=== PATIENT | male | born 1960 | race Caucasian/White ===

== ENCOUNTER → 2019-10-11 10:09 | Outpatient (POV) | payer MEDICAID, SELFPAY ==
[2019-10-11 10:33] VITALS: BP 128/70; PULSE 74; RESP 18; O2SAT 98; BMI 28.3
--- NOTE | 2019-10-11 11:21 | HMH.PMCON ---
Assessment and Plan (1) Degenerative joint disease (DJD) of lumbar spine Current visit: Yes Status: Chronic Category: Medical Code(s): M47.816 - Spondylosis without myelopathy or radiculopathy, lumbar region (2) Facet arthropathy Current visit: Yes Status: Chronic Category: Medical Code(s): M47.819 - Spondylosis without myelopathy or radiculopathy, site unspecified (3) Back pain Current visit: No Status: Chronic Qualifiers: Back pain location: low back pain Chronicity: chronic Back pain laterality: midline Sciatica presence: without sciatica Qualified Code(s): M54.5 - Low back pain; G89.29 - Other chronic pain Category: Medical Code(s): M54.9 - Dorsalgia, unspecified - Assessment and plan all Dx Assessment and Plan for all problems:: We will retrieve his notes from [facility] and move forward with the radiofrequency ablation once those are received. I will follow-up with the patient after this reassess his symptoms at that time he has been instructed to call the office if he has any issues prior to his next appointment. We specifically discussed risk factors for Covid-19 including age, heart or lung disease, diabetes, immunosuppression and travel. We also discussed that NSAIDs may worsen Covid-19 infection symptoms and that they should not be used to treat Covid-19 symptoms. Patient was also informed that corticosteroids in any form oral or injectable will decrease immune response and may increase risk of Covid-[address] Villarreal has reviewed this patient's chart and this note and agrees with plan of care. Patient has been instructed to call the office if they have any issues prior to the next appointment. HPI - Data of Consult Consult date: 10/11/19 Requesting Physician: Mellissa العراقي APRN Primary Care Provider: Darrel Shukla MD - Consult Narrative Reason for consult: Back pain, left leg pain History of present illness: Mr. Ridley is a 59 year old male who presents today for consultation in regards to his back and left leg pain. Patient has been being treated at the [facility] center in [place] getting epidural injections and facet joint injections and radiofrequency ablations. Patient states he does extremely well with this. He is awaiting a radiofrequency ablation of his lumbar spine. We will get the notes for this from his previous pain clinic. Patient would like to transfer care here due to the fact that it is much closer than the previous clinic. Patient does stay in an assisted living home where he receives medications including Percocet he states it is beneficial however he would prefer not to take the medication. He rates his pain today a 7 out of 10. CC: Mellissa العراقي APRN [facility] History I have reviewed the patient's past medical history: Yes Medical History: Reports:: Chronic Obstructive Pulmonary Disease (COPD), Diabetes Mellitus Type 2, Hyperlipidemia, Hypertension, Seizures Denies:: Cancer, MRSA *Have you ever received a pneumonia vaccine?: Yes *Have you received a flu vaccine this season?: Yes Other Medical History: Reports: Glaucoma Amputation: No - *Social History Smoking Status: Current every day smoker Alcohol Intake: never *Occupational Status:: disabled Housing: house *Travel in the last 8 weeks: None Family Hx:: Unable to obtain Review of Systems - Review of Systems ROS General: no recent weight change, no fever, no sleep disturbances Respiratory: no cough, no shortness of air, no recurring pulmonary infections Cardiovascular/Peripheral Vascular: No chest pain, No palpitations, no edema, no shortness of breath. Gastrointestinal: no new onset incontinence, normal bowel movements reported Genitourinary: no new onset incontinence Musculoskeletal: Back pain, leg pain Psychiatric: normal mood/ affect Neurological: [denies new onset weakness in extremities], [denies new onset balance issues] [facility]
== END ==
PROVIDERS: PCP Emergency Medicine; Visit Provider Clinical Nurse Specialist Family Health
DX: M51.36 Other intervertebral disc degeneration, lumbar region (principal); M47.816 Spondylosis without myelopathy or radiculopathy, lumbar region; M54.5 Low back pain; G89.29 Other chronic pain
CPT/HCPCS: 99202

== ENCOUNTER 2019-11-09 09:41 | Day surgery (SDC) | payer MEDICAID, SELFPAY ==
[2019-11-09 10:08] LABS: Adenovirus,PCR Not Detected (NotDetected); Bordetella Pertussis Not Detected (NotDetected); Chlamydophila Pneumoniae, PCR Not Detected (NotDetected); Coronavirus 19, PCR Not Detected (NotDetected); Coronavirus 229E Not Detected (NotDetected); Coronavirus NL63 Not Detected (NotDetected); Coronavirus OC43 Not Detected (NotDetected); Coronovirus HKU1,PCR Not Detected (NotDetected); Human Metapneumovirus Not Detected (NotDetected); Influenza A, PCR Not Detected (NotDetected); Influenza AH1, 2009 Not Detected (NotDetected); Influenza AH1, PCR Not Detected (NotDetected); Influenza AH3,PCR Not Detected (NotDetected); Influenza B, PCR Not Detected (NotDetected); Mycoplasma Pneumoniae, PCR Not Detected (NotDected); Parainfluenza 1, PCR Not Detected (NotDetected); Parainfluenza 2, PCR Not Detected (NotDetected); Parainfluenza 3, PCR Not Detected (NotDetected); Parainfluenza 4, PCR Not Detected (NotDetected); Respiratory Syncytial Virus Not Detected (NotDetected); Rhinovirus/Enterovirus Not Detected (NotDetected)
[2019-11-09 10:32] VITALS: BP 155/50; PULSE 60; RESP 18; TEMP 36.8; O2SAT 96; BMI 28.7
--- NOTE | 2019-11-09 11:00 | PC.NURSE ---
FSBS 345. Dr. Villarreal notified with no new orders.
[2019-11-09 11:01] LABS: POC Glucose,Bedside 345 (70-110)
[2019-11-09 12:29] VITALS: BP 165/84; PULSE 65; RESP 18; O2SAT 98
[2019-11-09 12:30] VITALS: BP 168/85; PULSE 85; RESP 18; O2SAT 98
--- NOTE | 2019-11-09 12:38 | HMH.PMPROC ---
- Procedure Date: 11/09/19 Time: 12:38 Anesthesiologist:: Steven Villarreal MD Complications:: None Pre-procedure Diagnosis:: Degenerative disc disease of lumbar spine with lumbar spondylosis and facet arthropathy of lumbar spine Post-procedure Diagnosis:: Same Indications for Procedure:: This patient is a pleasant 59-year-old white male who we are treating for low back pain with lumbar spondylosis and facet arthropathy of lumbar spine. He has had previous medial branch blocks with good relief of pain symptoms for several months. His pain is now returned. He presents for radiofrequency ablation to the same facet joints of L3-L4, 4 5 and L5-S1. We will start with the left side today followed by the right side in 2 weeks. Procedure Details:: Lumbar RFA informed consent was obtained and the risk and benefits of the procedure was explained to the patient. Patient was placed prone on the procedure table. The patient was prepped and draped in sterile fashion. C-arm fluoroscopy was used to view the lumbar spine. The skin and subcutaneous tissues were anesthetized using lidocaine. I placed 20-gauge RF needles into the facet joints of L3-L4, L4 5 and L5-S1 levels on the left side. We underwent sensory stimulation. There is good sensory stimulation at 0.8 V. We underwent motor stimulation. There is no motor stimulation at 2 V. We then anesthetized these levels with lidocaine and Depo-Medrol. I used a total of 40 mg Depo-Medrol for all 3 levels. I then burned all 3 levels of L3-L4, 4 5 and L5-S1 facet joint/medial branches on the left side each one for 4 minutes at 80 ?C. Patient tolerated the procedure well with no complication. Plan and Disposition:: We will follow-up with him in 2 weeks. Will reevaluate symptoms at that time.
[2019-11-09 12:41] VITALS: BP 155/60; PULSE 60; RESP 18; O2SAT 98
== END 2019-11-09 12:43 | disposition home or self-care (01) ==
PROVIDERS: PCP Emergency Medicine; Visit Provider Anesthesiology
DX: M51.36 Other intervertebral disc degeneration, lumbar region (principal); M47.816 Spondylosis without myelopathy or radiculopathy, lumbar region; M54.06 Panniculitis affecting regions of neck and back, lumbar region
CPT/HCPCS: 64635; 64636; 82962; 87581; 87633; 87798; Q9966

== ENCOUNTER → 2019-11-21 09:06 | Outpatient (POV) | payer MEDICAID, SELFPAY ==
[2019-11-21 09:25] VITALS: BP 163/74; PULSE 78; RESP 18; O2SAT 98; BMI 28.3
--- NOTE | 2019-11-21 09:25 | HMH.PAINSOAP ---
[facility] Pain Management SOAP Note Subjective:: Patient is a pleasant 59-year-old white male who we are treating for low back pain with lumbar spondylosis and facet arthropathy. He is only affected on the left side. Patient has had RFA's in the past with good relief however he is having some increased pain after his last injection. We discussed how to manage this. We discussed either utilizing a facet joint injection to decrease inflammation or an oral steroid. Patient states he is unable to take oral steroids due to his diabetes. We will set him up for an L3-L4 L4-L5 L5-S1 left-sided facet joint injection. He rates his pain a 7 out of 10. Pain is quite focal in nature. He is not on any anticoagulation therapy. ROS General: no recent weight change, no fever, no sleep disturbances Respiratory: no cough, no shortness of air, no recurring pulmonary infections Cardiovascular/Peripheral Vascular: No chest pain, No palpitations, no edema, no shortness of breath. Gastrointestinal: no new onset incontinence, normal bowel movements reported Genitourinary: no new onset incontinence Musculoskeletal: Left lumbar back pain Psychiatric: normal mood/ affect, Neurological: [denies new onset weakness in extremities], [denies new onset balance issues] Objective:: Physical Exam General: Alert and oriented x3, no acute distress, pleasant and cooperative, [on room air] Lungs: Resps E/U, Symmetrical chest expansion, Eyes: PERRL Musculoskeletal: Flexion and extension of lumbar spine somewhat guarded secondary to pain, deep tendon reflexes normal, strength in upper and lower extremities [5/5], [abnormal gait noted] Neurological: speech clear, financial data analyst equal, no gross sensory deficits Assessment:: Degenerative disc disease lumbar spine lumbar spondylosis lumbar facet arthropathy Plan:: We will move forward with a left-sided L3-L4 L4-L5 L5-S1 facet joint injection/medial branch block. I will follow-up with him after this reassess his symptoms at that time. Patient's been instructed to call the office if she has any issues prior to his next appointment. Dr. Villarreal has reviewed this note and agrees with this plan of care. This note was dictated using voice recognition software and may contain errors or omissions [facility] History I have reviewed the patient's past medical history: Yes Medical History: Reports:: Chronic Obstructive Pulmonary Disease (COPD), Diabetes Mellitus Type 1, Diabetes Mellitus Type 2, Hyperlipidemia, Hypertension Denies:: Cancer, MRSA, Seizures *Have you ever received a pneumonia vaccine?: No *Have you received a flu vaccine this season?: No Other Medical History: Reports: Glaucoma Amputation: No - *Social History Smoking Status: Current every day smoker Tobacco Type: cigarettes # Packs/Day (cigarettes): 1 Alcohol Intake: never *Occupational Status:: retired Housing: house *Travel in the last 8 weeks: None Family Hx:: Unable to obtain
== END ==
PROVIDERS: PCP Emergency Medicine; Visit Provider Clinical Nurse Specialist Family Health
DX: M51.36 Other intervertebral disc degeneration, lumbar region (principal); M47.816 Spondylosis without myelopathy or radiculopathy, lumbar region; M54.06 Panniculitis affecting regions of neck and back, lumbar region
CPT/HCPCS: 99212

== ENCOUNTER → 2019-11-29 12:11 | Outpatient (CLI) | payer MEDICAID, SELFPAY ==
--- NOTE | 2019-11-29 12:18 | XR_ITS ---
PROCEDURE: XR KNEE LT 4V CLINICAL INDICATION: left knee pain COMPARISON: No exams were available for comparison FINDINGS: No fracture or dislocation. No lytic or blastic change. There is normal mineralization. The joint spaces are well-preserved. No significant degenerative/arthritic changes. No erosive changes evident. Other findings:None. IMPRESSION: No acute findings. Dictated by: Dr. Sang Manning MD 11/29/2019 13:[address] Sang Manning MD in [place] 11/29/2019 13:11
--- NOTE | 2019-11-29 12:18 | XR_ITS ---
PROCEDURE: XR TIBIA FIBULA LT 2V CLINICAL INDICATION: left leg pain COMPARISON: No exams were available for comparison FINDINGS: AP and lateral views show the tibia and fibula to be intact. There is no definite cystic lesion identified in either bone. The soft tissues are normal. The knee is only partially visualized but there is no significant degenerate change noted. IMPRESSION: No acute findings. Dictated by: Dr. Sang Manning MD 11/29/2019 13:[address] Sang Manning MD in [place] 11/29/2019 13:11
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
== END ==
PROVIDERS: PCP Emergency Medicine; Visit Provider Orthopaedic Surgery
DX: M25.562 Pain in left knee (principal); M79.605 Pain in left leg; M25.552 Pain in left hip
CPT/HCPCS: 73502; 73564; 73590

== ENCOUNTER 2019-12-02 09:53 | Day surgery (SDC) | payer MEDICAID, SELFPAY ==
[2019-12-02 10:28] VITALS: BP 139/59; PULSE 62; RESP 18; O2SAT 98; BMI 28.3
[2019-12-02 10:34] LABS: POC Glucose,Bedside 253 (70-110)
[2019-12-02 11:13] VITALS: BP 152/87; PULSE 85
[2019-12-02 11:14] VITALS: BP 150/78; PULSE 82; RESP 18; O2SAT 99
[2019-12-02 11:24] VITALS: BP 154/56; PULSE 63; RESP 20; O2SAT 98
--- NOTE | 2019-12-02 12:06 | HMH.PMPROC ---
- Procedure Date: 12/02/19 Time: 12:06 Anesthesiologist:: Steven Villarreal MD Complications:: None Pre-procedure Diagnosis:: Degenerative disc disease of lumbar spine with more spondylosis and facet arthropathy Post-procedure Diagnosis:: Same Indications for Procedure:: Patient is a pleasant 59-year-old white male who we are treating for low back pain with lumbar spondylosis and facet arthropathy. He has had RFA's in the past with good relief of his pain symptoms. Pain is now starting to come back on the left side. We will do repeat medial branch block/facet joint injections of L3-L4, 4 5 and L5-S1 left side. Procedure Details:: Lumbar medial branch block Informed consent was obtained and the risks and benefits of the procedure was explained to the patient. The back was prepped using ChloraPrep. The skin and subcutaneous tissues were anesthetized using lidocaine. I placed 22-gauge spinal needles into the facet joint/medial branches of L3-L4, L4-L5 and L5-S1 on the left side. Needle placement was confirmed with dye. After this we injected 3 mL bupivacaine 0.25% and Depo-Medrol 13 mg into each facet joint/medial branch of L3-L4, L5 and L5-S1 on the left side. We used a total of 40 mg Depo-Medrol for all 3 levels on the left side. The patient tolerated the procedure well with no complications. Plan and Disposition:: We will follow-up with him in 2 weeks. Will reevaluate symptoms at that time. If this is successful we will plan on RFA to the facet joint/medial branches of L3-4, L4-5 and L5-S1 on the left side.
== END 2019-12-02 11:25 | disposition home or self-care (01) ==
LOC: SC.PAINP 09:53
PROVIDERS: PCP Emergency Medicine; Visit Provider Anesthesiology
DX: M51.36 Other intervertebral disc degeneration, lumbar region (principal); M47.816 Spondylosis without myelopathy or radiculopathy, lumbar region; M12.88 Other specific arthropathies, not elsewhere classified, other specified site; I10 Essential (primary) hypertension; E11.9 Type 2 diabetes mellitus without complications; Z91.040 Latex allergy status
CPT/HCPCS: 64493; 64494; 64495; 82962; J1040; Q9966

== ENCOUNTER → 2019-12-06 10:37 | Outpatient (CLI) | payer MEDICAID, SELFPAY ==
--- NOTE | 2019-12-06 10:37 | MR_ITS ---
PROCEDURE: MR KNEE LT WO CON CLINICAL INDICATION: evaluate for tears/ cysts Medial knee pain COMPARISON: XR KNEE LT 4V from 11/29/2019 TECHNIQUE: Routine multiplanar multi echo sequences are performed without gadolinium enhancement. FINDINGS: The cruciate ligaments, collateral ligaments, quadriceps tendon, and patellar tendon appear intact. Patellar cartilage has an unremarkable appearance. No meniscal tear evident. There are mild osteoarthritic changes. There is a small knee joint effusion. IMPRESSION: Minimal osteoarthritic changes with small knee joint effusion. No internal derangement evident. Dictated by: Kaden Franklin MD 12/07/2019 14:23 Electronically signed by Kaden Franklin MD in [place] 12/07/2019 14:23
== END ==
PROVIDERS: PCP Emergency Medicine; Visit Provider Orthopaedic Surgery
DX: M25.562 Pain in left knee (principal); G89.29 Other chronic pain; M17.12 Unilateral primary osteoarthritis, left knee
CPT/HCPCS: 73721

== ENCOUNTER → 2019-12-26 13:34 | Outpatient (POV) | payer MEDICAID, SELFPAY ==
[2019-12-26 14:19] VITALS: BP 137/61; PULSE 62; RESP 18; TEMP 36.8; O2SAT 99; BMI 28.3
--- NOTE | 2019-12-27 08:48 | P.CONS_ITS ---
[facility] Pain Management SOAP Note Subjective:: Patient is a very pleasant 59-year-old white male who we are treating for low back pain with lumbar spondylosis facet arthropathy and radiculopathy. He has had an RFA on his left side and is doing extremely well. Patient states his only pain at this time is radiation of pain down his legs. He has had epidurals in the past with 80% relief of his symptomology. Patient not on any anticoagulation therapy. He would like to move forward with a lumbar epidural steroid injection. ROS General: no recent weight change, no fever, no sleep disturbances Respiratory: no cough, no shortness of air, no recurring pulmonary infections Cardiovascular/Peripheral Vascular: No chest pain, No palpitations, no edema, no shortness of breath. Gastrointestinal: no new onset incontinence, normal bowel movements reported Genitourinary: no new onset incontinence Musculoskeletal: Back pain, leg pain Psychiatric: normal mood/ affect Neurological: [denies new onset weakness in extremities], [denies new onset balance issues] Objective:: Physical Exam General: Alert and oriented x3, no acute distress, pleasant and cooperative, [on room air] Lungs: Resps E/U, Symmetrical chest expansion, Eyes: PERRL Musculoskeletal: Flexion and extension of lumbar spine somewhat guarded secondary to pain, deep tendon reflexes normal, strength in upper and lower extremities [5/5], [abnormal gait noted] Neurological: speech clear, agency service coordinator equal, no gross sensory deficits Assessment:: Degenerative disc disease lumbar spine lumbar radiculopathy, facet arthropathy spondylosis Plan:: We will schedule L4-L5 lumbar epidural steroid injection for the patient given the efficacy of this in the past I do believe it would benefit him he has been instructed to call the office if he has any issues prior to his next appointment. Dr. Villarreal has reviewed this note and agrees with this plan of care. This note was dictated using voice recognition software and may contain errors or omissions [facility] History I have reviewed the patient's past medical history: Yes Medical History: Reports:: Chronic Obstructive Pulmonary Disease (COPD), Dementia, Depression, Diabetes Mellitus Type 1, Diabetes Mellitus Type 2, Gastroesophageal Reflux Disease(GERD), Hyperlipidemia, Hypertension, Seizures Denies:: Cancer, MRSA *Have you ever received a pneumonia vaccine?: Yes *Have you received a flu vaccine this season?: Yes Other Medical History: Reports: Arthritis, Glaucoma Laterality Cases: Right: Other Other Surgeries: Yes: Colonoscopy Amputation: No Fractures: No - *Social History Smoking Status: Current every day smoker Tobacco Type: cigarettes # Packs/Day (cigarettes): 1 Alcohol Intake: never *Occupational Status:: other Housing: house *Travel in the last 8 weeks: None - Psychiatric History Pschychiatric History:: Reports:: Depression Family Hx:: Unable to obtain
== END ==
PROVIDERS: PCP Emergency Medicine; Visit Provider Clinical Nurse Specialist Family Health
DX: M51.16 Intervertebral disc disorders with radiculopathy, lumbar region (principal); M47.816 Spondylosis without myelopathy or radiculopathy, lumbar region; M12.88 Other specific arthropathies, not elsewhere classified, other specified site
CPT/HCPCS: 99212

== ENCOUNTER 2020-01-13 09:48 | Day surgery (SDC) | payer MEDICAID, SELFPAY ==
[2020-01-13 10:17] VITALS: BP 144/60; PULSE 65; RESP 18; TEMP 36.7; O2SAT 98; BMI 28.3
[2020-01-13 10:52] VITALS: BP 140/68; BP 144/72; PULSE 66; RESP 18; O2SAT 98
--- NOTE | 2020-01-13 10:54 | HMH.PMPROC ---
- Procedure Date: 01/13/20 Time: 10:54 Anesthesiologist:: Steven Villarreal MD Complications:: None Pre-procedure Diagnosis:: Degenerative disc disease of lumbar spine with lumbar radiculopathy symptoms Post-procedure Diagnosis:: Same Indications for Procedure:: This patient is a pleasant 60-year-old white male who we are treating for low back pain with lumbar radiculopathy symptoms. He is status post RFA to the lumbar facet joints. He is doing very well. He still has some radicular symptoms. We will do a lumbar epidural steroid injection today to help him with his symptoms. Procedure Details:: Lumbar epidural Informed consent was obtained and the risk and benefits of the procedure was explained to the patient. The patient was taken to the procedure room. The patient was placed prone on the procedure table. The patient was prepped and draped in sterile fashion. C-arm fluoroscopy was used to view the lumbar spine. Skin and subcutaneous tissues were anesthetized using lidocaine. I placed an 18-gauge epidural needle and advanced into the L4-L5 interspace using fluoroscopic guidance and [id number] to air. After confirmation of needle placement in the epidural space with dye I injected 2 mL of lidocaine 1.5% with Depo-Medrol 80 mg. Patient tolerated the procedure well with no complications. Plan and Disposition:: We will follow-up with him in 2 weeks. Will reevaluate symptoms at that time.
[2020-01-13 11:05] VITALS: BP 142/61; PULSE 60; RESP 18; O2SAT 98
== END 2020-01-13 11:05 | disposition home or self-care (01) ==
LOC: SC.PAINP 09:50
PROVIDERS: PCP Emergency Medicine; Visit Provider Anesthesiology
DX: M51.16 Intervertebral disc disorders with radiculopathy, lumbar region (principal); I10 Essential (primary) hypertension; J44.9 Chronic obstructive pulmonary disease, unspecified; E78.5 Hyperlipidemia, unspecified; F03.90 Unspecified dementia, unspecified severity, without behavioral disturbance, psychotic disturbance, mood disturbance, and anxiety; Z72.0 Tobacco use; E11.9 Type 2 diabetes mellitus without complications; Z88.6 Allergy status to analgesic agent; Z88.8 Allergy status to other drugs, medicaments and biological substances; Z79.82 Long term (current) use of aspirin; Z79.4 Long term (current) use of insulin; Z79.899 Other long term (current) drug therapy
CPT/HCPCS: 62323; J1040; Q9966

== ENCOUNTER → 2020-02-02 09:51 | Outpatient (POV) | payer MEDICAID, SELFPAY ==
[2020-02-02 10:41] VITALS: BP 133/87; PULSE 85; RESP 18; TEMP 36.6; O2SAT 98; BMI 29.0
--- NOTE | 2020-02-02 10:45 | HMH.PAINSOAP ---
[facility] Pain Management SOAP Note Subjective:: Patient is a pleasant 60-year-old white male who presents today for follow-up after lumbar epidural steroid injection. He has been treated for low back pain with lumbar radiculopathy symptoms. Patient says his pain is a 3 out of 10 today. He says he is doing well since having his injection. He says his pain is tolerable and he is not having any problems at this time. Review of Systems General: No recent weight changes, no fever, no sleep disturbances Respiratory: No cough, no shortness of air, no recurring pulmonary infections Cardiovascular/peripheral vascular: No chest pain, no palpitations, no edema, no shortness of breath Gastrointestinal: No new onset incontinence, normal bowel movements reported Genitourinary: No new onset incontinence Musculoskeletal: Intermittent low back pain Psychiatric: Normal mood/affect Neurological: [Denies weakness in extremities], [denies balance issues] Objective:: Physical exam General: Alert and oriented x3, no acute distress, pleasant and cooperative, [on room air] Lungs: Respirations even and unlabored, symmetrical chest expansion Eyes: PERRL Musculoskeletal: Flexion and extension of lumbar spine somewhat guarded secondary to pain, deep tendon reflexes normal, strength in upper and lower extremities [5/5], [abnormal gait noted] Neurological: Speech clear, dialysis registered nurse equal, no gross sensory deficit Assessment:: Degenerative disc disease lumbar spine with lumbar radiculopathy symptoms Plan:: Overall, the patient is doing well. We will plan to follow-up with him in 3 months. He has been instructed to contact clinic if he has any concerns for his next appointment. The patient and I specifically discussed risk factors for COVID19. These risks include, but are not limited to age greater than 60, heart or lung disease, diabetes, immunosuppression, and travel. We also discussed NSAIDs may worsen COVID19 infection or symptoms. Patient should not use NSAIDs to treat COVID19 signs or symptoms. Patient was also informed that any type of corticosteroid of any form (oral or injection) will decrease the patient's immune system response and may increase the likelihood of COVID19 infection [address] symptoms[address] Villarreal has reviewed this note and agrees with this plan of care. This note was dictated using voice recognition software and make contain errors or omissions. [facility] History I have reviewed the patient's past medical history: Yes Medical History: Reports:: Chronic Obstructive Pulmonary Disease (COPD), Dementia, Depression, Diabetes Mellitus Type 1, Diabetes Mellitus Type 2, Gastroesophageal Reflux Disease(GERD), Hyperlipidemia, Hypertension Denies:: Cancer, MRSA, Seizures *Have you ever received a pneumonia vaccine?: Yes *Have you received a flu vaccine this season?: Yes Other Medical History: Reports: Arthritis, Glaucoma Laterality Cases: Right: Other Other Surgeries: Yes: Colonoscopy Amputation: No Fractures: No - *Social History Smoking Status: Current every day smoker Tobacco Type: cigarettes # Packs/Day (cigarettes): 1 Alcohol Intake: never *Occupational Status:: other Housing: house *Travel in the last 8 weeks: None - Psychiatric History Pschychiatric History:: Reports:: Depression Family Hx:: Unable to obtain
== END ==
PROVIDERS: PCP Emergency Medicine; Visit Provider Clinical Nurse Specialist Family Health
DX: M51.16 Intervertebral disc disorders with radiculopathy, lumbar region (principal)
CPT/HCPCS: 99212

== ENCOUNTER → 2020-05-03 10:27 | Outpatient (POV) | payer MEDICAID, SELFPAY ==
--- NOTE | 2020-05-03 10:48 | HMH.PAINSOAP ---
[facility] Pain Management SOAP Note Subjective:: Patient is a pleasant 60-year-old white male who presents today for follow-up. The patient is treated for chronic low back pain. Today, he is having pain in his bilateral low back with radiation into his hips. He says the pain is worse to the left side. The pain does radiate into his left lateral thigh stopping at the knee. The pain is worse with standing and walking. He is tender over bilateral SI joints. He also has a positive Vicky's, SI compression, and distraction test. Patient does rate his pain a 5 out of 10 today. He does have some numbness and tingling as well in his left leg. Patient does undergo physical therapy and the long-term care facility that he believes in as well as a continued stretching program. The patient also uses ice and heat therapies as needed. Patient is not on any anticoagulation therapy. Review of Systems General: No recent weight changes, no fever, no sleep disturbances Respiratory: No cough, no shortness of air, no recurring pulmonary infections Cardiovascular/peripheral vascular: No chest pain, no palpitations, no edema, no shortness of breath Gastrointestinal: No new onset incontinence, normal bowel movements reported Genitourinary: No new onset incontinence Musculoskeletal: Lateral low back pain, left leg pain, bilateral hip pain Psychiatric: Normal mood/affect Neurological: [Denies weakness in extremities], [denies balance issues] Objective:: Physical exam General: Alert and oriented x3, no acute distress, pleasant and cooperative, [on room air] Lungs: Respirations even and unlabored, symmetrical chest expansion Eyes: PERRL Musculoskeletal: Flexion and extension of bar spine somewhat guarded secondary to pain, deep tendon reflexes normal, strength in upper and lower extremities [5/5], [abnormal gait noted] positive Vicky's test, positive distraction test, positive compression test Neurological: Speech clear, 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 We will see him back in the clinic after his injections to reassess his symptoms. Patient does have tenderness noted over bilateral SI joints. He has a positive Vicky's, distraction, and compression test. He does continue with physical therapy and home stretching at the long-term care facility. He will also continue with ice and heat therapies. Patient has been instructed to contact the clinic if he has any concerns before his next appointment. The patient and I specifically discussed risk factors for COVID19. These risks include, but are not limited to age greater than 60, heart or lung disease, diabetes, immunosuppression, and travel. We also discussed NSAIDs may worsen COVID19 infection or symptoms. Patient should not use NSAIDs to treat COVID19 signs or symptoms. Patient was also informed that any type of corticosteroid of any form (oral or injection) will decrease the patient's immune system response and may increase the likelihood of COVID19 infection and symptoms[address]. Villarreal has reviewed this note and agrees with this plan of care. This note was dictated using voice recognition software and make contain errors or omissions. [facility] History I have reviewed the patient's past medical history: Yes Medical History: Reports:: Chronic Obstructive Pulmonary Disease (COPD), Dementia, Depression, Diabetes Mellitus Type 1, Diabetes Mellitus Type 2, Gastroesophageal Reflux Disease(GERD), Hyperlipidemia, Hypertension Denies:: Cancer, MRSA, Seizures *Have you ever received a pneumonia vaccine?: Yes *Have you received a flu vaccine this season?: Yes Other Medical History: Reports: Arthritis, Glaucoma Laterality Cases: Right: Other Other Surgeries: Yes: Colonoscopy Amputation: No Fractures: No - *Social History Smoking Status: Araceli
[2020-05-03 10:52] VITALS: BP 133/74; PULSE 78; RESP 18; O2SAT 98; BMI 30.9
== END ==
PROVIDERS: PCP Emergency Medicine; Visit Provider Clinical Nurse Specialist Family Health
DX: M51.36 Other intervertebral disc degeneration, lumbar region (principal); M46.1 Sacroiliitis, not elsewhere classified; G89.29 Other chronic pain
CPT/HCPCS: 99212

== ENCOUNTER 2020-05-11 12:54 | Day surgery (SDC) | payer MEDICAID, SELFPAY ==
[2020-05-11 13:30] LABS: POC Glucose,Bedside 232 (70-110)
[2020-05-11 13:32] VITALS: BP 142/60; PULSE 67; RESP 18; TEMP 36.7; O2SAT 97; BMI 29.2
[2020-05-11 13:53] VITALS: BP 133/76; PULSE 88; RESP 18; O2SAT 98
[2020-05-11 13:54] VITALS: BP 134/74; PULSE 88; RESP 18; O2SAT 98
[2020-05-11 14:04] VITALS: BP 151/62; PULSE 68; RESP 20; O2SAT 97
--- NOTE | 2020-05-11 14:09 | P.PCN_ITS ---
- Procedure Date: 05/11/20 Time: 14:09 Anesthesiologist:: Steven Villarreal MD Complications:: None Pre-procedure Diagnosis:: Sacroiliitis Post-procedure Diagnosis:: Same Indications for Procedure:: This patient is a pleasant 60-year-old white male who we are treating for bilateral hip pain. He is tender over both SI joints. He has positive Vicky's test bilaterally. Is positive Hamlet test bilaterally. Is positive SI joint compression test and distraction tests bilaterally. We will do bilateral SI joint injections today to help with his pain symptoms. Procedure Details:: B/L SI joint injection under fluoroscopy Informed consent was obtained and the risks and benefits of the procedure was explained to the patient. The patient was taken to the procedure room and placed prone on the procedure table. The patient was prepped using ChloraPrep. The skin and subcutaneous tissues overlying the SI joints were anesthetized using lidocaine. I placed a 22-gauge needle first in the left SI joint and second in the right SI joint. Needle placement was confirmed with dye. After this we injected 5 mL bupivacaine 0.25% and Depo-Medrol 40 mg into each SI j oint. Patient tolerated the procedure well with no complication. Plan and Disposition:: We will follow-up with him in 2 weeks. Will reevaluate symptoms at that time.
== END 2020-05-11 14:05 | disposition home or self-care (01) ==
LOC: SC.PAINP 12:55
PROVIDERS: PCP Emergency Medicine; Visit Provider Anesthesiology
DX: M46.1 Sacroiliitis, not elsewhere classified (principal); J44.9 Chronic obstructive pulmonary disease, unspecified; E11.9 Type 2 diabetes mellitus without complications; Z87.39 Personal history of other diseases of the musculoskeletal system and connective tissue; Z88.6 Allergy status to analgesic agent
CPT/HCPCS: 27096; 82962; G0260; J1030; Q9966

== ENCOUNTER → 2020-06-07 10:19 | Outpatient (POV) | payer MEDICAID, SELFPAY ==
[2020-06-07 10:40] VITALS: BP 136/88; PULSE 74; RESP 18; TEMP 36.6; O2SAT 98; BMI 29.2
--- NOTE | 2020-06-07 10:54 | HMH.PAINSOAP ---
[facility] Pain Management SOAP Note Subjective:: Patient is a 60-year-old white male who presents today for follow-up after SI joint injection. Patient says that he got about 80% relief with the injections. He is having now, pain into his low back that radiates into bilateral legs, worse to the right leg. He says he is having numbness and tingling to the foot. He has undergone lumbar epidural steroid injections in the past for which he gets about 80% relief for greater than 2 weeks. He has tried other modalities of therapy which include oral medications, and home stretching. Patient has had physical therapy in the past. He would like to proceed with a repeat lumbar epidural steroid injection. He is not on any anticoagulation therapy. Review of Systems General: No recent weight changes, no fever, no sleep disturbances Respiratory: No cough, no shortness of air, no recurring pulmonary infections Cardiovascular/peripheral vascular: No chest pain, no palpitations, no edema, no shortness of breath Gastrointestinal: No new onset incontinence, normal bowel movements reported Genitourinary: No new onset incontinence Musculoskeletal: Low back pain with radiation into bilateral legs, worse to right leg with numbness and tingling. 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 We will proceed with a repeat lumbar epidural steroid injection at L4-L5. The patient is not on any anticoagulation therapy. He has had these injections in the past and has gotten up to 80% relief for greater than 2 weeks. We will see him back in the clinic after his injection to reevaluate his symptoms. He has been instructed to contact clinic if he has any concerns before his next appointment. The patient and I specifically discussed risk factors for COVID19. These risks include, but are not limited to age greater than 60, heart or lung disease, diabetes, immunosuppression, and travel. We also discussed NSAIDs may worsen COVID19 infection or symptoms. Patient should not use NSAIDs to treat COVID19 signs or symptoms. Patient was also informed that any type of corticosteroid of any form (oral or injection) will decrease the patient's immune system response and may increase the likelihood of COVID19 infection and symptoms[address] Villarreal has reviewed this note and agrees with this plan of care. This note was dictated using voice recognition software and make contain errors or omissions. [facility] History I have reviewed the patient's past medical history: Yes Medical History: Reports:: Chronic Obstructive Pulmonary Disease (COPD), Dementia, Depression, Diabetes Mellitus Type 1, Gastroesophageal Reflux Disease(GERD), Hyperlipidemia, Hypertension, Seizures Denies:: Cancer, Diabetes Mellitus Type 2, MRSA *Have you ever received a pneumonia vaccine?: Yes *Have you received a flu vaccine this season?: Yes Other Medical History: Reports: Arthritis, Glaucoma. Denies: Blood Transfusion Reaction Laterality Cases: Right: Other Other Surgeries: Yes: Colonoscopy Amputation: No Fractures: No - *Social History Smoking Status: Current every day smoker Tobacco Type: cigarettes # Packs/Day (cigarettes): 1 Alcohol Intake: never *Occupational Status:: disabled Housing: [facility] *Travel in the last 8 weeks: None - Psychiatric History
== END ==
PROVIDERS: PCP Emergency Medicine; Visit Provider Clinical Nurse Specialist Family Health
DX: M51.16 Intervertebral disc disorders with radiculopathy, lumbar region (principal)
CPT/HCPCS: 99212

== ENCOUNTER → 2020-10-31 13:39 | Outpatient (POV) | payer MEDICAID, SELFPAY | DX: Z00.00 Encounter for general adult medical examination without abnormal findings (principal) ==

== ENCOUNTER → 2020-11-15 10:28 | Outpatient (POV) | payer MEDICAID, SELFPAY ==
[2020-11-15 10:46] VITALS: BP 153/63; PULSE 68; RESP 18; O2SAT 98; BMI 31.5
--- NOTE | 2020-11-15 11:26 | P.CONS_ITS ---
[facility] Pain Management SOAP Note Subjective:: Is a pleasant 60-year-old white male who presents today for follow-up. Patient is awaiting a L4-L5 lumbar epidural steroid injection. Due to Covid restrictions he was unable to move forward with that he would like to continue with the process at this time. He has low back pain with bilateral lower extremity pain he rates his pain 8 out of 10. He is done well with injection therapy in the past. Patient has tried and failed physical therapy. Patient is not on any anticoagulation therapy. ROS General: no recent weight change, no fever, no sleep disturbances Respiratory: no cough, no shortness of air, no recurring pulmonary infections Cardiovascular/Peripheral Vascular: No chest pain, No palpitations, no edema, no shortness of breath. Gastrointestinal: no new onset incontinence, normal bowel movements reported Genitourinary: no new onset incontinence Musculoskeletal: Back pain, leg pain Psychiatric: normal mood/ affect Neurological: [denies new onset weakness in extremities], [denies new onset balance issues] Objective:: Physical Exam General: Alert and oriented x3, no acute distress, pleasant and cooperative, [on room air] Lungs: Resps E/U, Symmetrical chest expansion, Eyes: PERRL Musculoskeletal: Flexion and extension of lumbar spine somewhat guarded secondary to pain, deep tendon reflexes normal, strength in upper and lower extremities [5/5], [abnormal gait noted] Neurological: speech clear, housing coordinator 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 Given the symptomology I do believe it would benefit him. I will follow-up with him afterwards reassess his symptoms at that time he has been instructed to call the office if he has any issues prior to his next appointment. Dr. Villarreal has reviewed this note and agrees with this plan of care. This note was dictated using voice recognition software and may contain errors or omissions [facility] History I have reviewed the patient's past medical history: Yes Medical History: Reports:: Chronic Obstructive Pulmonary Disease (COPD), Dementia, Depression, Diabetes Mellitus Type 1, Gastroesophageal Reflux Disease(GERD), Hyperlipidemia, Hypertension, Seizures Denies:: Cancer, Diabetes Mellitus Type 2, MRSA *Have you ever received a pneumonia vaccine?: Yes *Have you received a flu vaccine this season?: Yes Other Medical History: Reports: Arthritis, Glaucoma. Denies: Blood Transfusion Reaction Laterality Cases: Right: Other Other Surgeries: Yes: Colonoscopy Amputation: No Fractures: No - *Social History Smoking Status: Current every day smoker Tobacco Type: cigarettes # Packs/Day (cigarettes): 1 Alcohol Intake: never *Occupational Status:: disabled Housing: group home *Travel in the last 8 weeks: None - Psychiatric History Pschychiatric History:: Reports:: Depression Family Hx:: Unable to obtain
== END ==
PROVIDERS: Visit Provider Clinical Nurse Specialist Family Health
DX: M51.16 Intervertebral disc disorders with radiculopathy, lumbar region (principal)
CPT/HCPCS: 99212; G0463

== ENCOUNTER 2020-11-23 12:35 | Day surgery (SDC) | payer MEDICAID, SELFPAY ==
[2020-11-23 13:05] VITALS: BP 158/64; PULSE 57; RESP 20; TEMP 36.8; O2SAT 97; BMI 33.6
[2020-11-23 13:32] VITALS: BP 132/85; PULSE 85; RESP 18; O2SAT 98
[2020-11-23 13:33] VITALS: BP 139/74; PULSE 85; RESP 18; O2SAT 98
--- NOTE | 2020-11-23 13:40 | HMH.PMPROC ---
- Procedure Date: 11/23/20 Time: 13:40 Anesthesiologist:: Steven Villarreal MD Complications:: None Pre-procedure Diagnosis:: Degenerative disc disease of lumbar spine with lumbar radiculopathy symptoms Post-procedure Diagnosis:: Same Indications for Procedure:: Patient is a pleasant 60-year-old white male who we are treating for low back pain with lumbar radiculopathy symptoms. Most of his pain is in the back rating down both legs. Will do lumbar epidural steroid injection today to help with his pain symptoms. Procedure Details:: Informed consent was obtained and the risk and benefits of the procedure was explained to the patient. The patient was taken to the procedure room. The patient was placed prone on the procedure table. The patient was prepped and draped in sterile fashion. C-arm fluoroscopy was used to view the lumbar spine. Skin and subcutaneous tissues were anesthetized using lidocaine. I placed an 18-gauge epidural needle and advanced into the L4-L5 interspace using fluoroscopic guidance and [id number] to air. After confirmation of needle placement in the epidural space with dye I injected 2 mL of lidocaine 1.5% with Depo-Medrol 80 mg. Patient tolerated the procedure well with no complications. Plan and Disposition:: We will follow-up with him in 2 weeks. Will reevaluate his symptoms at that time.
[2020-11-23 13:55] VITALS: BP 169/70; PULSE 56; RESP 20; O2SAT 18
== END 2020-11-23 13:56 | disposition home or self-care (01) ==
LOC: SC.PAINP 12:37
PROVIDERS: PCP Emergency Medicine; Visit Provider Anesthesiology
DX: M51.16 Intervertebral disc disorders with radiculopathy, lumbar region (principal); E78.5 Hyperlipidemia, unspecified; I10 Essential (primary) hypertension; M19.90 Unspecified osteoarthritis, unspecified site; E10.9 Type 1 diabetes mellitus without complications; J44.9 Chronic obstructive pulmonary disease, unspecified; F32.9 Major depressive disorder, single episode, unspecified; F03.90 Unspecified dementia, unspecified severity, without behavioral disturbance, psychotic disturbance, mood disturbance, and anxiety; R56.9 Unspecified convulsions; Z72.0 Tobacco use; Z88.6 Allergy status to analgesic agent; Z88.8 Allergy status to other drugs, medicaments and biological substances
CPT/HCPCS: 62323; J1040; Q9966

== ENCOUNTER → 2020-12-20 11:22 | Outpatient (POV) | payer MEDICAID, SELFPAY ==
[2020-12-20 11:45] VITALS: BP 138/69; PULSE 63; RESP 20; O2SAT 96; BMI 31.5
--- NOTE | 2020-12-20 11:57 | HMH.PAINSOAP ---
[facility] Pain Management SOAP Note Subjective:: Patient is a pleasant 60-year-old white male who presents today for follow-up. He has been treated for degenerative disc disease lumbar spine with lumbar radiculopathy symptoms. He recently had a lumbar epidural steroid injection at L4-L5 area. It was performed on 11/23/2020. He got 70% relief until the last week. His pain has returned. It is primarily down and to the right low back area, right leg, and right foot with numbness and tingling. He rates his pain a 8 out of 10 today. He would like to undergo a repeat lumbar epidural steroid injection. Patient is in a long-term care facility. He does undergo physical therapy and uses ice and heat therapies. Review of Systems General: No recent weight changes, no fever, no sleep disturbances Respiratory: No cough, no shortness of air, no recurring pulmonary infections Cardiovascular/peripheral vascular: No chest pain, no palpitations, no edema, no shortness of breath Gastrointestinal: No new onset incontinence, normal bowel movements reported Genitourinary: No new onset incontinence Musculoskeletal: Low back pain with radiation into right leg and foot with numbness and tingling Psychiatric: Normal mood/affect Neurological: [Denies weakness in extremities], [denies balance issues] Objective:: Physical exam General: Alert and oriented x3, no acute distress, pleasant and cooperative, [on room air] Lungs: Respirations even and unlabored, symmetrical chest expansion Eyes: PERRL Musculoskeletal: Flexion and extension of lumbar spine somewhat guarded secondary to pain, deep tendon reflexes normal, strength in upper and lower extremities [5/5], [abnormal gait noted] Neurological: 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 The patient is not on any anticoagulation therapy. He has previously undergone a lumbar epidural steroid injection and got 70% relief until the last week. We will see him back after his injection to reevaluate his symptoms. Risks and benefits of the procedure have been explained to the patient. Patient would like to proceed with the procedure. Possible side effects of corticosteroids been discussed with the patient. Patient has been instructed to contact the clinic with any concerns before the next appointment. Dr. Villarreal has reviewed this note and agrees with this plan of care. This note was dictated using voice recognition software and make contain errors or omissions. [facility] History I have reviewed the patient's past medical history: Yes Medical History: Reports:: Chronic Obstructive Pulmonary Disease (COPD), Dementia, Depression, Diabetes Mellitus Type 2, Gastroesophageal Reflux Disease(GERD), Hyperlipidemia, Hypertension, Seizures Denies:: Cancer, Diabetes Mellitus Type 1, MRSA *Have you ever received a pneumonia vaccine?: No *Have you received a flu vaccine this season?: No Other Medical History: Reports: Arthritis, Glaucoma. Denies: Blood Transfusion Reaction Laterality Cases: Right: Other Other Surgeries: Yes: Colonoscopy Amputation: No Fractures: No - *Social History Smoking Status: Current every day smoker Tobacco Type: cigarettes # Packs/Day (cigarettes): 1 Alcohol Intake: never *Occupational Status:: disabled Housing: [facility] *Travel in the last 8 weeks: None - Psychiatric History Pschychiatric History:: Reports:: Depression Family Hx:: Unable to obtain
== END ==
PROVIDERS: PCP Emergency Medicine; Visit Provider Clinical Nurse Specialist Family Health
DX: M51.16 Intervertebral disc disorders with radiculopathy, lumbar region (principal)
CPT/HCPCS: 99212; G0463

== ENCOUNTER 2020-12-28 13:14 | Day surgery (SDC) | payer MEDICAID, SELFPAY ==
[2020-12-28 13:45] VITALS: BP 138/63; PULSE 58; RESP 18; TEMP 36.7; O2SAT 96; BMI 31.5
[2020-12-28 15:23] VITALS: BP 165/66; PULSE 62; RESP 18; O2SAT 97
[2020-12-28 15:30] VITALS: BP 173/69; PULSE 63; RESP 18; O2SAT 97
[2020-12-28 15:46] VITALS: BP 152/78; PULSE 58; RESP 20; O2SAT 96
--- NOTE | 2020-12-28 16:06 | P.PCN_ITS ---
- Procedure Date: 12/28/20 Time: 16:06 Anesthesiologist:: Clarita Fisher MD Complications:: None Pre-procedure Diagnosis:: Disc disease of the lumbar spine, lumbar radiculopathy Post-procedure Diagnosis:: Same Indications for Procedure:: This patient is a very pleasant 60-year-old white male who presents today with chronic low back pain radiating to his legs related to the above diagnosis. He has trialed and failed conservative treatment including oral pain medications and home stretching program. He previously underwent a lumbar epidural steroid injection on 11-23-2020 with 70% pain relief for about a month before the pain returned. Today is for him to undergo lumbar epidural steroid injection at L5- S1 #2 today. Procedure Details:: Informed consent was obtained and the risk and benefits of the procedure was explained to the patient. The patient was taken to the procedure room. The patient was placed prone on the procedure table. The patient was prepped and draped in sterile fashion. C-arm fluoroscopy was used to view the lumbar spine. Skin and subcutaneous tissues were anesthetized using lidocaine. I placed an 18-gauge epidural needle and advanced into the L5-S1 interspace using fluoroscopic guidance and [id number] to air and saline. After confirmation of needle placement in the epidural space with dye I injected 1 mL of lidocaine 1.5% with Depo-Medrol 80 mg. Patient tolerated the procedure well with no complications. Plan and Disposition:: We will follow-up with this patient in 2 weeks. Will reevaluate pain symptoms at that time.
== END 2020-12-28 15:48 | disposition home or self-care (01) ==
LOC: SC.PAINP 13:16
PROVIDERS: PCP Emergency Medicine; Visit Provider Anesthesiology Pain Medicine
DX: M51.16 Intervertebral disc disorders with radiculopathy, lumbar region (principal); E78.5 Hyperlipidemia, unspecified; I10 Essential (primary) hypertension; J44.9 Chronic obstructive pulmonary disease, unspecified; K21.9 Gastro-esophageal reflux disease without esophagitis; M19.90 Unspecified osteoarthritis, unspecified site; E11.9 Type 2 diabetes mellitus without complications; F32.9 Major depressive disorder, single episode, unspecified; F03.90 Unspecified dementia, unspecified severity, without behavioral disturbance, psychotic disturbance, mood disturbance, and anxiety; R56.9 Unspecified convulsions; H40.9 Unspecified glaucoma; Z88.6 Allergy status to analgesic agent
CPT/HCPCS: 62323; J1040; Q9966

== ENCOUNTER → 2021-01-09 13:21 | Outpatient (CLI) | payer MEDICAID, SELFPAY | PROVIDERS: PCP Emergency Medicine; Visit Provider Nurse Practitioner Family | DX: G47.33 Obstructive sleep apnea (adult) (pediatric) (principal) | CPT/HCPCS: 95806; G0399 ==

== ENCOUNTER → 2021-01-21 10:56 | Outpatient (POV) | payer MEDICAID, SELFPAY ==
[2021-01-21 11:04] VITALS: BP 166/60; PULSE 62; RESP 18; O2SAT 98; BMI 31.5
--- NOTE | 2021-01-21 11:16 | HMH.PAINSOAP ---
[facility] Pain Management SOAP Note Subjective:: Patient is a 61-year-old white male who presents today for follow-up after a lumbar epidural steroid injection at L5-S1 # 2. He is being treated for degenerative disc disease lumbar spine with lumbar radiculopathy symptoms. Patient does live in an assisted living home locally. He says that he got approximately 80% relief and is continuing to get relief at this time. He does not want to undergo any further injective therapy for now. He would like to follow-up with in the clinic in 2 months for reevaluation of symptoms. His pain is a 4 out of 10 today. Review of Systems General: No recent weight changes, no fever, no sleep disturbances Respiratory: No cough, no shortness of air, no recurring pulmonary infections Cardiovascular/peripheral vascular: No chest pain, no palpitations, no edema, no shortness of breath Gastrointestinal: No new onset incontinence, normal bowel movements reported Genitourinary: No new onset incontinence Musculoskeletal: No pain at this time Psychiatric: Normal mood/affect Neurological: [Denies weakness in extremities], [denies balance issues] Objective:: Physical exam General: Alert and oriented x3, no acute distress, pleasant and cooperative, [on room air] Lungs: Respirations even and unlabored, symmetrical chest expansion Eyes: PERRL Musculoskeletal: Flexion and extension of [] spine somewhat nonguarded , deep tendon reflexes normal, strength in upper and lower extremities [5/5], normal gait noted Neurological: 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 He has been instructed to contact clinic if he has any concerns for his next appointment. Patient has been instructed to contact the clinic with any concerns before the next appointment. Dr. Villarreal has reviewed this note and agrees with this plan of care. This note was dictated using voice recognition software and make contain errors or omissions. [facility] History I have reviewed the patient's past medical history: Yes Medical History: Reports:: Chronic Obstructive Pulmonary Disease (COPD), Dementia, Depression, Diabetes Mellitus Type 2, Gastroesophageal Reflux Disease(GERD), Hyperlipidemia, Hypertension, Seizures Denies:: Cancer, Diabetes Mellitus Type 1, MRSA *Have you ever received a pneumonia vaccine?: Yes *Have you received a flu vaccine this season?: Yes Other Medical History: Reports: Arthritis, Glaucoma. Denies: Blood Transfusion Reaction Laterality Cases: Right: Other Other Surgeries: Yes: Colonoscopy Amputation: No Fractures: No - *Social History Smoking Status: Current every day smoker Tobacco Type: cigarettes # Packs/Day (cigarettes): 1 Alcohol Intake: never *Occupational Status:: unemployed Housing: house *Travel in the last 8 weeks: None - Psychiatric History Pschychiatric History:: Reports:: Depression Family Hx:: Unable to obtain
== END ==
PROVIDERS: PCP Emergency Medicine; Visit Provider Clinical Nurse Specialist Family Health
DX: M51.16 Intervertebral disc disorders with radiculopathy, lumbar region (principal)
CPT/HCPCS: 99212; G0463

== ENCOUNTER → 2021-03-25 10:46 | Outpatient (POV) | payer MEDICAID, SELFPAY ==
[2021-03-25 11:21] VITALS: BP 150/69; PULSE 65; RESP 18; O2SAT 95; BMI 29.7
--- NOTE | 2021-03-25 11:24 | HMH.PAINSOAP ---
[facility] Pain Management SOAP Note Subjective:: Patient is a 61-year-old white male who presents today for follow-up. He is being treated for degenerative disc disease lumbar spine with lumbar radiculopathy symptoms. He is a patient in a long-term care facility. He says that he gets great relief with the injections that he has had in the past, lumbar epidural steroid injection at L5-S1. He has had number 2 injections to the area. He says that he gets 100% relief at 2 to 3 months. He is having pain in his low back at this time with radiation into the right foot with numbness and tingling. His pain is a 5 out of 10 today. He would like to undergo repeat injective therapy to the area. Patient says that he is not on any anticoagulation therapy. Review of Systems General: No recent weight changes, no fever, no sleep disturbances Respiratory: No cough, no shortness of air, no recurring pulmonary infections Cardiovascular/peripheral vascular: No chest pain, no palpitations, no edema, no shortness of breath Gastrointestinal: No new onset incontinence, normal bowel movements reported Genitourinary: No new onset incontinence Musculoskeletal: Low back pain with radiation into right leg and foot with numbness and tingling Psychiatric: [Normal mood/affect] Neurological: [Denies weakness in extremities], [denies balance issues] Objective:: Physical exam General: Alert and oriented x3, no acute distress, pleasant and cooperative, [on room air] Lungs: Respirations even and unlabored, symmetrical chest expansion Eyes: PERRL Musculoskeletal: Flexion and extension of lumbar [spine] somewhat guarded secondary to pain, strength in upper and lower extremities [5/5], [antalgic gait noted] Neurological: Speech clear, [clinical supervisor equal], no gross sensory deficit Assessment:: Degenerative disc disease lumbar spine with lumbar radiculopathy symptoms Plan:: We will schedule the patient for a #3 injection at L5-S1 lumbar epidural steroid injection. Patient has tried and failed conservative therapies of physical therapy for more than 6 weeks along with continued home stretching. He is also tried anti-inflammatories with no significant relief. This will be the patient's #3 injection. He gets 100% relief for up to 3 months following the injections. We will see the patient back in the clinic after his injection for reevaluation symptoms. Patient reports he is not on any anticoagulation therapy. Possible side effects of corticosteroids have been discussed with the patient. Risks and benefits of the procedure have been explained to the patient. Patient would like to proceed with the procedure. Patient has been instructed to contact the clinic with any concerns before the next appointment. Dr. Villarreal has reviewed this note and agrees with this plan of care. This note was dictated using voice recognition software and make contain errors or omissions. Patient has been instructed to contact the clinic with any concerns before the next appointment. Dr. Villarreal has reviewed this note and agrees with this plan of care. This note was dictated using voice recognition software and make contain errors or omissions. [facility] History I have reviewed the patient's past medical history: Yes Medical History: Reports:: Chronic Obstructive Pulmonary Disease (COPD), Dementia, Depression, Diabetes Mellitus Type 2, Gastroesophageal Reflux Disease(GERD), Hyperlipidemia, Hypertension, Seizures Denies:: Cancer, Diabetes Mellitus Type 1, MRSA *Have you ever received a pneumonia vaccine?: Yes *Have you received a flu vaccine this season?: Yes Other Medical History: Reports: Arthritis, Glaucoma. Denies: Blood Transfusion Reaction Laterality Cases: Right: Other Other Surgeries: Yes: Colonoscopy Amputation: No Fractures: No - *Social History Smoking Status: Current every day smoker Tobacco Type: cigarettes # Packs/Day (cigarettes): 1 Alcohol Intake: never *Occupational Status:: unemp
== END ==
PROVIDERS: Visit Provider Clinical Nurse Specialist Family Health
DX: M51.16 Intervertebral disc disorders with radiculopathy, lumbar region (principal)
CPT/HCPCS: 99212; G0463

== ENCOUNTER 2021-04-05 08:28 | Day surgery (SDC) | payer MEDICAID, SELFPAY ==
[2021-04-05 08:36] VITALS: BP 163/64; PULSE 60; RESP 20; TEMP 36.4; O2SAT 98; BMI 31.8
[2021-04-05 09:18] VITALS: BP 177/75; PULSE 61; RESP 18; O2SAT 94
[2021-04-05 09:19] VITALS: BP 186/80; PULSE 64; RESP 18; O2SAT 96
--- NOTE | 2021-04-05 09:25 | P.PCN_ITS ---
- Procedure Date: 04/05/21 Time: 09:25 Anesthesiologist:: Steven Villarreal MD Complications:: None Pre-procedure Diagnosis:: Degenerative disc disease of lumbar spine with lumbar radiculopathy symptoms Post-procedure Diagnosis:: Same Indications for Procedure:: This patient is a pleasant 61-year-old white male who we are treating for low back pain with lumbar radiculopathy symptoms. He has increasing pain in his low back rating down his right leg. We will repeat a lumbar epidural steroid injection under fluoroscopy today. Procedure Details:: Informed consent was obtained and the risk and benefits of the procedure was explained to the patient. The patient was taken to the procedure room. The patient was placed prone on the procedure table. The patient was prepped and draped in sterile fashion. C-arm fluoroscopy was used to view the lumbar spine. Skin and subcutaneous tissues were anesthetized using lidocaine. I placed an 18-gauge epidural needle and advanced into the L4-L5 interspace using fluoroscopic guidance and [id number] to air. After confirmation of needle placement in the epidural space with dye I injected 2 mL of lidocaine 1 .5% with Depo-Medrol 80 mg. Patient tolerated the procedure well with no complications. Plan and Disposition:: We will follow-up with him in 2 weeks. Will reevaluate his symptoms at that time.
[2021-04-05 09:40] VITALS: BP 175/60; PULSE 56; RESP 20; TEMP 36.5; O2SAT 96
== END 2021-04-05 09:41 | disposition home or self-care (01) ==
LOC: SC.PAINP 08:29
PROVIDERS: PCP Emergency Medicine; Visit Provider Anesthesiology
DX: M51.16 Intervertebral disc disorders with radiculopathy, lumbar region (principal); E78.5 Hyperlipidemia, unspecified; I10 Essential (primary) hypertension; J44.9 Chronic obstructive pulmonary disease, unspecified; K21.9 Gastro-esophageal reflux disease without esophagitis; M19.90 Unspecified osteoarthritis, unspecified site; E11.9 Type 2 diabetes mellitus without complications; F32.9 Major depressive disorder, single episode, unspecified; F03.90 Unspecified dementia, unspecified severity, without behavioral disturbance, psychotic disturbance, mood disturbance, and anxiety; R56.9 Unspecified convulsions; Z72.0 Tobacco use; R01.1 Cardiac murmur, unspecified
CPT/HCPCS: 62323; J1040; Q9966

== ENCOUNTER → 2021-04-25 09:55 | Outpatient (POV) | payer MEDICAID, SELFPAY ==
[2021-04-25 10:13] VITALS: BP 159/76; PULSE 66; RESP 18; O2SAT 98; BMI 31.5
--- NOTE | 2021-04-25 12:37 | HMH.PAINSOAP ---
[facility] Pain Management SOAP Note Subjective:: Patient is a 61-year-old white male who presents today for follow-up after lumbar epidural steroid injection. Patient reports that he got excellent relief with the injection. He rates his pain a 3 out of 10. The patient was having pain in his low back and right leg. He says since the injection he is much more functional and able to walk with less pain. Overall he is doing well. Patient does routinely undergo injective therapy every 3 to 4 months to get significant relief. Review of Systems General: No recent weight changes, no fever, no sleep disturbances Respiratory: No cough, no shortness of air, no recurring pulmonary infections Cardiovascular/peripheral vascular: No chest pain, no palpitations, no edema, no shortness of breath Gastrointestinal: No new onset incontinence, normal bowel movements reported Genitourinary: No new onset incontinence Musculoskeletal: Intermittent low back pain with radiation into right leg Psychiatric: [Normal mood/affect] Neurological: [Denies weakness in extremities], [denies balance issues] Objective:: Physical exam General: Alert and oriented x3, no acute distress, pleasant and cooperative Lungs: Respirations even and unlabored, symmetrical chest expansion Eyes: PERRL Musculoskeletal: Flexion and extension of lumbar [spine] somewhat guarded secondary to pain, [antalgic gait noted] Neurological: Speech clear, no gross sensory deficit Assessment:: Degenerative disc disease lumbar spine with lumbar radiculopathy symptoms Plan:: Patient is doing well overall. We will plan to follow-up with the patient in 2 months for reevaluation symptoms. He has been instructed to contact clinic if he has any concerns for his next appointment. Patient has been instructed to contact the clinic with any concerns before the next appointment. Dr. Villarreal has reviewed this note and agrees with this plan of care. This note was dictated using voice recognition software and make contain errors or omissions. [facility] History I have reviewed the patient's past medical history: Yes Medical History: Reports:: Chronic Obstructive Pulmonary Disease (COPD), Dementia, Depression, Diabetes Mellitus Type 2, Gastroesophageal Reflux Disease(GERD), Heart Murmur, Hyperlipidemia, Hypertension Denies:: Cancer, Diabetes Mellitus Type 1, MRSA, Seizures *Have you ever received a pneumonia vaccine?: Yes *Have you received a flu vaccine this season?: Yes Other Medical History: Reports: Arthritis, Glaucoma. Denies: Blood Transfusion Reaction Laterality Cases: Right: Other Other Surgeries: Yes: Colonoscopy Amputation: No Fractures: No - *Social History Smoking Status: Current every day smoker Tobacco Type: cigarettes # Packs/Day (cigarettes): 1 Alcohol Intake: never *Occupational Status:: unemployed Housing: [facility] Household Members: other *Travel in the last 8 weeks: None - Psychiatric History Pschychiatric History:: Reports:: Depression Family Hx:: Unable to obtain
== END ==
PROVIDERS: Visit Provider Clinical Nurse Specialist Family Health
DX: M51.16 Intervertebral disc disorders with radiculopathy, lumbar region (principal)
CPT/HCPCS: 99212; G0463

== ENCOUNTER → 2021-06-24 08:22 | Outpatient (POV) | payer MEDICAID, SELFPAY ==
[2021-06-24 08:48] VITALS: BP 161/70; PULSE 70; RESP 18; O2SAT 95; BMI 31.1
--- NOTE | 2021-06-24 08:52 | HMH.PAINSOAP ---
[facility] Pain Management SOAP Note Subjective:: Patient is a 61-year-old white male who is a long-term care facility patient. He is seen in our clinic for injective therapy. Today, he is complaining of left low back pain with radiation into his left leg. He says the pain does stop at the knee. The pain worsens when he is sitting for prolonged periods. He does rate his pain an 8 out of 10 today. He has had lumbar epidural steroid injections as well as a work block/facet joint injections and RFA's. Today, the pain is acute and different in nature. He has undergone physical therapy in the past for more than 6 weeks with minimal relief. He is unable to take anti-inflammatories due to Plavix therapy. He does continue with routine therapy within the long-term care facility. Review of Systems General: No recent weight changes, no fever, no sleep disturbances Respiratory: No cough, no shortness of air, no recurring pulmonary infections Cardiovascular/peripheral vascular: No chest pain, no palpitations, no edema, no shortness of breath Gastrointestinal: No new onset incontinence, normal bowel movements reported Genitourinary: No new onset incontinence Musculoskeletal: Low back pain with radiation into left buttock, left leg stopping at knee Psychiatric: [Normal mood/affect] Neurological: [Denies weakness in extremities], [denies balance issues] Objective:: Physical exam General: Alert and oriented x3, no acute distress, pleasant and cooperative Lungs: Respirations even and unlabored, symmetrical chest expansion Eyes: PERRL Musculoskeletal: Flexion and extension of lumbar [spine] somewhat guarded secondary to pain, [antalgic gait noted], positive Vicky's test, positive Soumya's test, positive compression test, positive distraction test all left-sided Neurological: Speech clear, no gross sensory deficit Assessment:: Left sacroiliitis Plan:: Patient is tender to his left SI joint with a positive Soumya's, Vicky's, compression, distraction test on the left side. We will schedule him for left SI joint injection. He is diabetic. He is also taking Plavix therapy. We will see him back in the clinic after his injection for further evaluation. He continues with home stretching. Possible side effects of corticosteroids have been discussed with the patient. Risks and benefits of the procedure have been explained to the patient. Patient would like to proceed with the procedure. Patient has been instructed to contact the clinic with any concerns before the next appointment. Dr. Villarreal has reviewed this note and agrees with this plan of care. This note was dictated using voice recognition software and make contain errors or omissions. [facility] History I have reviewed the patient's past medical history: Yes Medical History: Reports:: Chronic Obstructive Pulmonary Disease (COPD), Dementia, Depression, Diabetes Mellitus Type 2, Gastroesophageal Reflux Disease(GERD), Heart Murmur, Hyperlipidemia, Hypertension Denies:: Cancer, Diabetes Mellitus Type 1, MRSA, Seizures *Have you ever received a pneumonia vaccine?: Yes *Have you received a flu vaccine this season?: Yes Other Medical History: Reports: Arthritis, Glaucoma. Denies: Blood Transfusion Reaction Laterality Cases: Right: Other Other Surgeries: Yes: Colonoscopy Amputation: No Fractures: No - *Social History Smoking Status: Current every day smoker Tobacco Type: cigarettes # Packs/Day (cigarettes): 1 Alcohol Intake: never *Occupational Status:: unemployed Housing: senior care Household Members: other *Travel in the last 8 weeks: None - Psychiatric History Pschychiatric History:: Reports:: Depression Family Hx:: Unable to obtain
== END ==
PROVIDERS: Visit Provider Clinical Nurse Specialist Family Health
DX: M46.1 Sacroiliitis, not elsewhere classified (principal)
CPT/HCPCS: 99212; G0463

== ENCOUNTER 2021-07-19 14:44 | Day surgery (SDC) | payer MEDICAID, SELFPAY ==
[2021-07-19 14:55] VITALS: BP 163/64; PULSE 71; RESP 20; TEMP 36.4; O2SAT 94; BMI 30.1
--- NOTE | 2021-07-19 15:05 | HMH.PMPROC ---
- Procedure Date: 07/19/21 Time: 15:05 Anesthesiologist:: Clarita Fisher MD Complications:: None Pre-procedure Diagnosis:: Left sacroiliitis, left-sided low back pain, left-sided hip pain Post-procedure Diagnosis:: Same Indications for Procedure:: Patient is a very pleasant 61-year-old white male who presents today with chronic left-sided low back and hip pain related to the above diagnosis. He has trialed and failed conservative treatment including oral pain medications and home stretching program for greater than 6 weeks. He has previously undergone lumbar epidural steroid injections as well as lumbar medial branch blocks/facet joint injections as well as RFA. Of note, the patient is on Plavix and has held it with appropriate time for this procedure today. The plan for today is for the patient to undergo a left-sided SI joint injection under fluoroscopy. Procedure Details:: Left SI joint injection under fluoroscopy Informed consent was obtained and the risks and benefits of the procedure was explained to the patient. Patient was taken to the procedure room. Patient was placed prone on the procedure table. The left hip was prepped using ChloraPrep. The skin and subcutaneous tissues were anesthetized using lidocaine. I placed a 22-gauge spinal needle into the inferior aspect of the left SI joint. Needle placement was confirmed with dye. After this we injected 5 mL bupivacaine 0.25% and Depo-Medrol 40 mg into the left SI joint. The patient tolerated the procedure well with no complication. Plan and Disposition:: We will follow-up with this patient in 2 weeks. Will reevaluate pain symptoms at that time.
[2021-07-19 15:09] VITALS: BP 180/75; PULSE 65; RESP 18; O2SAT 95
[2021-07-19 15:12] VITALS: PULSE 67; RESP 18; O2SAT 97
[2021-07-19 15:15] VITALS: BP 168/67; PULSE 74; RESP 18; O2SAT 92
== END 2021-07-19 15:14 | disposition home or self-care (01) ==
LOC: SC.PAINP 14:45
PROVIDERS: PCP Emergency Medicine; Visit Provider Anesthesiology Pain Medicine
DX: M46.1 Sacroiliitis, not elsewhere classified (principal); M54.59 Other low back pain
CPT/HCPCS: 27096; G0260; J1040; Q9966

== ENCOUNTER → 2021-07-26 01:19 | Outpatient (CLI) | payer MEDICAID, SELFPAY ==
[2021-07-26 02:41] LABS: Chloride 109 mmol/L (98-107); Potassium 5.2 mmoL/L (3.5-5.1); Sodium 137 mmol/L (136-145)
[2021-07-26 02:43] LABS: Blood Urea Nitrogen 44 mg/dl (9-20); Estimated Glomerular Filt Rate 51 ml/min (>60); GFR (African American) 62 ML/MIN (>60)
[2021-07-26 02:44] LABS: Anion Gap 10.2 mEq/L (5-15); Calcium 8.5 mg/dl (8.4-10.2); Carbon Dioxide 23 mmol/L (22.0-30.0); Glucose 131 mg/dl (74-100)
== END ==
PROVIDERS: Visit Provider Emergency Medicine
DX: E86.0 Dehydration (principal)
CPT/HCPCS: 80048

== ENCOUNTER → 2021-08-26 10:18 | Outpatient (POV) | payer MEDICAID, SELFPAY ==
[2021-08-26 10:49] VITALS: BP 106/66; PULSE 60; RESP 18; O2SAT 96; BMI 30.1
--- NOTE | 2021-08-26 13:46 | P.CONS_ITS ---
[facility] Pain Management SOAP Note Subjective:: Patient is a very pleasant 61-year-old white male who presents today for follow- up. He has currently been treated for sided sacroiliitis. He has previously undergone left-sided SI joint injections in the past as well as lumbar epidural steroid injections and lumbar medial branch blocks/facet joint injections and RFA. He states that he is very satisfied with the last SI joint injection and continues to experience pain relief with this injection. His biggest pain complaint today is his low back pain which she states radiates from his low back. He describes the pain as a sharp shooting pain with associated numbness and tingling. He notes no weakness in his legs related to the pain. He has previously undergone epidural steroid injections in the past with adequate pain relief. He has not had a recent lumbar MRI in the past 2 years. He rates his pain today as 8 out of 10. He is requesting injection therapy to help with his pain. Objective:: General: Alert and oriented x3, no acute distress, pleasant and cooperative Lungs: Resps E/U, symmetric chest expansion Eyes: PERRL Musculoskeletal: limited flexion and extension of the lumbar spine secondary to pain. Deep tendon reflexes were normal in bilateral lower extremities. Motor exam was grossly intact in the bilateral lower extremities, antalgic gait noted. Positive straight leg raise on the right Neurological: Speech is clear, automatic nailing machine feeder equal, no gross sensory deficits Assessment:: Degenerative disease of lumbar spine with lumbar radiculopathy Left-sided sacroiliitis Plan:: I discussed with the patient that order MRI of the lumbar spine for further evaluation. I believe he may benefit from a lumbar epidural injection in the future however we will first review imaging before discussing the treatment plan. Follow-up with this patient in 1 month for reassessment of his chronic pain symptoms and to further discuss his treatment plan and imaging results. [facility] #[id number] was reviewed and appropriate. ORT was performed on this patient today and the patient was deemed low risk. [facility] History Medical History: Reports:: Chronic Obstructive Pulmonary Disease (COPD), Dementia, Depression, Diabetes Mellitus Type 2, Gastroesophageal Reflux Disease(GERD), Heart Murmur, Hyperlipidemia, Hypertension Denies:: Cancer, Diabetes Mellitus Type 1, MRSA, Seizures *Have you ever received a pneumonia vaccine?: Yes *Have you received a flu vaccine this season?: Yes Other Medical History: Reports: Arthritis, Glaucoma. Denies: Blood Transfusion Reaction Laterality Cases: Right: Other Other Surgeries: Yes: Colonoscopy Amputation: No Fractures: No - *Social History Smoking Status: Current some day smoker Tobacco Type: cigarettes # Packs/Day (cigarettes): 1 Alcohol Intake: never *Occupational Status:: disabled Housing: snf Household Members: other *Travel in the last 8 weeks: None - Psychiatric History Pschychiatric History:: Reports:: Depression Family Hx:: Other
== END ==
PROVIDERS: Visit Provider Anesthesiology Pain Medicine
DX: M51.16 Intervertebral disc disorders with radiculopathy, lumbar region (principal); M46.1 Sacroiliitis, not elsewhere classified
CPT/HCPCS: 99212; G0463

== ENCOUNTER → 2021-08-29 13:31 | Outpatient (CLI) | payer MEDICAID, SELFPAY ==
--- NOTE | 2021-08-29 13:35 | MR_ITS ---
FINAL REPORT CLINICAL HISTORY: BACK PAIN. lbp worse on rt side. rt leg pain, numbness AND TINGLING X5-6YRS. FINDINGS: Multiplanar MR imaging of the lumbar spine was performed without contrast. On the sagittal T2-weighted images, there is abnormal decreased signal throughout the lumbar discs. There is a prominent S1 and S2 disc. The vertebrae are of normal height. The vertebral alignment is normal. L2-3: There is no significant canal stenosis or neural foraminal narrowing. L3-4: Mild diffuse disc bulge is present with mild bilateral neural foraminal narrowing. L4-5: Mild diffuse disc bulge is present with mild bilateral neural foraminal narrowing. L5-S1: Mild diffuse disc bulge is present with mild bilateral neural foraminal narrowing. IMPRESSION: Diffuse disc bulges at L3-4, L4-5, and L5-S1 with mild bilateral neural foraminal narrowing. Reviewed, Interpreted and Dictated by Jorgito Gutierrez MD Transcribed by Bekah Lizarraga Authenticated by Jorgito Gutierrez MD on 08/29/2021 03:59:07 PM [facility]
== END ==
PROVIDERS: PCP Emergency Medicine; Visit Provider Anesthesiology Pain Medicine
DX: M54.50 Low back pain, unspecified (principal)
CPT/HCPCS: 72148; 76376

== ENCOUNTER → 2021-09-03 16:42 | Outpatient (CLI) | payer MEDICAID, SELFPAY ==
[2021-09-03 19:02] LABS: Adenovirus,PCR Not Detected (NotDetected); Bordetella Pertussis Not Detected (NotDetected); Chlamydophila Pneumoniae, PCR Not Detected (NotDetected); Coronavirus 229E Not Detected (NotDetected); Coronavirus NL63 Not Detected (NotDetected); Coronavirus OC43 Not Detected (NotDetected); Coronovirus HKU1,PCR Not Detected (NotDetected); Human Metapneumovirus Not Detected (NotDetected); Influenza A, PCR Not Detected (NotDetected); Influenza AH1, 2009 Not Detected (NotDetected); Influenza AH1, PCR Not Detected (NotDetected); Influenza AH3,PCR Not Detected (NotDetected); Influenza B, PCR Not Detected (NotDetected); Mycoplasma Pneumoniae, PCR Not Detected (NotDetected); Parainfluenza 1, PCR Not Detected (NotDetected); Parainfluenza 2, PCR Not Detected (NotDetected); Parainfluenza 3, PCR Not Detected (NotDetected); Parainfluenza 4, PCR Not Detected (NotDetected); Respiratory Syncytial Virus Not Detected (NotDetected)
[2021-09-03 19:52] LABS: Basophils # 0.1 K/mm3 (0-0.2); Basophils % 1.1 % (0.1-2.0); Eosinophils # 0.5 K/mm3 (0.0-0.4); Eosinophils % 5.3 % (0.1-12.0); Hematocrit 34.7 % (42.0-52.0); Hemoglobin 11.5 g/dL (14.1-18.0); Lymphocytes # 2.4 K/mm3 (0.7-4.5); Lymphocytes % 26.3 % (10-50); Mean Corpuscular HGB Conc 33.2 g/dL (31.8-35.4); Mean Corpuscular Hemoglobin 30.6 pg (27.0-31.2); Mean Corpuscular Volume 92.4 fl (80-94); Mean Platelet Volume 8.6 fl (7.4-10.4); Monocytes # 0.7 K/mm3 (0.1-1.0); Monocytes % 8.1 % (1.7-9.3); Neutrophils # 5.4 K/mm3 (1.8-7.8); Neutrophils % 59.2 % (37.0-80.0); Platelet Count 244 K/mm3 (142-424); Red Blood Count 3.76 M/mm3 (4.60-6.20); Red Cell Distribution Width 14.3 % (11.5-17.5); White Blood Count 9.1 K/mm3 (4.8-10.8)
[2021-09-03 20:37] LABS: Rhinovirus/Enterovirus Detected (NotDetected)
== END ==
PROVIDERS: Visit Provider Emergency Medicine
DX: Z20.822 Contact with and (suspected) exposure to COVID-19 (principal); B34.1 Enterovirus infection, unspecified
CPT/HCPCS: 85025; 87486; 87581; 87632; 87798

== ENCOUNTER → 2021-09-23 10:03 | Outpatient (POV) | payer MEDICAID, SELFPAY ==
[2021-09-23 10:52] VITALS: BP 136/63; PULSE 65; RESP 18; TEMP 36.5; O2SAT 95; BMI 30.1
--- NOTE | 2021-09-23 12:34 | P.CONS_ITS ---
[facility] Pain Management SOAP Note Subjective:: Patient is a pleasant 62-year-old male who presents today for follow-up. Patient currently resides at an assisted nursing facility. Patient is currently being treated for degenerative disc disease of lumbar spine with lumbar radiculopathy symptoms, left-sided sacroiliitis, lumbar facet arthropathy, lumbar spondylosis. Patient is currently being treated with Flexeril 10 mg, ibuprofen, gabapentin, Percocet 10 mg 4 times a day. We had previously done SI injections and lumbar epidural steroid injection in the past provided significant relief. He states that he had 6 months of relief after his last lumbar epidural steroid injection. Today, he has been having worsening low back pain that radiates to his bilateral legs. He states that he may need another epidural steroid injection. He rates his pain today as 8 out of 10 General: No recent weight changes, no fever, no sleep disturbances Respiratory: No cough, no shortness of air, no recurring pulmonary infections Cardiovascular/peripheral vascular: No chest pain, no palpitations, no edema, no shortness of breath Gastrointestinal: No new onset incontinence, normal bowel movements reported Genitourinary: No new onset incontinence Musculoskeletal: Low back pain Psychiatric: [Normal mood/affect] Neurological: [Denies weakness in extremities], [denies balance issues] Objective:: General: Alert and oriented x3, no acute distress, pleasant and cooperative, [on room air] Lungs: Respirations even and unlabored, symmetrical chest expansion Eyes: PERRL Musculoskeletal: Flexion and extension of the lumbar [spine] somewhat guarded secondary to pain Neurological: Speech clear, no gross sensory deficit Assessment:: Degenerative disc disease of the lumbar spine with lumbar radiculopathy symptoms, lumbar facet arthropathy, lumbar spondylosis, sacroiliitis Plan:: Patient has been having worsening low back pain the last couple of weeks. He has had significant relief after a lumbar epidural steroid injection that lasted for about 6 months. We will schedule the patient for a repeat lumbar epidural steroid injection. Risks and benefits of the procedure have been explained to the patient. Patient would like to proceed with the procedure. Patient is not any blood thinners. He has diabetes and will need to monitor his sugars during the injection. Patient has been instructed to contact the clinic with any concerns before the next appointment. Dr. Villarreal has reviewed this note and agrees with this plan of care. This note was dictated using voice recognition software and make contain errors or omissions. [facility] History Medical History: Reports:: Chronic Obstructive Pulmonary Disease (COPD), Dementia, Depression, Diabetes Mellitus Type 2, Gastroesophageal Reflux Disease(GERD), Heart Murmur, Hyperlipidemia, Hypertension Denies:: Cancer, Diabetes Mellitus Type 1, MRSA, Seizures *Have you ever received a pneumonia vaccine?: Yes *Have you received a flu vaccine this season?: Yes Other Medical History: Reports: Arthritis, Glaucoma. Denies: Blood Transfusion Reaction Laterality Cases: Right: Other Other Surgeries: Yes: Colonoscopy Amputation: No Fractures: No - *Social History Smoking Status: Current some day smoker Tobacco Type: cigarettes # Packs/Day (cigarettes): 1 Alcohol Intake: never *Occupational Status:: disabled Housing: senior care Household Members: other *Travel in the last 8 weeks: None - Psychiatric History Pschychiatric History:: Reports:: Depression Family Hx:: Other
== END ==
PROVIDERS: Visit Provider Student in an Organized Health Care Education/Training Program
DX: M51.16 Intervertebral disc disorders with radiculopathy, lumbar region (principal); M54.06 Panniculitis affecting regions of neck and back, lumbar region; M47.896 Other spondylosis, lumbar region; M46.1 Sacroiliitis, not elsewhere classified
CPT/HCPCS: 99212; G0463

== ENCOUNTER 2021-10-04 10:21 | Day surgery (SDC) | payer MEDICAID, SELFPAY ==
[2021-10-04 11:01] VITALS: BP 128/56; BP 157/73; PULSE 56; PULSE 57; RESP 16; RESP 20; TEMP 36.4; O2SAT 94; O2SAT 97; BMI 30.1
[2021-10-04 11:50] VITALS: BP 156/72; PULSE 54; RESP 18; O2SAT 94
[2021-10-04 11:57] VITALS: BP 146/72; PULSE 56; RESP 18; O2SAT 95
--- NOTE | 2021-10-04 13:16 | HMH.PMPROC ---
- Procedure Date: 10/04/21 Time: 13:16 Anesthesiologist:: Steven Villarreal MD Complications:: None Pre-procedure Diagnosis:: Degenerative disc disease of lumbar spine with lumbar radiculopathy symptoms Post-procedure Diagnosis:: Same Indications for Procedure:: Patient is a pleasant 61-year-old white male who we are treating for low back pain with lumbar radiculopathy symptoms. He has increasing pain in his back down both legs. He has done well with previous SI joint injections and lumbar pleural steroid injections in the past. He has gotten over 6 months of pain relief. Pain is now returned. Will do repeat lumbar epidural steroid injection today to see if this helps with his pain symptoms. Procedure Details:: Informed consent was obtained and the risk and benefits of the procedure was explained to the patient. The patient was taken to the procedure room. The patient was placed prone on the procedure table. The patient was prepped and draped in sterile fashion. C-arm fluoroscopy was used to view the lumbar spine. Skin and subcutaneous tissues were anesthetized using lidocaine. I placed an 18-gauge epidural needle and advanced into the L4-L5 interspace using fluoroscopic guidance and [id number] to air. After confirmation of needle placement in the epidural space with dye I injected 2 mL of lidocaine 1.5% with Depo-Medrol 80 mg. Patient tolerated the procedure well with no complications. Plan and Disposition:: We will follow-up with him in 2 weeks. Will reevaluate symptoms at that time.
== END 2021-10-04 12:06 | disposition home or self-care (01) ==
LOC: SC.PAINP 10:21
PROVIDERS: PCP Emergency Medicine; Visit Provider Anesthesiology
DX: M51.16 Intervertebral disc disorders with radiculopathy, lumbar region (principal); J44.9 Chronic obstructive pulmonary disease, unspecified; F32.A Depression, unspecified; E11.9 Type 2 diabetes mellitus without complications; K21.9 Gastro-esophageal reflux disease without esophagitis; E78.5 Hyperlipidemia, unspecified; I10 Essential (primary) hypertension; F03.90 Unspecified dementia, unspecified severity, without behavioral disturbance, psychotic disturbance, mood disturbance, and anxiety; R01.1 Cardiac murmur, unspecified; M19.90 Unspecified osteoarthritis, unspecified site; Z72.0 Tobacco use; Z88.6 Allergy status to analgesic agent
CPT/HCPCS: 62323; J1040; Q9966

== ENCOUNTER → 2021-10-31 10:24 | Outpatient (POV) | payer MEDICAID, SELFPAY ==
[2021-10-31 10:40] VITALS: BP 136/55; PULSE 61; RESP 18; TEMP 36.5; O2SAT 94; BMI 30.1
--- NOTE | 2021-10-31 12:43 | P.CONS_ITS ---
[facility] Pain Management SOAP Note Subjective:: Patient is a pleasant 62-year-old male who presents today for follow-up after a lumbar epidural steroid injection on October 04, 2021. Patient is currently being treated for degenerative disc disease of lumbar spine with lumbar radiculopathy symptoms. After procedure, patient had significant relief about 80 to 90%. He rates his pain today as 3 out of 10. We have been managing this patient with injective therapy. He also previously had SI injections that helped significantly. Lives at a care facility where he is prescribed Flexeril 10 mg, ibuprofen, gabapentin, Percocet 10 mg 4 times a day. Denies any side effects from these medications. [facility] [place] #[id number]. Review of Systems: General: No recent weight changes, no fever, no sleep disturbances Respiratory: No cough, no shortness of air, no recurring pulmonary infections Cardiovascular/peripheral vascular: No chest pain, no palpitations, no edema, no shortness of breath Gastrointestinal: No new onset incontinence, normal bowel movements reported Genitourinary: No new onset incontinence Musculoskeletal: Low back pain Psychiatric: [Normal mood/affect] Neurological: [Denies weakness in extremities], [denies balance issues] Objective:: Physical Exam: General: Alert and oriented x3, no acute distress, pleasant and cooperative, [on room air] Lungs: Respirations even and unlabored, symmetrical chest expansion Eyes: PERRL Musculoskeletal: Flexion and extension of lumbar [spine] somewhat guarded second anne-marie to pain, [antalgic gait noted] Neurological: Speech clear, no gross sensory deficit Assessment:: Degenerative disc disease of lumbar spine with lumbar radiculopathy symptoms, bilateral sacroiliitis Plan:: Patient continues to have significant relief after his lumbar epidural steroid injection. Rates his pain as 3 out of 10 today. We will follow-up with this patient 3 months for evaluation of chronic pain syndrome and to see if he needs a repeat lumbar epidural steroid injection. Patient has been instructed to contact the clinic with any concerns before the next appointment. Dr. Villarreal has reviewed this note and agrees with this plan of care. This note was dictated using voice recognition software and make contain errors or omissions. [facility] History Medical History: Reports:: Chronic Obstructive Pulmonary Disease (COPD), Dementia, Depression, Diabetes Mellitus Type 2, Gastroesophageal Reflux Disease(GERD), Heart Murmur, Hyperlipidemia, Hypertension Denies:: Cancer, Diabetes Mellitus Type 1, MRSA, Seizures *Have you ever received a pneumonia vaccine?: Yes *Have you received a flu vaccine this season?: Yes Other Medical History: Reports: Arthritis, Glaucoma. Denies: Blood Transfusion Reaction Laterality Cases: Right: Other Other Surgeries: Yes: Colonoscopy Amputation: No Fractures: No - *Social History Smoking Status: Current every day smoker Tobacco Type: cigarettes # Packs/Day (cigarettes): 1 Alcohol Intake: never *Occupational Status:: unemployed Housing: residential Household Members: other *Travel in the last 8 weeks: None - Psychiatric History Pschychiatric History:: Reports:: Depression Family Hx:: No significant family history
== END ==
PROVIDERS: Visit Provider Student in an Organized Health Care Education/Training Program
DX: M51.16 Intervertebral disc disorders with radiculopathy, lumbar region (principal); M46.1 Sacroiliitis, not elsewhere classified
CPT/HCPCS: 99212; G0463

== ENCOUNTER → 2021-12-05 12:58 | Outpatient (CLI) | payer MEDICAID, SELFPAY ==
[2021-12-05 13:30] VITALS: BP 102/62; BP 120/60; PULSE 61; PULSE 72; RESP 16; O2SAT 96
--- NOTE | 2021-12-05 13:50 | CT_ITS ---
FINAL REPORT CLINICAL HISTORY: 62-year-old male, current smoker with 15 pack-year history FINDINGS: Axial images were obtained from the lung apex to the mid abdomen by computed tomography. Low-dose protocol was utilized. CTDl vol(mGy): 2.7 DLP (mGy-cm): 86.2 FINDINGS: There is no axillary adenopathy. There is no hilar or mediastinal adenopathy. The heart size is normal. There is no pericardial or pleural effusion. There is mild diffuse bronchial wall thickening which may represent bronchitis. There is mild emphysema and mild scarring. There are several less than 5 mm pulmonary nodules. There are 2 adjacent right lower lobe nodules. The largest measures up to 4 mm and is well seen on image 277. A lateral left lower lobe nodule measures 3 mm and is well seen on image 290. There is no dominant mass or nodule. IMPRESSION: Lung RADS category 2. Recommend 12 month follow-up low-dose chest CT. Reviewed, Interpreted and Dictated by Reza Munoz III, MD Transcribed by Jaylene Walsh Authenticated and [facility]
== END ==
PROVIDERS: PCP Emergency Medicine; Visit Provider Internal Medicine Pulmonary Disease
DX: Z87.891 Personal history of nicotine dependence (principal); Z12.2 Encounter for screening for malignant neoplasm of respiratory organs; R06.09 Other forms of dyspnea
CPT/HCPCS: 71271; 94060; 94618; 94640; 94726; 94729

== ENCOUNTER → 2022-01-30 10:45 | Outpatient (POV) | payer MEDICAID, SELFPAY ==
[2022-01-30 10:58] VITALS: BP 142/62; PULSE 64; RESP 20; TEMP 36.6; O2SAT 97; BMI 30.1
--- NOTE | 2022-01-30 11:12 | HMH.PAINSOAP ---
[facility] Pain Management SOAP Note Subjective:: Patient is a pleasant 62-year-old male who presents today for follow-up. We are currently treating the patient for degenerative disc disease of lumbar spine with lumbar radiculopathy symptoms, bilateral sacroiliitis. Today he rates his pain an 8 out of 10. He states the pain is a sharp constant sensation in his low back that radiates down his right leg to his foot. Patient denies any new trauma or injuries. He denies any change the location or type of pain he experiences. We have done injections in the past for this patient with significant relief. He has had a lumbar epidural steroid injection that gave about 80 to 90% relief. He would like to see about scheduling for a repeat injection at today's visit. He currently is living at a intermediate facility where he is prescribed Flexeril 10 mg, ibuprofen, gabapentin, Percocet 10 mg 4 times a day. He denies any side effects from these medications. He states these medications do help manage his pain. His Kyler is [phone]. It has been reviewed and is appropriate. Review of Systems: General: No recent weight changes, no fever, no sleep disturbances Respiratory: No cough, no shortness of air, no recurring pulmonary infections Cardiovascular/peripheral vascular: No chest pain, no palpitations, no edema, no shortness of breath Gastrointestinal: No new onset incontinence, normal bowel movements reported Genitourinary: No new onset incontinence Musculoskeletal: Low back pain right leg pain Psychiatric: [Normal mood/affect] Neurological: [Denies weakness in extremities], [denies balance issues] Objective:: Physical Exam: General: Alert and oriented x3, no acute distress, pleasant and cooperative Lungs: Respirations even and unlabored, symmetrical chest expansion Eyes: PERRL Musculoskeletal: Flexion and extension of lumbar [spine] somewhat guarded secondary to pain, [antalgic gait noted] Neurological: Speech clear, no gross sensory deficit Assessment:: Degenerative disc disease of lumbar spine with lumbar radiculopathy symptoms, bilateral sacroiliitis Plan:: Patient has had significant relief in the past from a lumbar epidural steroid injection. I have discussed with the patient at today's visit regarding a transforaminal epidural injection since his pain is only on his right side. Risk and benefits were discussed with the patient. He would like to proceed forward with this injection. This patient is a diabetic on insulin therapy. He does not currently take any blood thinners. We will schedule him for a right transforaminal epidural steroid injection at L4, L5. Patient has been instructed to contact the clinic with any concerns before the next appointment. Dr. Villarreal has reviewed this note and agrees with this plan of care. This note was dictated using voice recognition software and make contain errors or omissions. [facility] History I have reviewed the patient's past medical history: Yes Medical History: Reports:: Chronic Obstructive Pulmonary Disease (COPD), Dementia, Depression, Diabetes Mellitus Type 2, Gastroesophageal Reflux Disease(GERD), Heart Murmur, Hyperlipidemia, Hypertension Denies:: Cancer, Diabetes Mellitus Type 1, MRSA, Seizures *Have you ever received a pneumonia vaccine?: Yes *Have you received a flu vaccine this season?: Yes Other Medical History: Reports: Arthritis, Glaucoma. Denies: Blood Transfusion Reaction Laterality Cases: Right: Other Other Surgeries: Yes: Colonoscopy Amputation: No Fractures: No - *Social History Smoking Status: Current every day smoker Tobacco Type: cigarettes # Packs/Day (cigarettes): 1 Alcohol Intake: never *Occupational Status:: other Housing: intermediate Household Members: other *Travel in the last 8 weeks: None - Psychiatric History Pschychiatric History:: Reports:: Depression Family Hx:: No significant family history
== END ==
PROVIDERS: Visit Provider Student in an Organized Health Care Education/Training Program
DX: M51.16 Intervertebral disc disorders with radiculopathy, lumbar region (principal); M46.1 Sacroiliitis, not elsewhere classified
CPT/HCPCS: 99212; G0463

== ENCOUNTER 2022-02-14 08:45 | Day surgery (SDC) | payer MEDICAID, SELFPAY ==
[2022-02-14 09:02] VITALS: BP 148/63; PULSE 72; TEMP 36.7; O2SAT 96; BMI 30.1
[2022-02-14 09:37] VITALS: BP 150/65; PULSE 67; RESP 20; O2SAT 95
--- NOTE | 2022-02-14 10:56 | P.PCN_ITS ---
- Procedure Date: 02/14/22 Time: 10:56 Anesthesiologist:: Nomi Navarro CRNA Complications:: None Pre-procedure Diagnosis:: Degenerative disc disease lumbar spine multilevels. Foraminal stenosis L4 and L5. Disc bulge multilevel lumbar spine. Lumbar radiculopathy symptoms. Post-procedure Diagnosis:: Same Indications for Procedure:: This patient is a very pleasant 62-year-old male who comes our clinic today for a left L4 and L5 transforaminal epidural steroid injection. Patient has had this particular injection in the past with significant improvement terms of his left hip and leg radicular symptoms. He rates his pain 6/10. Procedure Details:: Details of the procedure were explained to the patient. The patient was taken the procedure room placed in the prone position on the fluoroscopy table. The area over the lumbar spine was cleaned using chlorhexidine as a cleansing solution. Using fluoroscopy guidance markers were placed over the left lateral border of the vertebral body at L4 and L5. The skin and subcutaneous tissue was anesthetized using 1% lidocaine and a 25-gauge needle. At this time using a 22- gauge 3 and half inch spinal needle the upper one third of the L4-5 foramen was accessed without difficulty. The same procedure was done at the L5-S1 foramen. Needle position was confirmed in the lateral view. After negative aspiration 1 cc of 1% lidocaine and 20 mg of Depo-Medrol was injected. [place] were removed. Band-Aid applied. Patient tolerated procedure without difficulty. There were no complications. Plan and Disposition:: Patient was discharged without incident.
== END 2022-02-14 09:38 | disposition home or self-care (01) ==
LOC: SC.PAINP 08:46
PROVIDERS: PCP Emergency Medicine; Visit Provider Nurse Anesthetist, Certified Registered
DX: M51.16 Intervertebral disc disorders with radiculopathy, lumbar region (principal); M48.061 Spinal stenosis, lumbar region without neurogenic claudication
CPT/HCPCS: 64483; 64484; J1040

== ENCOUNTER → 2022-03-03 09:53 | Outpatient (POV) | payer MEDICAID, SELFPAY ==
[2022-03-03 10:01] VITALS: BP 154/65; PULSE 57; RESP 18; TEMP 36.6; O2SAT 96; BMI 30.1
--- NOTE | 2022-03-03 10:13 | EXP.PAIN.SOA ---
[place] Pain Management SOAP Note Subjective:: Patient is a pleasant 62-year-old male who presents today for follow-up of left L4 and L5 transforaminal epidural injection on 02/14/2022. We are currently treating the patient for degenerative disc disease of lumbar spine with lumbar radiculopathy symptoms, bilateral sacroiliitis, foraminal stenosis L4-L5, disc bulge multilevel lumbar spine. Patient states he has had significant improvements in his pain symptoms since having this injection. He rates it as a 60% relief and states he feels like it is still providing significant help. Patient rates his pain today a 3 out of 10. He states the pain is in his low back and describes it as a aching station. Patient denies any new trauma or injury to the site. Patient denies any change to the location or type of pain he experiences. Patient does states that this pain is very tolerable. We have done injections in the past that have provided significant relief for this patient including a lumbar epidural steroid injection. Patient does reside at a [facility] facility where he is prescribed Flexeril 10 mg, ibuprofen, gabapentin, Percocet 10 mg 4 times a day. He denies any side effects from these medications. He states these medications do help manage his pain. His Kyler is [phone]. Its been reviewed and appropriate. Review of Systems: General: No recent weight changes, no fever, no sleep disturbances Respiratory: No cough, no shortness of air, no recurring pulmonary infections Cardiovascular/peripheral vascular: No chest pain, no palpitations, no edema, no shortness of breath Gastrointestinal: No new onset incontinence, normal bowel movements reported Genitourinary: No new onset incontinence Musculoskeletal: Low back pain Psychiatric: [Normal mood/affect] Neurological: [Denies weakness in extremities], [denies balance issues] Objective:: Physical Exam: General: Alert and oriented x3, no acute distress, pleasant and cooperative Lungs: Respirations even and unlabored, symmetrical chest expansion Eyes: PERRL Musculoskeletal: Flexion and extension of lumbar [spine] somewhat guarded secondary to pain, [antalgic gait noted] Neurological: Speech clear, no gross sensory deficit Assessment:: Degenerative disc disease of lumbar spine multilevels with lumbar radiculopathy symptoms, foraminal stenosis L4-L5, disc bulge multilevel lumbar spine, bilateral sacroiliitis Plan:: Patient has had significant improvement in his pain symptoms following this right transforaminal epidural injection. At this time the patient is not needing any additional injective therapy. I have discussed with the patient that in the future we may review doing a repeat transforaminal epidural injection. We will schedule the patient for a 1 month follow-up. Patient will return to clinic in 1 month for follow-up and reevaluation of symptoms. Patient has been instructed to contact the clinic with any concerns before the next appointment. Dr. Villarreal has reviewed this note and agrees with this plan of care. This note was dictated using voice recognition software and make contain errors or omissions. [facility] Medical History (Updated 10/08/20 @ 13:04 by Sommer West APRN) Back pain COPD (chronic obstructive pulmonary disease) Dementia Diabetes mellitus Diabetes mellitus with diabetic neuropathy Glaucoma Patient's noncompliance with dietary regimen Seizure Social History Smoking Status: Current every day smoker tobacco type: cigarettes packs per day: 1 alcohol intake: never current occupational status: unemployed Travel in the last 8 weeks: None household members: other housing: [facility] current occupational exposures/hazards: No caffeine: Yes
== END ==
PROVIDERS: Visit Provider Nurse Practitioner Family
DX: M51.16 Intervertebral disc disorders with radiculopathy, lumbar region (principal); M48.061 Spinal stenosis, lumbar region without neurogenic claudication; M46.1 Sacroiliitis, not elsewhere classified
CPT/HCPCS: 99212; G0463

== ENCOUNTER → 2022-04-01 06:52 | Outpatient (CLI) | payer MEDICAID, SELFPAY ==
--- NOTE | 2022-04-01 06:53 | CA_ITS ---
APPROVED REPORT EXAM: Comprehensive 2D, Doppler, and color-flow Echocardiogram Credentialing Analyst: Kourtney Arriaga RVT Ht: 5 ft 3 in Wt: 170lbs BSA: 1.80 BP: 152/68 mmHg Indications: ABN EKG,NSTEMI,SMOKER,COPD,HTN,HLD,DEMENTIA,FATIGUE 2D Dimensions LVOT 1.93 cm (M/F) 1.5-2.5 LA Volume 24.20 mL LA Volume Index 13.44 mL/m2 (M/F) 16-34 M-Mode Dimensions RVDd 2.17 cm (0.9-2.6) LA Diam 3.71 cm (1.9-4.0) LVDd 4.62 cm (3.5-5.7) Ao Diam 2.74 cm (2.0-3.7) LVDs 3.01 cm (3.5-5.7) IVSd 1.41 cm (0.6-1.1) PWd 1.41 cm (0.6-1.1) EF (Teich) 64.10% FS 34.80% EDV (Teich) 98.30 mL TAPSE 2.09 (<1.7) ESV (Teich) 35.30 mL LV Diastology E Decel Time 210.00 (160-240 msec) E/A Ratio 1.2 MED E' 8.70 (< 7 cm/sec) E'/MED E' Ratio 11.21 (>14) LAT E' 6.70 (<10 cm/sec) E/LAT E' Ratio 14.55 (>14) Aortic Valve AO Peak GR. 5.60 mmHg Mitral Valve MV E Max Chai. 98.00 (40-130 cm/s) MV A Velocity 83.00 (40-130 cm/s) E/A Ratio 1.18 MV Decel. Time 210.00 (160-240 ms) MV PHT 62.00 ms Pulmonary Valve PV Peak Velocity 69.00 (50-150 cm/s) Left Ventricle Left atrium is mildly enlarged, left ventricle is normal size, mild concentric left ventricular hypertrophy, estimated ejection fraction 50%, there is mild inferior basal wall hypokinesis. Grade 1 diastolic dysfunction seen without tissue Doppler evidence of raise left atrial pressure. Right Ventricle Right atrium and right ventricle are normal size and contractility. Aortic Valve Aortic valve is minimally thickened and fibrosed there is no aortic stenosis or aortic insufficiency. Mitral Valve Mitral valve grossly normal, there is mild mitral regurgitation. Tricuspid Valve Tricuspid valve grossly normal, there is trace tricuspid regurgitation, tricuspid regurgitation jet velocity is inadequate for calculation of the right ventricular systolic pressure. Pulmonic Valve Pulmonic valve is poorly visualized. Great Vessels Aortic root is normal size. Inferior vena cava is normal 7 normal inspiratory collapse. Pericardium No significant pericardial effusion noted. Conclusion 1. Mildly enlarged left atrium, normal left ventricular size, mild concentric left ventricular hypertrophy, estimated ejection fraction 50% with segmental wall motion abnormality described above, grade 1 diastolic dysfunction seen without tissue Doppler evidence of raise left atrial pressure. 2. Mild mitral and trace tricuspid regurgitation. 3. No significant pericardial effusion. 4. Inferior vena cava is normal size with normal inspiratory collapse. Electronically signed by : Tony Horton MD 04/02/2022 07:06:09
--- NOTE | 2022-04-01 06:53 | CA_ITS ---
FINAL REPORT CLINICAL HISTORY: carotid bruit, Dementia, STEMI FINDINGS: RIGHT CAROTID: CCA PSV 42 cm/sec ICA PSV 111 cm/sec ICA/CCA PSV ratio 2.6 Comments: Mild plaque disease is noted. LEFTCAROTID: CCA PSV 53 cm/sec ICA PSV 108 cm/sec ICA/CCA PSV ratio 2.0 Comments: Mild plaque disease is noted. Antegrade flow is seen within the vertebral arteries. IMPRESSION: No evidence of hemodynamically significant stenosis. Reviewed, Interpreted and Dictated by Yovani Mcclendon MD Transcribed by Bekah Lizarraga Authenticated and [facility]
--- NOTE | 2022-04-01 06:53 | NM_ITS ---
APPROVED REPORT Exam: Nuclear Stress Test Indication: Hx of CA, HTN, DM, High cholesterol, Tobacco use, Family history, Abnormal EKG, Dizziness Patient Location: Outpatient Stress Tech: Herminia Sosa NM Tech:oJlie Headley, ARRT, RT (R)(N) Ht: 5 ft 3 in Wt: 170 lbs HR: 52 bpm BP: 141/68 mmHg BSA: 1.80 m2 TID: 1.22 BMI: 30.1 History: Hx of CA, HTN, DM, High cholesterol, Tobacco use, Family history, Abnormal EKG, Dizziness Procedure: Patient received a 0.4 mg of intravenous Lexiscan, resting heart rate 52 bpm, resting blood pressure 141/68 mmHg, with Lexiscan maximum heart rate achived was 71 bpm which is Less than 85 % of the maximum predicted heart rate and blood pressure was 141/68 mmHg. With Lexiscan, patient denied any complaint of chest pain. Electrocardiogram Electrocardiogram shows sinus bradycardia right bundle branch block, with Lexiscan there is less than 1.[address] segment depression noted from the baseline EKG. The EKG portion of the Lexiscan is nondiagnostic. Cardiac Stress and Resting SPECT Images: Cardiac Stress and Resting SPECT images were obtained using technetium 99m Myoview 30.7 mCi stress and 10.11 mCi at rest. Patient was unable to lay on stomach for prone images. Gated SPECT for analysis of segmental wall motion and calculation of the ejection fraction also done. Cardiac stress and rest SPECT may show partial reversible defect involving the inferior posterior basal wall consistent with ischemia and scar, compared right ejection fraction is 47% with moderate inferior wall hypokinesis. Right ventricle is normal size and contractility. Conclusion: 1. The EKG portion of the Lexiscan is nondiagnostic. 2. Scintigraphic evidence of mixed ischemia and scar involving the inferior wall, compared right ejection fraction is 47% with segmental wall motion abnormality described above, right ventricle is normal size and contractility. 3. Abnormal Lexiscan Myoview study. Electronically signed by : Tony Horton MD 04/02/2022 19:00:30
--- NOTE | 2022-04-01 06:53 | CA_ITS ---
APPROVED REPORT Exam: Pharmacologic Technologist: Herminia Sosa, Ht: 5 ft 3 in Wt: 176 lbs BSA: 1.83 m2 HR: 53 bpm BP: 141/68 mmHg Rhythm: SINUS YANA, 1 AVB, RBBB Medical History Medical History: HTN, Hyperlipidemia, Diabetes Medications: Omeprazole,,,,, Hydralazine,,,,, Aspirin,,,,, Gabapentin,,,,, Losartan,,,,, Metoprolol Tartrate,,,,, Duoneb,,,,, SyMBICORT,,,,, Restasis,,,,, Vit D3,,,,, Acetaminophen,,,,, Ibuprofen,,,,, Allergies: CODEINE, TRAMADOL, VARENICLINE Cardiac Risk Factors: HTN, Hyperlipidemia, Diabetes , Smoking Stress Test Details Test: LEXISCAN HR Resting HR: 52 bpm Max Heart Rate (APMHR): 157.381130 bpm Max HR Achieved: 71 bpm Target HR (85% APMHR): 133.736232 bpm % of APMHR: 45.22 Recovery HR: 67 bpm BP Resting BP: 141/68 mmHg Max BP: 141/68 mmHg Recovery BP: 139.0/63.0 mmHg ECG Resting ECG: SINUS YANA, 1 AVB, RBBB Clinical Exercise duration: 04:00 min Highest Stage Achieved: Exercise capacity: 1.0 METs Stress ECG Conclusion PT HAD NAUSEA, MILD SOA, AND HEAD DISCOMFORT. NO CP. NO SIGNIFICANT CHANGES. UNREMARKABLE LEXISCAN STRESS. MYOVIEW IMAGES REPORTED SEPARATELY. Electronically signed by : Tony Horton MD 04/02/2022 18:57:43
--- NOTE | 2022-04-01 08:50 | HMH.ITSHM ---
Current Home Medications as stated by this patient Mayur Ridley or manufacturer representative. []BUDESONIDE ATORVASTATIN ASA ACETAMINOPHEN VITAMIN B6 OXYCODONE OMEPRAZOLE METOPROLOL MEMANTINE MELATONIN LOSARTAN LEVETIRACETAM IPRATROPIUM INSULIN HYDRALAZINE GUAIFENESIN GABAPENTIN DONEPEZIL DOCUSATE CYCLOBENZAPRINE VITAMIN D3
== END ==
PROVIDERS: PCP Emergency Medicine; Visit Provider Physician Assistant
DX: R06.00 Dyspnea, unspecified (principal); R42 Dizziness and giddiness; I21.4 Non-ST elevation (NSTEMI) myocardial infarction; R09.89 Other specified symptoms and signs involving the circulatory and respiratory systems; R53.83 Other fatigue; F17.200 Nicotine dependence, unspecified, uncomplicated
CPT/HCPCS: 78452; 93017; 93306; 93880; A9502; J2785

== ENCOUNTER → 2022-04-03 08:43 | Outpatient (POV) | payer MEDICAID, SELFPAY ==
--- NOTE | 2022-04-03 09:20 | EXP.PAIN.SOA ---
[facility] Pain Management SOAP Note Subjective:: Patient is a pleasant 62-year-old male who presents today for follow-up. We are currently treating the patient for degenerative disc disease of lumbar spine with lumbar radiculopathy symptoms, bilateral sacroiliitis, foraminal stenosis L4-L5, disc bulge bulge multilevel lumbar spine. Today the patient rates his pain a 4 out of 10. He states the pain is primarily in his low back that radiates into his lower extremities with the majority of the pain down his left leg. Patient denies any new trauma or injury. He denies any change to the location or type of pain he experiences. Patient states he does get relief by laying down and resting. He describes this as a aching, throbbing sensation that is worse with increased activity. We have done injections in the past that have provided significant improvement including a lumbar epidural steroid injection. Patient is a resident at a long term facility where he is prescribed Flexeril 10 mg, ibuprofen, gabapentin, Percocet 10 mg 4 times a day. He denies any side effects from these medications. He states these medications do help manage his pain. His Kyler is [id number]. It is been reviewed and appropriate. Review of Systems: General: No recent weight changes, no fever, no sleep disturbances Respiratory: No cough, no shortness of air, no recurring pulmonary infections Cardiovascular/peripheral vascular: No chest pain, no palpitations, no edema, no shortness of breath Gastrointestinal: No new onset incontinence, normal bowel movements reported Genitourinary: No new onset incontinence Musculoskeletal: Low back pain Psychiatric: [Normal mood/affect] Neurological: [Denies weakness in extremities], [denies balance issues] Objective:: Physical Exam: General: Alert and oriented x3, no acute distress, pleasant and cooperative Lungs: Respirations even and unlabored, symmetrical chest expansion Eyes: PERRL Musculoskeletal: Flexion and extension of lumbar [spine] somewhat guarded secondary to pain, [antalgic gait noted] Neurological: Speech clear, no gross sensory deficit Assessment:: degenerative disc disease of lumbar spine with lumbar radiculopathy symptoms, bilateral sacroiliitis, foraminal stenosis L4-L5, disc bulge bulge multilevel lumbar spine Plan:: Patient continues to have pain in his low back that radiates into his bilateral lower extremities however at this time he is still at a manageable pain level. Patient does not need any additional injective therapy at this time. Patient did have limited range of motion of his lumbar spine during today's exam. We will follow back up with him in 1 month. Patient will return to the clinic in 1 month for reevaluation of symptoms and follow-up. Patient has been instructed to contact the clinic with any concerns before the next appointment. Dr. Villarreal has reviewed this note and agrees with this plan of care. This note was dictated using voice recognition software and make contain errors or omissions. [facility] Medical History (Updated 03/25/22 @ 09:00 by Alma Stokes RN) Back pain Carotid bruit COPD (chronic obstructive pulmonary disease) Dementia Diabetes mellitus Diabetes mellitus with diabetic neuropathy Glaucoma NSTEMI (non-ST elevated myocardial infarction) Patient's noncompliance with dietary regimen Seizure Tobacco dependence Social History Smoking Status: Current every day smoker tobacco type: cigarettes packs per day: 1 alcohol intake: never current occupational status: unemployed Travel in the last 8 weeks: None household members: other housing: long term current occupational exposures/hazards: No caffeine: Yes
[2022-04-03 09:47] VITALS: BP 130/63; PULSE 65; RESP 18; TEMP 36.6; O2SAT 97; BMI 30.1
== END ==
PROVIDERS: PCP Emergency Medicine; Visit Provider Nurse Practitioner Family
DX: M51.16 Intervertebral disc disorders with radiculopathy, lumbar region (principal); M46.1 Sacroiliitis, not elsewhere classified; M48.061 Spinal stenosis, lumbar region without neurogenic claudication
CPT/HCPCS: 99212; G0463

== ENCOUNTER → 2022-04-12 11:32 | Outpatient (CLI) | payer MEDICAID, SELFPAY | PROVIDERS: PCP Emergency Medicine; Visit Provider Emergency Medicine | DX: Z20.822 Contact with and (suspected) exposure to COVID-19 (principal) | CPT/HCPCS: C9803; U0003; U0005 ==

== ENCOUNTER 2022-04-15 08:23 | Day surgery (SDC) | payer MEDICAID, SELFPAY ==
[2022-04-15] VITALS (14 sets, daily range): BP systolic 150–193; BP diastolic 72–110; PULSE 58–70; RESP 16–18; TEMP 36.3–36.9; O2SAT 94–100; BMI 205.7
--- NOTE | 2022-04-15 07:05 | IR_ITS ---
APPROVED REPORT Patient Location: Outpatient PROCEDURES Left heart catheterization Left ventriculogram Selective coronary angiogram Drug-eluting stent deployment to the proximal ramus intermedius INDICATION Coronary artery disease, Angina pectoris, Informed consent was obtained prior to the procedure. COMPLICATIONS None Estimated Blood Loss: Less than 10 mls TECHNIQUE One percent lidocaine used to anesthetize the right anterior aspect of the wrist. The right radial artery was accessed via the Seldinger technique. A 6 Georgian sheath was placed in the right radial artery. 2.5 mg of verapamil, 800 mcg of nitroglycerin, 1mg Lidocaine and 5000 U Heparin were given through the arterial sheath. The papa catheter was also used to perform left heart catheterization, left ventriculogram and selective coronary angiogram. At the end the diagnostic angiogram therapeutic heparin was administered and the guide catheter was placed in the left main artery followed by wire being placed into the ramus intermedius. Primary stenting could not be performed neither could a 2.5 x 12 mm noncompliant balloon be delivered. A 2 mm x 12 mm balloon was used to predilate the area. Following this noncompliant balloon could still not be delivered. A 2.5 x 12 mm balloon was then delivered and deployed at 20 gerardo with the addition of a guide liner. With the presence of a guide liner eventually a 3 mm x 22 mm resolute Efren stent could be deployed at 22 and then 24 gerardo reducing the critical calcified stenosis to 0%. CHANNING-3 flow was present before and after the procedure. At the end of the procedure the apparatus was removed the sheath was removed and hemostasis was achieved using TR banding patient was transferred to the postop putting in stable condition. ANGIOGRAPHIC RESULTS The left main artery Normal The left anterior descending artery Has proximal eccentric 20% stenoses with mid vessel The circumflex artery Is dominant gives rise to large ramus intermedius which has a calcified 80 to 90% stenosis with additional 40% stenoses. The circumflex artery itself gives rise to 2 small obtuse marginal arteries. The proximal circumflex artery has a concentric calcified 90% stenosis however the vessel was 2 mm in diameter The right coronary artery Is nondominant and subtotally occluded in midsegment accompanied by CHANNING II flow The OBREGON ventriculogram reveals Normal 65% The left ventricular end-diastolic pressure 20 mmHg IMPRESSION Severe to critical calcification in the large proximal ramus intermedius with successful stenting reducing the lesion to 0% with 1 drug-eluting stent Persistent severe stenosis and a 2 mm circumflex artery giving rise to 2 small to medium sized obtuse marginal arteries Subtotally occluded nondominant right coronary Normal ejection fraction with elevated LVEDP PLAN 1. Dual antiplatelet therapy 2. Risk factor modification 3. Cardiac rehabilitation 4. LDL less than 55 to be achieved with high intensity statin 5. Avoidance of tobacco products 6. For the time being I recommend treating the circumflex artery medically. Should patient continue experience angina pectoris I would consider stenting the circumflex artery however this appears to be not much if any bigger than a 2 mm vessel therefore medical management is most desired Electronically signed by : Joni Adhikari MD 04/17/2022 14:19:42
--- NOTE | 2022-04-15 11:40 | SUR.PHASEII ---
Report given to JODY Pryor
[2022-04-15 11:45] LABS: CATHL Activated Clotting Time 263 SEC (74-125)
--- NOTE | 2022-04-15 13:50 | P.CONPHA_ITS ---
PHA Kier Pleater Discharge Med Technician Inventory Specialist: Mayur Ridley has received discharge medication counseling on the following medications: -Brilinta (new medication, counseled on increased bleeding risk/bruising, falls and bumps to heads should be evaluated) - atorvastatin (previous medication) - metoprolol (previous medication) - losartan (new medication, blood pressure medication, sitting/standing up suddenly can cause some highheadness/dizziness for the first few days which are also signs of hypotension) He acknowledged understanding and had no further questions about his medications.
--- NOTE | 2022-04-15 14:17 | SUR.PHASEII ---
Anamaria spoke to company laborer about pt stating when he takes a deep breath, the bottom part of his heart feels cold . Meron from company laborer said that if pt has no shortness of breath and no chest pain and pt heart rhythm is normal sinus it is ok for him to be discharged. Pt reports no chest pain or sob. heart rate is NSR.
--- NOTE | 2022-04-15 14:29 | PC.NURSE ---
Pt ambulated to restroom and returned to bed, pt complained of SOA. JODY Peters spoke with photo lab manager nurse Caro and was informed that someone would be over to check on the patient.
--- NOTE | 2022-04-15 14:33 | PC.NURSE ---
JODY Chance from geophysical laboratory supervisor at bedside. Pt no longer complained of SOA or any issues. Pt states that he feels fine.
--- NOTE | 2022-04-15 14:40 | SUR.PHASEII ---
Report given to Re at [facility]
== END 2022-04-15 15:10 | disposition home or self-care (01) ==
PROVIDERS: PCP Emergency Medicine; Visit Provider Internal Medicine
DX: I25.118 Atherosclerotic heart disease of native coronary artery with other forms of angina pectoris; F17.210 Nicotine dependence, cigarettes, uncomplicated; Z79.899 Other long term (current) drug therapy; E11.9 Type 2 diabetes mellitus without complications; Z79.4 Long term (current) use of insulin; I25.2 Old myocardial infarction; I10 Essential (primary) hypertension
CPT/HCPCS: 85347; 92928; 93458; 99152; 99153; C1725; C1769; C1876; C9600; J1644

== ENCOUNTER → 2022-04-21 14:04 | Outpatient (CLI) | payer MEDICAID, SELFPAY ==
--- NOTE | 2022-04-21 14:08 | CA_ITS ---
FINAL REPORT TECHNIQUE: Duplex Doppler imaging of the right radial artery was obtained. CLINICAL HISTORY: pain, bruising right wrist post heart cath 04/15/22 with right radial wrist access. FINDINGS: The right radial artery is patent. There is no evidence of pseudoaneurysm. IMPRESSION: Unremarkable exam. Reviewed, Interpreted and Dictated by Reza Munoz III, MD Transcribed by Sangeetha Park Authenticated and [facility]
== END ==
PROVIDERS: PCP Emergency Medicine; Visit Provider Nurse Practitioner
DX: M25.531 Pain in right wrist (principal)
CPT/HCPCS: 93931

== ENCOUNTER → 2022-04-28 08:32 | Outpatient (POV) | payer MEDICAID, SELFPAY ==
[2022-04-28 08:40] VITALS: BP 137/50; PULSE 65; RESP 19; TEMP 36.3; O2SAT 97; BMI 31.8
--- NOTE | 2022-04-28 08:48 | EXP.PAIN.SOA ---
[facility] Pain Management SOAP Note Subjective:: Patient is a pleasant 62-year-old male who presents today for follow-up. We are currently treating the patient for degenerative disc disease of lumbar spine with lumbar radiculopathy symptoms, bilateral sacroiliitis, foraminal stenosis L4-L5, disc bulge multilevel lumbar spine. Today the patient rates his pain a 8 out of 10. Patient states the pain is in his low back that radiates into his lower extremities. Patient denies any new trauma or injury. Patient denies any change in location or type of pain he experiences. Patient states this is a aching, throbbing sensation that is worse with increased activity. Patient has had injections in the past that provided significant improvement of his symptoms. His last epidural injection in February provided 60 to 70% relief lasting approximately 2 months and his injection before that gave 80 to 90% relief lasting 3 months. Patient is a residential resident where he is prescribed Flexeril 10 mg, ibuprofen, gabapentin, Percocet 10 mg 4 times a day. Patient denies any side effects from these medications. He states these medications do help manage to treat his pain symptoms. Patient has recently had a cardiac stent placed. Patient denies any side effects following this procedure. He is interested in a repeat injection at today's visit. His Kyler is [id number]. It is been reviewed and appropriate. Injections: Transforaminal EUGENIE L4-L5, L5-S1?02/14/2022 LESI L4-L5?10/2021 Left SI?07/19/2021 LESI L4-L5?04/05/2021 LESI L5-S1?12/28/2020 LESI L4-L5?11/23/2020 Bilateral SI?05/11/2020 LESI L4-L5?01/13/2020 Medial branch block L3-L4, L4-L5, L5-S1?12/02/2019 RFA lumbar L3-L4, L4-L5, L5-S1?11/09/2019 Review of Systems: General: No recent weight changes, no fever, no sleep disturbances Respiratory: No cough, no shortness of air, no recurring pulmonary infections Cardiovascular/peripheral vascular: No chest pain, no palpitations, no edema, no shortness of breath Gastrointestinal: No new onset incontinence, normal bowel movements reported Genitourinary: No new onset incontinence Musculoskeletal: Low back pain Psychiatric: [Normal mood/affect] Neurological: [Denies weakness in extremities], [denies balance issues] Objective:: Physical Exam: General: Alert and oriented x3, no acute distress, pleasant and cooperative Lungs: Respirations even and unlabored, symmetrical chest expansion Eyes: PERRL Musculoskeletal: Flexion and extension of lumbar [spine] somewhat guarded secondary to pain, [antalgic gait noted] Neurological: Speech clear, no gross sensory deficit Assessment:: degenerative disc disease of lumbar spine with lumbar radiculopathy symptoms, bilateral sacroiliitis, foraminal stenosis L4-L5, disc bulge multilevel lumbar spine Plan:: Patient is experiencing significant pain in his low back that radiates into his lower extremities. Patient did have limited range of motion of his lumbar spine during today's visit. I have discussed with the patient regarding having a repeat lumbar epidural. Risk and benefits have been discussed with the patient. He would like to proceed forward with this option. Patient does take aspirin 81 mg daily. We will consult with Dr. Adhikari's office for cardiac clearance prior to this injection. We will schedule the patient for a LESI L4-L5 at today's visit. Patient has been instructed to contact the clinic with any concerns before the next appointment. Dr. Villarreal has reviewed this note and agrees with this plan of care. This note was dictated using voice recognition software and make contain errors or omissions. [facility] Medical History (Updated 04/21/22 @ 13:52 by Kerry Bautista RN) Back pain Carotid bruit COPD (chronic obstructive pulmonary disease) Dementia Diabetes mellitus Diabetes mellitus with diabetic neuropathy Glaucoma NSTEMI (non-ST elevated myocardial infarction) Patient's noncompliance with dietary regimen Seizure Tobacco dependen
== END ==
PROVIDERS: PCP Emergency Medicine; Visit Provider Nurse Practitioner Family
DX: M51.16 Intervertebral disc disorders with radiculopathy, lumbar region (principal); M46.1 Sacroiliitis, not elsewhere classified; M48.061 Spinal stenosis, lumbar region without neurogenic claudication; Z72.0 Tobacco use; Z79.899 Other long term (current) drug therapy
CPT/HCPCS: 99212; G0463

== ENCOUNTER 2022-05-04 11:37 | Inpatient (IN) | payer MEDICAID, SELFPAY ==
[2022-05-04] VITALS (14 sets, daily range): BP systolic 114–140; BP diastolic 55–65; PULSE 72–88; RESP 16–20; TEMP 36.8–37.1; O2SAT 90–99; BMI 30.8; BMI 31.1
--- NOTE | 2022-05-04 12:07 | XR_ITS ---
PROCEDURE INFORMATION: Exam: XR Chest Exam date and time: 05/04/2022 12:47 PM Age: 62 years old Clinical indication: Cough; Additional info: Cough, weakness TECHNIQUE: Imaging protocol: Radiologic exam of the chest. Views: 1 view. COMPARISON: CT LUNG SCREENING 12/05/2021 2:09 PM FINDINGS: Lungs: Unremarkable. No consolidation. Pleural spaces: Unremarkable. No pleural effusion. No pneumothorax. Heart/Mediastinum: Unremarkable. No cardiomegaly. Bones/joints: Unremarkable. IMPRESSION: No acute findings.
[2022-05-04 12:14] LABS: Coronavirus 19, PCR Not Detected (NotDetected); Influenza A, PCR Not Detected (NotDetected); Influenza B, PCR Not Detected (NotDetected)
[2022-05-04 12:16] LABS: Basophils # 0.1 K/mm3 (0-0.2); Basophils % 0.6 % (0.1-2.0); Eosinophils # 0.4 K/mm3 (0.0-0.4); Eosinophils % 4.7 % (0.1-12.0); Hematocrit 37.1 % (42.0-52.0); Hemoglobin 12.3 g/dL (14.1-18.0); Lymphocytes # 1.9 K/mm3 (0.7-4.5); Lymphocytes % 20.5 % (10-50); Mean Corpuscular HGB Conc 33.1 g/dL (31.8-35.4); Mean Corpuscular Hemoglobin 30.6 pg (27.0-31.2); Mean Corpuscular Volume 92.4 fl (80-94); Mean Platelet Volume 7.7 fl (7.4-10.4); Monocytes # 0.5 K/mm3 (0.1-1.0); Monocytes % 5.7 % (1.7-9.3); Neutrophils # 6.2 K/mm3 (1.8-7.8); Neutrophils % 68.5 % (37.0-80.0); Platelet Count 245 K/mm3 (142-424); Red Blood Count 4.01 M/mm3 (4.60-6.20); Red Cell Distribution Width 13.5 % (11.5-17.5); White Blood Count 9.1 K/mm3 (4.8-10.8)
[2022-05-04 12:19] LABS: Chloride 105 mmol/L (98-107); Potassium 5.8 mmoL/L (3.5-5.1); Sodium 138 mmol/L (136-145)
[2022-05-04 12:21] LABS: Alanine Aminotransferase 32 U/L (12-78); Aspartate Amino Transferase 31 U/L (17-59); Blood Urea Nitrogen 45 mg/dl (9-20); Creatinine Clearance Estimated 32 mL/min (50-200); Estimated Glomerular Filt Rate 25 ml/min (>60); GFR (African American) 30 ML/MIN (>60)
[2022-05-04 12:22] LABS: Albumin Level 3.8 g/dl (3.5-5.0); Albumin/Globulin Ratio 1.2 (1.1-1.8); Alkaline Phosphatase 107 U/L (38-126); Anion Gap 14.8 mEq/L (5-15); Bilirubin,Total 0.4 mg/dl (0.2-1.3); Calcium 8.6 mg/dl (8.4-10.2); Carbon Dioxide 24 mmol/L (22.0-30.0); Globulin 3.2 g/dL (1.3-3.2); Glucose 186 mg/dl (74-100)
--- NOTE | 2022-05-04 12:25 | HMH.EDGENADL ---
Discharge Plan Disposition Patient Disposition: Admitted as Observation Condition: Fair Chief Complaint: Weakness Prescriptions Prescriptions: No Action donepezil 10 mg tablet 10 mg PO DAILY hydralazine 25 mg tablet 25 mg PO TID ipratropium-albuterol 0.5 mg-3 mg(2.5 mg base)/3 mL solution for nebulization 3 ml IH QID PRN (Reason: shortness of breath or wheezing) 90 Days Qty: 360 3RF dextromethorphan-guaifenesin [Diabetic Tussin DM] 10-100 mg/5 mL liquid 10 ml PO Q4-6H PRN (Reason: Cough) acetaminophen 500 mg tablet 500 mg PO Q6H PRN (Reason: Pain) docusate sodium 100 mg capsule 100 mg PO DAILY PRN (Reason: BOWELS) pyridoxine (vitamin B6) 50 mg tablet 250 mg PO DAILY ibuprofen 600 mg tablet 600 mg PO TID PRN (Reason: Pain) cholecalciferol (vitamin D3) 25 mcg (1,000 unit) capsule 25 mcg PO DAILY insulin lispro protamin-lispro [Humalog Mix 75-25 KwikPen] 100 unit/mL (75-25) insulin pen 45 unit SQ DAILY Rx Instructions: 45 units at 8am 40 units at 4:30 pm cyclosporine [Restasis] 0.05 % dropperette 1 drp ophthalmic (eye) Q12H memantine 10 mg tablet 10 mg PO BID melatonin 10 mg capsule 10 mg PO HS PRN (Reason: Sleep) guaifenesin [Mucus Relief ER] 600 mg tablet extended release 12hr 600 mg PO Q12H PRN (Reason: Cough) ziprasidone HCl 80 mg capsule 80 mg PO BID Rx Instructions: give with food (meal/snack) sennosides 8.6 mg tablet 8.6 mg PO BID gabapentin 300 mg capsule 300 mg PO TID Qty: 90 5RF oxycodone-acetaminophen 10-325 mg tablet 1 tab PO QID Qty: 120 0RF clopidogrel [Plavix] 75 mg tablet 75 mg PO DAILY Levemir FlexTouch U-100 Insuln 100 unit/mL (3 mL) Insulin Pen 30 unit SQ HS brimonidine-timolol [Combigan] 0.2-0.5 % Drops 1 drp OPHTHALMIC (EYE) BID cyclobenzaprine 10 MG tablet 10 mg PO BID atorvastatin 40 MG tablet 40 mg PO DAILY levetiracetam 500 MG tablet 500 mg PO BID aspirin 81 MG tablet,delayed release (DR/EC) 81 mg PO DAILY omeprazole 20 MG capsule,delayed release(DR/EC) 20 mg PO DAILY losartan 100 MG tablet 100 mg PO DAILY metoprolol tartrate 25 MG tablet 25 mg PO BID budesonide-formoterol 10.2 GM HFA aerosol inhaler 2 puff IH BID Referrals Follow up/Referrals: Provider,Referral, MD [Referring] - See instructions Clinical Impressions Clinical Impression: SHWETA (acute kidney injury), Acute hyperkalemia Discharge ED Provider: Edy Lawton General Adult HPI General Chief complaint: Weakness Stated complaint: weakness Time Seen by Provider: 05/04/22 12:15 Mode of Arrival: EMS Source of Information: Patient Limitations: No Limitations Description of Symptoms (Recalled from ER Triage Doc. by RN): Pt reports just not feeling well today. Pt reports generalized weakness, arms and legs feel weak. Pt reports had trouble getting out of bed this morning. States he woke up not feeling well. I noted a cough during triage, pt reports cough is not prodcutive. Pt states did try to eat breakfast this morning but did not eat much. History of Present Illness HPI narrative: Patient states that he woke up this morning feeling very weak. Arms and legs are weak. States that he could barely make it to the bathroom today. He felt fine yesterday. Denies fever. He does have a mild nonproductive cough. Denies chest pain or shortness of breath. Denies abdominal pain, vomiting, diarrhea, or urinary symptoms. States he had a cardiac stent by Dr. Adhikari about 3 weeks ago. Related Data Home Medications Medication Instructions Recorded Confirmed donepezil 10 mg tablet 10 mg PO DAILY alzheimers 08/30/19 05/04/22 hydralazine 25 mg tablet 25 mg PO TID Anxiety 08/30/19 05/04/22 aspirin 81 mg tablet,delayed 81 mg PO DAILY Blood thinner 11/09/19 05/04/22 release atorvastatin 40 mg tablet 40 mg PO DAILY Cho
[2022-05-04 12:36] LABS: Troponin I < 0.01 ng/ml (0.00-0.034)
--- NOTE | 2022-05-04 12:38 | PC.NURSE ---
rad at bedside for portable cxr
--- NOTE | 2022-05-04 12:45 | ECG_ITS ---
APPROVED REPORT Exam: Resting ECG HR:79 bpm ECG Measurements Heart Rate 79 AXES IA 168 P 31 QRSd 158 QRS 97 QT 406 T 47 QTc 440 Conclusion SINUS RHYTHM RIGHT BUNDLE BRANCH BLOCK [120+ ms QRS DURATION, UPRIGHT V1, 40+ ms S IN I/aVL/V4/V5/V6] ABNORMAL ECG UNCONFIRMED REPORT Electronically signed by : Boom Coats MD 05/04/2022 21:17:59
[2022-05-04 13:39] LABS: Microscopic, Urine URINE MICROSCOPIC (MICROSCOPIC)
[2022-05-04 13:56] LABS: Appearance,Urine CLEAR (Clear); Bilirubin,Urine Negative (Negative); Blood, Urine Negative (Negative); Color,Urine YELLOW (Yellow); Glucose,Urine (UA) Negative (Negative); Ketones,Urine Negative (Negative); Leukocyte Esterase,Urine Negative (Negative); Nitrate,Urine Negative (Negative); Protein,Urine 2+ (Negative); Specific Gravity, Urine >= 1.030 (1.005-1.030); Urobilinogen,Urine 0.2 EU/dl (0.2)
[2022-05-04 14:10] LABS: WBC,Urine Occasional #/hpf (0-3)
--- NOTE | 2022-05-04 14:15 | PC.NURSE ---
IVONNE ANNA speaking with hospitalist
--- NOTE | 2022-05-04 14:29 | PC.NURSE ---
DR CUI SPOKE WITH HOSPITALIST , AND I SPOKE WITH SYLACAUGA FOR [facility]
--- NOTE | 2022-05-04 15:00 | PC.NURSE ---
2 green top specimens sent to lab at this time for repeat potassium ordered per dr. antonio and bmp ordered per dr. cruz
[2022-05-04 15:16] LABS: Chloride 107 mmol/L (98-107); Potassium 5.7 mmoL/L (3.5-5.1); Sodium 140 mmol/L (136-145)
[2022-05-04 15:19] LABS: Anion Gap 13.7 mEq/L (5-15); Blood Urea Nitrogen 45 mg/dl (9-20); Calcium 8.1 mg/dl (8.4-10.2); Carbon Dioxide 25 mmol/L (22.0-30.0); Creatinine Clearance Estimated 34 mL/min (50-200); Estimated Glomerular Filt Rate 26 ml/min (>60); GFR (African American) 32 ML/MIN (>60); Glucose 119 mg/dl (74-100)
[2022-05-04 15:32] LABS: Troponin I < 0.01 ng/ml (0.00-0.034)
--- NOTE | 2022-05-04 15:44 | PC.NURSE ---
report called to valentin easton on second floor at this time.
--- NOTE | 2022-05-04 16:27 | PC.NURSE ---
patient arrived to floor by wheelchair form ED
--- NOTE | 2022-05-04 16:39 | US_ITS ---
PROCEDURE INFORMATION: Exam: US Retroperitoneal; Complete; Kidneys and Bladder Exam date and time: 05/04/2022 7:08 PM Age: 62 years old Clinical indication: Other: Chronic kidney disease stage iii; Additional info: Fred diabetes dementia weakness hyperkalemia TECHNIQUE: Imaging protocol: Real-time ultrasound of the retroperitoneum with image documentation. Complete exam focused on the kidneys and bladder. COMPARISON: CT LUNG SCREENING 12/05/2021 2:09 PM FINDINGS: Right kidney: Normal. No stones. No hydronephrosis. Right kidney measuring 10.4 x 6.6 x 6.7 cm. Left kidney: Normal. No stones. No hydronephrosis. Left kidney measuring 11 x 5.5 x 5.3 cm. Urinary bladder: Not imaged. IMPRESSION: Unremarkable kidneys and bladder.
--- NOTE | 2022-05-04 16:49 | EXP.HP ---
History of Present Illness *Admission Date: 05/04/22 *Reason for visit:: Chief complaint: Weak *History of present illness: This is a 62-year-old male that presents to [facility] emergency department from his [facility] skilled nursing facility for weakness. His past medical history is significant for chronic kidney disease stage III, chronically prescribed ibuprofen, ongoing tobacco dependence, COPD, seizure disorder, chronic narcotic therapy with MME 60, diabetes, dementia, coronary artery disease status post left heart cath with BARRY deployment April 15, 2022. He reports approximately 48 hours of feeling weak worse over the last 24 hours not improving with his routine medication regimen and skilled nursing care. He denies falls, syncope or injury. He denies chest pain or acute dyspnea. In the ED his laboratory studies identify a potassium of 5.8 and creatinine 2.6 (baseline 1.4). His troponin is negative and his ECG identifies sinus rhythm with right bundle branch block. [facility] Medical History Back pain Carotid bruit COPD (chronic obstructive pulmonary disease) Dementia Diabetes mellitus Diabetes mellitus with diabetic neuropathy Glaucoma NSTEMI (non-ST elevated myocardial infarction) Patient's noncompliance with dietary regimen Seizure Tobacco dependence Surgical History History of cardiac cath Social History Smoking Status: Current every day smoker tobacco type: cigarettes packs per day: 1 alcohol intake: never current occupational status: disabled Travel in the last 8 weeks: None household members: other housing: skilled nursing current occupational exposures/hazards: No caffeine: Yes Review of Systems Review of Systems Review of systems:: pertinent systems reviewed and negative unless documented below Constitutional Constitutional: Denies headache(s), Reports lethargy and Reports weakness ENT Ears, Nose, Mouth, and Throat: Denies headache(s) *Cardiovascular Cardiovascular: Denies chest pain and Denies dyspnea *Respiratory Respiratory: Denies dyspnea *Gastrointestinal Gastrointestinal: Denies nausea and Denies vomiting *Musculoskeletal Musculoskeletal: Reports back pain and Denies numbness *Neurologic Neurologic: Denies localized weakness, Denies headache(s), Denies numbness and Reports weakness Meds Home Medications and Allergies Home Medications Medication Instructions Recorded Confirmed Type donepezil 10 mg tablet 10 mg PO DAILY alzheimers 08/30/19 05/04/22 History hydralazine 25 mg tablet 25 mg PO TID Anxiety 08/30/19 05/04/22 History aspirin 81 mg tablet,delayed 81 mg PO DAILY Blood thinner 11/09/19 05/04/22 History release atorvastatin 40 mg tablet 40 mg PO DAILY Cholesterol 11/09/19 05/04/22 History cyclobenzaprine 10 mg tablet 10 mg PO BID muscle spasms 11/09/19 05/04/22 History levetiracetam 500 mg tablet 500 mg PO BID seizures 11/09/19 05/04/22 History losartan 100 mg tablet 100 mg PO DAILY blood pressure 11/09/19 05/04/22 History metoprolol tartrate 25 mg tablet 25 mg PO BID blood pressure 11/09/19 05/04/22 History omeprazole 20 mg capsule,delayed 20 mg PO DAILY acid reflux 11/09/19 05/04/22 History release ipratropium 0.5 mg-albuterol 3 mg 3 ml inhalation QID PRN shortness 12/05/21 04/28/22 Rx (2.5 mg base)/3 mL nebulization of breath or wheezing 90 days #360 soln mL budesonide-formoterol HFA 160 2 puff inhalation BID COPD 01/30/22 05/04/22 History mcg-4.5 mcg/actuation aerosol inhaler gabapentin 300 mg capsule 300 mg PO TID Pain #90 caps 02/10/22 05/04/22 Rx acetaminophen 500 mg tablet 500 mg PO Q6H PRN Pain 03/25/22 04/28/22 History cholecalciferol (vitamin D3) 25 25 mcg PO DAILY SUPPLIMENT 03/25/22 05/04/22 History mcg (1,000 unit) capsule cyclosporine 0.05 % eye drops in a 1 drp ophthalmi
[2022-05-04 17:39] LABS: POC Glucose,Bedside 122 (70-110)
[2022-05-04 18:39] LABS: Troponin I < 0.01 ng/ml (0.00-0.034)
[2022-05-04 22:09] LABS: POC Glucose,Bedside 164 (70-110)
[2022-05-05] VITALS (18 sets, daily range): BP systolic 117–175; BP diastolic 57–72; PULSE 70–94; RESP 17–20; TEMP 36.6–37.8; O2SAT 88–100; BMI 31.6
[2022-05-05 06:25] LABS: POC Glucose,Bedside 137 (70-110)
--- NOTE | 2022-05-05 06:30 | PC.NURSE ---
pt has rested t/o shift, does wake up to name, has remained on 2L NC, O2 sats 96-99%, SBP 117-120, HR 80-85, no complaints of pain or SOA, does state he feels bad, dalton remains in place, 550 mL out so far this shift
--- NOTE | 2022-05-05 07:41 | SW/DCPLANNER ---
Addendum entered by Tabby Giles 05/06/22 11:13: Patient will return to [facility] level of care. I have updated Aliya w/ [facility] and patient will NOT require an additional COVID swab prior to return. Patient information has been faxed to Aliya. Addendum entered by Tabby Giles 05/05/22 11:29: Updated patient information has been faxed to [facility]. Original Note: This patient currently resides at [facility] level of care. I will continue to follow up with Aliya at [place] until patient is medically stable for discharge. Discharge date is unknown at this time.
[2022-05-05 09:26] LABS: Basophils % 0.4 % (0.1-2.0); Eosinophils # 0.5 K/mm3 (0.0-0.4); Eosinophils % 5.5 % (0.1-12.0); Hematocrit 32.6 % (42.0-52.0); Lymphocytes % 21.9 % (10-50); Mean Corpuscular Volume 93.8 fl (80-94); Mean Platelet Volume 8.6 fl (7.4-10.4); Monocytes # 0.8 K/mm3 (0.1-1.0); Monocytes % 8.9 % (1.7-9.3); Neutrophils # 5.7 K/mm3 (1.8-7.8); Neutrophils % 63.3 % (37.0-80.0); Platelet Count 209 K/mm3 (142-424); Red Blood Count 3.48 M/mm3 (4.60-6.20); Red Cell Distribution Width 13.7 % (11.5-17.5); White Blood Count 9.1 K/mm3 (4.8-10.8)
[2022-05-05 09:28] LABS: Hemoglobin 10.8 g/dL (14.1-18.0)
--- NOTE | 2022-05-05 09:29 | PC.NURSE ---
Attempted to call Re HAYNES @ [phone] to confirm code status. No answer, message left with call back number.
[2022-05-05 09:40] LABS: Chloride 115 mmol/L (98-107); Sodium 139 mmol/L (136-145)
[2022-05-05 09:42] LABS: Anion Gap 14.7 mEq/L (5-15); Blood Urea Nitrogen 47 mg/dl (9-20); Calcium 7.9 mg/dl (8.4-10.2); Carbon Dioxide 16 mmol/L (22.0-30.0); Creatinine Clearance Estimated 39 mL/min (50-200); Estimated Glomerular Filt Rate 30 ml/min (>60); GFR (African American) 37 ML/MIN (>60); Glucose 153 mg/dl (74-100); Magnesium 1.6 mg/dl (1.6-2.3)
[2022-05-05 09:49] LABS: Potassium 6.7 mmoL/L (3.5-5.1)
--- NOTE | 2022-05-05 09:59 | PC.NURSE ---
RESP CARE NOTE: Pt had removed oxygen from nares. SPO2 at 88% on room air. Oxygen replaced at 2 lpm nasal cannula.
--- NOTE | 2022-05-05 10:36 | P.CONPHA_ITS ---
Pharmacy Intervention Comments: home medication list completed using mar from [facility]
--- NOTE | 2022-05-05 11:07 | PC.NURSE ---
Made Dr. Turk aware of Critical K of 6.7. Repeat K level ordered.
[2022-05-05 11:36] LABS: POC Glucose,Bedside 155 (70-110)
[2022-05-05 11:41] LABS: Potassium 6.6 mmoL/L (3.5-5.1)
--- NOTE | 2022-05-05 12:36 | PC.NURSE ---
Dr. Turk notified of k of 6.6.
--- NOTE | 2022-05-05 13:04 | EXP.PN ---
Subjective *Date: 05/05/22 *Time: 13:04 Interval history: Date of service 05/05/2022 The patient reports that he is starting to feel better. Dee VERA reports that he remains afebrile with a T-max 100.0 with stable heart rates and stable blood pressures. He is saturating appropriately on 2 L of oxygen via nasal cannula. We have reviewed and discussed this morning labs identifying a stable white blood cell count and hemoglobin. His morning chemistries identify a nonanion gap metabolic acidosis with a elevated potassium and improved creatinine. Exam Data for Last 24 hours Vital signs and Labs for Last 24 Hours: Temp Pulse Resp BP Pulse Ox FiO2 99.4 F 76 20 166/67 H 98 28 05/05/22 12:30 05/05/22 12:52 05/05/22 12:30 05/05/22 12:30 05/05/22 12:53 05/04/22 18:00 Laboratory Results - last 24 hr 05/04/22 13:30: Urine Color Yellow, Urine Appearance Clear, Urine pH 6.0, Ur Specific Raymond >= 1.030, Urine Protein 2+, Urine Glucose (UA) Negative, Urine Ketones Negative, Urine Blood Negative, Urine Nitrate Negative, Urine Bilirubin Negative, Urine Urobilinogen 0.2, Ur Leukocyte Esterase Negative, Urine RBC None, Urine WBC Occasional, Ur Squamous Epith Cells None, Urine Bacteria None 05/04/22 14:57: Troponin I < 0.01 05/04/22 14:57: Sodium 140, Potassium 5.7 H, Chloride 107, Carbon Dioxide 25, Anion Gap 13.7, BUN 45 H, Creatinine 2.50 H, Estimated Creat Clear 34, Estimated GFR 26 L, Est GFR ( Amer) 32 L, Glucose 119 H D, Calcium 8.1 L 05/04/22 17:00: Troponin I < 0.01 05/04/22 17:30: POC Glucose 122 H 05/04/22 21:50: POC Glucose 164 H 05/05/22 05:50: POC Glucose 137 H 05/05/22 09:15: WBC 9.1, RBC 3.48 L, Hgb 10.8 L D, Hct 32.6 L, MCV 93.8, MCH 31.0, MCHC 33.0, RDW 13.7, Plt Count 209, MPV 8.6, Neut % (Auto) 63.3, Lymph % (Auto) 21.9, [place] % (Auto) 8.9, Eos % (Auto) 5.5, Baso % (Auto) 0.4, Neut # (Auto) 5.7, Lymph # (Auto) 2.0, [place] # (Auto) 0.8, Eos # (Auto) 0.5 H, Baso # (Auto) 0.0 05/05/22 09:15: Sodium 139, Potassium 6.7 H*, Chloride 115 H, Carbon Dioxide 16 L, Anion Gap 14.7, BUN 47 H, Creatinine 2.20 H, Estimated Creat Clear 39, Estimated GFR 30 L, Est GFR ( Amer) 37 L, Glucose 153 H D, Calcium 7.9 L, Magnesium 1.6 05/05/22 11:20: Potassium 6.6 H* 05/05/22 11:28: POC Glucose 155 H I & O for Last 24 hours: Intake & Output 05/02/22 05/03/22 05/04/22 05/05/22 23:59 23:59 23:59 23:59 Intake Total 60 / 60 120 / 120 Output Total 550 / 550 Balance 60 / 60 -430 / -430 Weight 79.917 kg 80.91 kg Constitutional Constitutional: no acute distress, obese and cooperative *Routine HEENT Exam Head: Present normocephalic and atraumatic Eye: Present EOMI and PERRL ENT: Present mucous membranes moist *Routine Neck Exam Neck: Present supple and trachea midline; Absent JVD, lymphadenopathy or thyromegaly *Routine Respiratory Exam Respiratory: Present rhonchi and normal respiratory effort; Absent respiratory distress *Routine Cardiovascular Exam Cardiovascular: Present RRR, Normal S1 and Normal S2; Absent murmur *Routine Abdominal Exam Abdominal: Present soft and normoactive bowel sounds; Absent tenderness *Routine Extremities Exam Extremities: Present full ROM and normal capillary refill; Absent cyanosis, clubbing or edema *Routine Skin Exam Skin: Present dry and warm; Absent rash *Routine Neurological Exam Neurological: Present alert, oriented X3, vision grossly intact, hearing grossly intact and normal speech; Absent sensory deficit or motor deficit Routine Psychiatric Exam Psychiatric: Present cooperative and depressed Assessment and Plan *Assessment and plan (1) SHWETA (acute kidney injury): Status: Acute Category: Medical Code(s): N17.9 - Acute kidney failure, unspecified (2) CKD (chronic kidney disease) stage 3, GFR 30-59 ml/min: Status: Acute Category: Medical Code(s): N18.30 - Chronic kidney disease, stage 3 unspecified (3) CAD (coronary artery disease): Stat
[2022-05-05 15:28] LABS: Potassium 6.5 mmoL/L (3.5-5.1)
--- NOTE | 2022-05-05 15:59 | ECG_ITS ---
APPROVED REPORT Exam: Resting ECG HR:76 bpm ECG Measurements Heart Rate 76 AXES NH 171 P 29 QRSd 162 QRS 105 QT 406 T 40 QTc 436 Conclusion SINUS RHYTHM RIGHT AXIS DEVIATION [QRS AXIS > 100] RIGHT BUNDLE BRANCH BLOCK [120+ ms QRS DURATION, UPRIGHT V1, 40+ ms S IN I/aVL/V4/V5/V6] ABNORMAL ECG UNCONFIRMED REPORT Electronically signed by : Boom Coats MD 05/06/2022 21:12:17
[2022-05-05 16:30] LABS: POC Glucose,Bedside 289 (70-110)
--- NOTE | 2022-05-05 16:50 | PC.NURSE ---
Notified Dr. Turk of K of 6.5.
[2022-05-05 18:23] LABS: Potassium 5.4 mmoL/L (3.5-5.1)
[2022-05-05 20:39] LABS: POC Glucose,Bedside 167 (70-110)
[2022-05-06] VITALS (7 sets, daily range): BP systolic 175–192; BP diastolic 73–79; PULSE 74–90; RESP 17–20; TEMP 37.1–37.5; O2SAT 89–97; BMI 72.2
[2022-05-06 05:31] LABS: POC Glucose,Bedside 89 (70-110)
--- NOTE | 2022-05-06 06:36 | PC.NURSE ---
NO ACUTE CHANGES SINCE PREVIOUS ASSESSMENT. PT HAS SLEPT WELL. LUNG SOUNDS CLEAR. PT REMAINS NSR ON TELE. PT HAS HAD SEVERAL LOOSE BM'S THIS SHIFT. TURNING IN BED INDEPENDENTLY. BED ALARM AND SEIZURE PADS IN PLACE FOR PT SAFETY. VSS.
[2022-05-06 08:26] LABS: Anion Gap 11.5 mEq/L (5-15); Blood Urea Nitrogen 31 mg/dl (9-20); Calcium 8.4 mg/dl (8.4-10.2); Carbon Dioxide 24 mmol/L (22.0-30.0); Chloride 111 mmol/L (98-107); Creatinine Clearance Estimated 36 mL/min (50-200); Estimated Glomerular Filt Rate 44 ml/min (>60); GFR (African American) 53 ML/MIN (>60); Glucose 124 mg/dl (74-100); Magnesium 1.2 mg/dl (1.6-2.3); Phosphorous 2.9 mg/dl (2.5-4.5); Potassium 4.5 mmoL/L (3.5-5.1); Sodium 142 mmol/L (136-145)
--- NOTE | 2022-05-06 08:41 | EXP.DC.SUM ---
General Admission date:: 05/04/22 Discharge date: 05/06/22 HPI HPI HPI: This is a 62-year-old male that presents to [facility] emergency department from his [facility] long-term facility for weakness. His past medical history is significant for chronic kidney disease stage III, chronically prescribed ibuprofen, ongoing tobacco dependence, COPD, seizure disorder, chronic narcotic therapy with MME 60, diabetes, dementia, coronary artery disease status post left heart cath with BARRY deployment April 15, 2022. He reports approximately 48 hours of feeling weak worse over the last 24 hours not improving with his routine medication regimen and long-term care. He denies falls, syncope or injury. He denies chest pain or acute dyspnea. In the ED his laboratory studies identify a potassium of 5.8 and creatinine 2.6 (baseline 1.4). His troponin is negative and his ECG identifies sinus rhythm with right bundle branch block. Hospital Course Hospital Course Hospital Course: Acute kidney injury with identified chronic kidney disease stage III-Baseline creatinine 1.4 with hyperkalemia on ED electrolyte assessment.? Treated with resuscitation during hospitalization. Held any nephrotoxic medications. Patient responded well to treatment with normalization of his potassium and improvement in kidney function. On day of discharge, creatinine 1.6. Potassium within a normal range. We will plan for discharge back to his long-term today, recommend labs in 4 to 5 days to monitor stability of kidney function and potassium. Hold NSAIDs and see decreased dose of Losartan in med rec. Coronary artery disease-status post left heart cath April 15 with BARRY deployment, antiplatelet therapy, P2Y12 inhibitor therapy, statin therapy, beta-ky therapy, held ARB therapy with acute kidney injury. Okay to resume losartan at decreased dose upon discharge. Continue with increased dosage of hydralazine. Diabetes with peripheral neuropathy-routine blood sugar monitoring, basal insulin therapy, gabapentin therapy, sliding scale insulin therapy, carbohydrate controlled diet with calorie restriction Dementia-routine nursing interaction, fall precautions, Aricept therapy, memantine therapy Seizure disorder-Keppra therapy, gabapentin therapy, seizure precautions COPD with ongoing tobacco dependence-pulse oximetry monitoring, oxygen therapy to maintain appropriate oxygen saturations, currently saturating appropriately on room air, Kaity/Miquel inhalation therapy, LABA/ICS inhalation therapy, tobacco cessation education, nicotine replacement therapy Labs normalized. Patient clinically improved. Recommend returning back to his long-term with continued monitoring. Okay to discharge in stable condition today. Exam Data for Last 24 hours Vital signs and Labs for Last 24 Hours: Temp Pulse Resp BP Pulse Ox FiO2 98.7 F 87 17 175/73 H 89 L 28 05/06/22 04:00 05/06/22 06:20 05/06/22 04:00 05/06/22 04:00 05/06/22 06:20 05/04/22 18:00 Laboratory Results - last 24 hr 05/05/22 09:15: WBC 9.1, RBC 3.48 L, Hgb 10.8 L D, Hct 32.6 L, MCV 93.8, MCH 31.0, MCHC 33.0, RDW 13.7, Plt Count 209, MPV 8.6, Neut % (Auto) 63.3, Lymph % (Auto) 21.9, [place] % (Auto) 8.9, Eos % (Auto) 5.5, Baso % (Auto) 0.4, Neut # (Auto) 5.7, Lymph # (Auto) 2.0, [place] # (Auto) 0.8, Eos # (Auto) 0.5 H, Baso # (Auto) 0.0 05/05/22 09:15: Sodium 139, Potassium 6.7 H*, Chloride 115 H, Carbon Dioxide 16 L, Anion Gap 14.7, BUN 47 H, Creatinine 2.20 H, Estimated Creat Clear 39, Estimated GFR 30 L, Est GFR ( Amer) 37 L, Glucose 153 H D, Calcium 7.9 L, Magnesium 1.6 05/05/22 11:20: Potassium 6.6 H* 05/05/22 11:28: POC Glucose 155 H 05/05/22 14:58: Potassium 6.5 H* 05/05/22 16:14: POC Glucose 289 H 05/05/22 18:07: Potassium 5.4 H 05/05/22 20:25: POC Glucose 167 H 05/06/22 05:23: POC Glucose 89 05/06/22 07:38: Sodium 142, Potassium 4.5, Chloride 111 H, Carbon Dioxide 24, Anion G
[2022-05-06 12:02] LABS: Sodium, Urine <20 mmol/L (Not Estab.)
[2022-05-06 12:13] LABS: POC Glucose,Bedside 190 (70-110)
--- NOTE | 2022-05-06 12:53 | PC.NURSE ---
REPORT CALLED TO PEYMAN @ [facility] @ [phone].
--- NOTE | 2022-05-07 12:54 | CARE MANAGER ---
I called and spoke with with Aliya at [facility], who states that patient is doing well. Facility received everything needed at time of discharge. No known needs or concerns at this time.
[2022-05-07 13:10] LABS: Osmolality, Urine 423 mOsmol/kg (.)
[2022-05-07 18:09] LABS: Calcium, Ionized 5.3 mg/dL (4.5-5.6)
== END 2022-05-06 13:00 | DRG 684 ==
LOC: ER 14:30 → 2ND 14:58
PROVIDERS: Admitting Provider Family Medicine; Emergency Provider Emergency Medicine; PCP Emergency Medicine; Visit Provider Internal Medicine Adolescent Medicine
DX: N17.9 Acute kidney failure, unspecified (principal); N18.30 Chronic kidney disease, stage 3 unspecified; I25.10 Atherosclerotic heart disease of native coronary artery without angina pectoris; E11.22 Type 2 diabetes mellitus with diabetic chronic kidney disease; F17.210 Nicotine dependence, cigarettes, uncomplicated; Z79.4 Long term (current) use of insulin; Z79.899 Other long term (current) drug therapy; Z79.02 Long term (current) use of antithrombotics/antiplatelets; E87.5 Hyperkalemia; E11.42 Type 2 diabetes mellitus with diabetic polyneuropathy; F17.200 Nicotine dependence, unspecified, uncomplicated; Z71.6 Tobacco abuse counseling; F03.90 Unspecified dementia, unspecified severity, without behavioral disturbance, psychotic disturbance, mood disturbance, and anxiety; G40.909 Epilepsy, unspecified, not intractable, without status epilepticus; J41.8 Mixed simple and mucopurulent chronic bronchitis
CPT/HCPCS: 36415; 71045; 76770; 80048; 80053; 81001; 82330; 82962; 83605; 83735; 83930; 83935; 84100; 84132; 84300; 84484; 85025; 87040; 93005; 94640; 94760; 94761; 99285; C9803; J3475; U0003; U0005

== ENCOUNTER → 2022-05-16 09:00 | Outpatient (CLI) | payer MEDICAID, SELFPAY | PROVIDERS: PCP Emergency Medicine; Visit Provider Emergency Medicine | DX: G93.41 Metabolic encephalopathy (principal) ==

== ENCOUNTER 2022-06-17 12:58 | Day surgery (SDC) | payer MEDICAID, SELFPAY ==
[2022-06-17 13:16] VITALS: BP 162/78; PULSE 85; RESP 18; TEMP 36.2; O2SAT 94; BMI 30.1
[2022-06-17 13:19] VITALS: BP 195/80; PULSE 85; RESP 18; O2SAT 96
[2022-06-17 13:20] VITALS: BP 195/80; PULSE 85; RESP 18; O2SAT 96
--- NOTE | 2022-06-17 13:23 | P.PCN_ITS ---
Procedure Date: 06/17/22 Time: 13:20 Anesthesiologist:: Nomi Navarro CRNA Complications:: None Pre-procedure Diagnosis:: Degenerative disc disease lumbar spine multilevels. Lumbar radiculopathy. Post-procedure Diagnosis:: Same. Indications for Procedure:: Very pleasant 62-year-old male that comes our clinic today for lumbar epidural steroid injection at the L4-5 level. Patient reports having this injection in the past with 3 months of significant improvement in terms of his low back pain and bilateral hip and leg radicular symptoms. He rates his pain today 01/12 Procedure Details:: Procedure: Lumbar epidural steroid injection under fluoroscopy Informed consent was obtained and the risks and benefits of the procedure were explained to the patient. The patient was taken to the procedure room and noninvasive monitors placed, including noninvasive blood pressure cuff and pulse oximeter. The back was viewed using C-arm Fluoroscopy and prepped using Chloraprep as a cleansing solution and the L4-L5 interspace was palpated. Skin a nd subcutaneous tissues were anesthetized using lidocaine 1.5% and a 25-gauge needle. After this, an 18-gauge Touhy epidural needle was placed into the L4-L5 interspace and advanced using fluoroscopic guidance and loss of resistance to air until the epidural space was encountered. After confirmation of needle placement in the epidural space, with dye, a solution containing normal saline, 3 mL and Depo-Medrol 80 mg were incrementally injected into the lumbar epidural space. The patient tolerated the procedure well with no complications. The patient was observed in the Pain Clinic and then discharged home neurologically intact. Plan and Disposition:: Patient was discharged without incident.
[2022-06-17 13:24] VITALS: BP 148/79; PULSE 87; RESP 18; O2SAT 94
== END 2022-06-17 13:24 | disposition home or self-care (01) ==
PROVIDERS: PCP Emergency Medicine; Visit Provider Nurse Anesthetist, Certified Registered
DX: M51.16 Intervertebral disc disorders with radiculopathy, lumbar region (principal); F17.210 Nicotine dependence, cigarettes, uncomplicated
CPT/HCPCS: 62323; J1040

== ENCOUNTER → 2022-07-01 13:53 | Outpatient (POV) | payer MEDICAID, SELFPAY ==
[2022-07-01 14:40] VITALS: BP 138/62; PULSE 79; RESP 20; BMI 30.1
--- NOTE | 2022-07-01 15:07 | EXP.PAIN.SOA ---
[facility] Pain Management SOAP Note Subjective:: Patient is a pleasant 62-year-old male who presents today for follow-up of lumbar epidural steroid injection at L4-L5 on 06/17/2022. We are currently treating the patient for degenerative disc disease of lumbar spine with lumbar radiculopathy symptoms, sacroiliitis, foraminal stenosis L4-L5, disc bulge multilevel lumbar spine. Today the patient rates his pain a 3 out of 10. He states he has had at least 70% relief following this injection and feels like it is continuing to give additional improvement. Patient has had multiple injections in the past that provided significant improvement. Patient states that he typically gets 70% relief with each of these injections. Patient is currently prescribed Percocet 10 mg 4 times a day. Patient denies any side effects from this medication. He states this medication does help improve his pain symptoms. His Kyler is [id number]. Its been reviewed and appropriate. Review of Systems: General: No recent weight changes, no fever, no sleep disturbances Respiratory: No cough, no shortness of air, no recurring pulmonary infections Cardiovascular/peripheral vascular: No chest pain, no palpitations, no edema, no shortness of breath Gastrointestinal: No new onset incontinence, normal bowel movements reported Genitourinary: No new onset incontinence Musculoskeletal: Low back pain Psychiatric: [Normal mood/affect] Neurological: [Denies weakness in extremities], [denies balance issues] Objective:: Physical Exam: General: Alert and oriented x3, no acute distress, pleasant and cooperative Lungs: Respirations even and unlabored, symmetrical chest expansion Eyes: PERRL Musculoskeletal: Flexion and extension of lumbar [spine] somewhat guarded secondary to pain, [antalgic gait noted] Neurological: Speech clear, no gross sensory deficit Assessment:: Degenerative disc disease of lumbar spine with lumbar radiculopathy symptoms, sacroiliitis, foraminal stenosis L4-L5, disc bulge multilevel lumbar spine Plan:: Patient continues to experience significant pain in his low back however he is doing well with his last lumbar epidural steroid injection and does not require any additional injective therapy at this time. Patient will return to clinic in 3 months for reevaluation of symptoms and follow-up. Patient has been instructed to contact the clinic with any concerns before the next appointment. Dr. Villarreal has reviewed this note and agrees with this plan of care. This note was dictated using voice recognition software and make contain errors or omissions. [facility] Disclaimer: The information contained in this section may have been updated after the patient was seen, as this information can be updated by other users. Medical History Back pain Carotid bruit COPD (chronic obstructive pulmonary disease) COPD (chronic obstructive pulmonary disease) Dementia Diabetes mellitus Diabetes mellitus with diabetic neuropathy Dyspnea on exertion Family history of asthma Glaucoma Mixed simple and mucopurulent chronic bronchitis NSTEMI (non-ST elevated myocardial infarction) Patient's noncompliance with dietary regimen Screening for lung cancer Seizure Shortness of breath Smoking greater than 30 pack years Tobacco abuse counseling Tobacco abuse disorder Tobacco dependence Surgical History History of cardiac cath History of colonoscopy Family History Other No significant family history Social History Smoking Status: Current every day smoker tobacco type: cigarettes packs per day: 1 alcohol intake: never current occupational status: disabled Travel in the last 8 weeks: None household members: other housing: prison current occupational expos
== END ==
PROVIDERS: PCP Emergency Medicine; Visit Provider Nurse Practitioner Family
DX: M51.16 Intervertebral disc disorders with radiculopathy, lumbar region (principal); M46.1 Sacroiliitis, not elsewhere classified; M48.061 Spinal stenosis, lumbar region without neurogenic claudication; F17.210 Nicotine dependence, cigarettes, uncomplicated
CPT/HCPCS: 99212; G0463

== ENCOUNTER → 2022-09-29 08:38 | Outpatient (POV) | payer MEDICAID, SELFPAY ==
--- NOTE | 2022-09-29 09:03 | EXP.PAIN.SOA ---
[facility] Pain Management SOAP Note Subjective:: Patient is a pleasant 62-year-old male who presents today for follow-up. We are currently treating the patient for degenerative disc disease of lumbar spine with lumbar radiculopathy symptoms, sacroiliitis, foraminal stenosis at L4-L5, disc bulge at multiple level lumbar spine. Today he rates his pain a 8 out of 10. Patient denies any new trauma or injury. Patient denies any change to location or type of pain he experiences. He states the pain is worse with increased activity. He has pain interferes with his activities of daily living such as cooking and cleaning. Patient does describe this as an aching, throbbing sensation. He is currently managed with Percocet 10 mg 4 times a day. Patient denies any side effects from this medication. He has previously gotten multiple lumbar epidural steroid injections that provided at least 70% improvement lasting 2 to 3 months. His last injection was in June and he is interested in scheduling another injection. His Kyler is [id number]. Its been reviewed and appropriate. Review of Systems: General: No recent weight changes, no fever, no sleep disturbances Respiratory: No cough, no shortness of air, no recurring pulmonary infections Cardiovascular/peripheral vascular: No chest pain, no palpitations, no edema, no shortness of breath Gastrointestinal: No new onset incontinence, normal bowel movements reported Genitourinary: No new onset incontinence Musculoskeletal: Low back pain Psychiatric: [Normal mood/affect] Neurological: [Denies weakness in extremities], [denies balance issues] Objective:: Physical Exam: General: Alert and oriented x3, no acute distress, pleasant and cooperative Lungs: Respirations even and unlabored, symmetrical chest expansion Eyes: PERRL Musculoskeletal: Flexion and extension of lumbar [spine] somewhat guarded secondary to pain, [antalgic gait noted] Neurological: Speech clear, no gross sensory deficit ORT score updated with low risk Assessment:: Degenerative disc disease of lumbar spine with lumbar radiculopathy symptoms, sacroiliitis, foraminal stenosis at L4-L5, disc bulge multilevel Plan:: Patient is experiencing worsening pain in his low back with limited range of motion. I have discussed with the patient that he may benefit from lumbar epidural steroid injection. Risk and benefits were discussed with the patient and he would like to proceed forward with this plan of care. Patient's last epidural provided 70% improvement lasting approximately 3 months. Patient is currently on Plavix and will have to come off this medication 7 days prior to his lumbar epidural. We will schedule him for a LESI L4-L5. Patient has been instructed to contact the clinic with any concerns before the next appointment. Dr. Villarreal has reviewed this note and agrees with this plan of care. This note was dictated using voice recognition software and make contain errors or omissions. [facility] Disclaimer: The information contained in this section may have been updated after the patient was seen, as this information can be updated by other users. Medical History Back pain Carotid bruit COPD (chronic obstructive pulmonary disease) COPD (chronic obstructive pulmonary disease) Dementia Diabetes mellitus Diabetes mellitus with diabetic neuropathy Dyspnea on exertion Family history of asthma Glaucoma Mixed simple and mucopurulent chronic bronchitis NSTEMI (non-ST elevated myocardial infarction) Patient's noncompliance with dietary regimen Screening for lung cancer Seizure Shortness of breath Smoking greater than 30 pack years Tobacco abuse counseling Tobacco abuse disorder Tobacco dependence Surgical History History of cardiac cath History of colonoscopy Family History Other
[2022-09-29 09:32] VITALS: BP 144/56; PULSE 63; RESP 18; O2SAT 96; BMI 30.1
== END ==
PROVIDERS: PCP Emergency Medicine; Visit Provider Nurse Practitioner Family
DX: M51.16 Intervertebral disc disorders with radiculopathy, lumbar region (principal); M46.1 Sacroiliitis, not elsewhere classified; M48.061 Spinal stenosis, lumbar region without neurogenic claudication
CPT/HCPCS: 99212; G0463

== ENCOUNTER 2022-10-07 09:06 | Day surgery (SDC) | payer MEDICAID, SELFPAY ==
[2022-10-07 09:23] VITALS: BP 164/72; PULSE 65; RESP 18; TEMP 36.4; O2SAT 98; BMI 30.1
[2022-10-07 09:38] VITALS: BP 200/97; PULSE 63; RESP 18; O2SAT 97
[2022-10-07 09:40] VITALS: BP 208/97; PULSE 63; RESP 18; O2SAT 96
--- NOTE | 2022-10-07 09:41 | EXP.PAIN.PRO ---
Procedure Date: 10/07/22 Time: 09:30 Anesthesiologist:: Nomi Navarro CRNA Complications:: None Pre-procedure Diagnosis:: Degenerative disc disease lumbar spine multilevels. Lumbar radiculopathy Post-procedure Diagnosis:: Same. Indications for Procedure:: Patient is a very pleasant 62-year-old male that comes for repeat lumbar epidural steroid injection at the L4-5 level. Patient had moderate to significant improvement terms of his low back pain as well as bilateral hip and leg radicular symptoms with his previous injection. He rates his pain today 6/10. Procedure Details:: Procedure: Lumbar epidural steroid injection under fluoroscopy Informed consent was obtained and the risks and benefits of the procedure were explained to the patient. The patient was taken to the procedure room and noninvasive monitors placed, including noninvasive blood pressure cuff and pulse oximeter. The back was viewed using C-arm Fluoroscopy and prepped using Chloraprep as a cleansing solution and the L4-L5 interspace was palpated. Skin and subcutaneous tissues were anesthetized using lidocaine 1.5% and a 25-gauge needle. After this, an 18-gauge Touhy epidural needle was placed into the L4-L5 interspace and advanced using fluoroscopic guidance and loss of resistance to air until the epidural space was encountered. After confirmation of needle placement in the epidural space, with dye, a solution containing normal saline, 3 mL and Depo-Medrol 80 mg were incrementally injected into the lumbar epidural space. The patient tolerated the procedure well with no complications. The patient was observed in the Pain Clinic and then discharged home neurologically intact. Plan and Disposition:: Patient was discharged without incident.
[2022-10-07 09:42] VITALS: BP 164/72; PULSE 69; RESP 18; TEMP 36.4; O2SAT 96
== END 2022-10-07 09:43 | disposition home or self-care (01) ==
PROVIDERS: PCP Emergency Medicine; Visit Provider Nurse Anesthetist, Certified Registered
DX: M51.16 Intervertebral disc disorders with radiculopathy, lumbar region (principal)
CPT/HCPCS: 62323; J1040

== ENCOUNTER → 2022-10-24 09:25 | Outpatient (POV) | payer MEDICAID, SELFPAY ==
[2022-10-24 09:37] VITALS: BP 137/69; PULSE 66; RESP 18; O2SAT 98; BMI 30.1
--- NOTE | 2022-10-24 09:40 | EXP.PAIN.SOA ---
[facility] Pain Management SOAP Note Subjective:: This patient is a very pleasant 62-year-old male that comes our clinic today for follow-up visit after receiving a therapeutic lumbar epidural steroid injection at the L4-5 level. Patient received the injection on 10/07/2022. He reports 70 to 80% improvement terms of his overall lumbar back pain as well as left hip and leg radicular symptoms. Patient states he is able to transition from sitting to standing much easier. He is reporting today he can ambulate with minimal pain since receiving the injection. Objective:: Patient is awake alert [place] x3. In no acute distress. Flexion-extension lumbar spine normal. Deep tendon reflexes upper lower extremities normal. Motor strength upper and lower extremities normal. There is no gross sensory deficit. Gait is normal. Assessment:: Degenerative disc disease lumbar spine multilevels. Lumbar radiculopathy. Lumbar spondylosis Plan:: Patient will call on an as-needed basis regarding future lumbar epidural steroid injections. [facility] Disclaimer: The information contained in this section may have been updated after the patient was seen, as this information can be updated by other users. Medical History Back pain Carotid bruit COPD (chronic obstructive pulmonary disease) COPD (chronic obstructive pulmonary disease) Dementia Diabetes mellitus Diabetes mellitus with diabetic neuropathy Dyspnea on exertion Family history of asthma Glaucoma Mixed simple and mucopurulent chronic bronchitis NSTEMI (non-ST elevated myocardial infarction) Patient's noncompliance with dietary regimen Screening for lung cancer Seizure Shortness of breath Smoking greater than 30 pack years Tobacco abuse counseling Tobacco abuse disorder Tobacco dependence Surgical History History of cardiac cath History of colonoscopy Family History Other No significant family history Social History Smoking Status: Current every day smoker tobacco type: cigarettes packs per day: 1 alcohol intake: never substance use type: denies use current occupational status: disabled Travel in the last 8 weeks: None household members: other housing: [facility] current occupational exposures/hazards: No caffeine: Yes
== END ==
PROVIDERS: PCP Emergency Medicine; Visit Provider Nurse Anesthetist, Certified Registered
DX: M51.16 Intervertebral disc disorders with radiculopathy, lumbar region (principal); M47.26 Other spondylosis with radiculopathy, lumbar region
CPT/HCPCS: 99212; G0463

== ENCOUNTER 2023-01-19 08:59 | Inpatient (IN) | payer MEDICAID, SELFPAY ==
[2023-01-19] VITALS (12 sets, daily range): BP systolic 141–222; BP diastolic 73–186; PULSE 60–110; RESP 17–23; TEMP 36.7–37.3; O2SAT 90–95; BMI 29.2; BMI 45.3; BMI 32.3
--- NOTE | 2023-01-19 09:03 | US_ITS ---
FINAL REPORT CLINICAL HISTORY: Smoker, HTN, DM, CAD, Bilateral leg pain,Cardiac stent FINDINGS: ANKLE-BRACHIAL PRESSURE INDICES Pressure indices are as follows: RIGHT LOWER EXTREMITY: Ankle-brachial pressure index: 1.1 Comments: Normal LEFT LOWER EXTREMITY: Ankle-brachial pressure index: 0.9 Comments: Normal IMPRESSION: No evidence of significant obstructive peripheral vascular disease of the lower extremities Reviewed, Interpreted and Dictated by Louisa aPrks MD Transcribed by Sangeetha Park Authenticated and [facility]
--- NOTE | 2023-01-19 09:05 | HMH.EDGENADL ---
Discharge Plan Disposition Patient Disposition: Home, Self-Care Condition: Fair Chief Complaint: Weakness Prescriptions Prescriptions: No Action donepezil 10 mg tablet 10 mg PO HS albuterol sulfate 90 mcg/actuation HFA aerosol inhaler 2 inh inhalation QID PRN (Reason: shortness of breath or wheezing) 90 Days Qty: 8.5 2RF acetaminophen 500 mg tablet 500 mg PO Q4HP PRN (Reason: pain/fever) docusate sodium 100 mg capsule 100 mg PO DAILY PRN (Reason: Constipation) pyridoxine (vitamin B6) 50 mg tablet 250 mg PO DAILY cholecalciferol (vitamin D3) 25 mcg (1,000 unit) capsule 25 mcg PO DAILY insulin lispro protamin-lispro [Humalog Mix 75-25 KwikPen] 100 unit/mL (75-25) insulin pen 40 unit SQ 1630 cyclosporine [Restasis] 0.05 % dropperette 1 drp ophthalmic (eye) Q12H memantine 10 mg tablet 10 mg PO BID melatonin 10 mg capsule 10 mg PO HS PRN (Reason: Sleep) guaifenesin [Mucus Relief ER] 600 mg tablet extended release 12hr 600 mg PO BID ziprasidone HCl 80 mg capsule 80 mg PO BID Rx Instructions: give with food (meal/snack) sennosides 8.6 mg tablet 8.6 mg PO BID gabapentin 300 mg capsule 300 mg PO TID Qty: 90 5RF oxycodone-acetaminophen 10-325 mg tablet 1 tab PO QID Qty: 120 0RF clopidogrel [Plavix] 75 mg tablet 75 mg PO DAILY Levemir FlexTouch U100 Insulin 100 unit/mL (3 mL) Insulin Pen 30 unit SQ HS brimonidine-timolol [Combigan] 0.2-0.5 % Drops 1 drp OPHTHALMIC (EYE) BID albuterol sulfate 1.25 mg/3 mL Solution For Nebulization 1.25 mg INHALATION Q4HP PRN (Reason: Shortness Of Breath) aspirin [Aspirin Childrens] 81 mg Tablet,Chewable 81 mg PO DAILY insulin lispro protamin-lispro [Humalog Mix 75-25 KwikPen] 100 unit/mL (75-25) Insulin Pen 45 unit SQ 0800 lactulose 10 gram/15 mL Solution 20 g PO BID hydralazine 25 mg tablet 25 mg PO TID 30 Days Qty: 90 0RF losartan 100 MG tablet 50 mg PO DAILY 30 Days Qty: 15 0RF budesonide-formoterol [Symbicort] 160-4.5 mcg/actuation HFA aerosol inhaler 2 puff inhalation BID cyclobenzaprine 10 MG tablet 10 mg PO BID atorvastatin 40 MG tablet 40 mg PO HS levetiracetam 500 MG tablet 500 mg PO BID omeprazole 20 MG capsule,delayed release(DR/EC) 20 mg PO DAILY metoprolol tartrate 25 MG tablet 25 mg PO BID Referrals Follow up/Referrals: Darrel Shukla MD [Primary Care Provider] - See instructions Clinical Impressions Clinical Impression: Acute hyperkalemia, Weakness Discharge ED Provider: Cordell Hernández General Adult HPI General Chief complaint: Weakness Stated complaint: weakness Time Seen by Provider: 01/19/23 09:05 History of Present Illness HPI narrative: Patient is a 63-year-old male with past medical history of hypertension, insulin-dependent diabetes, COPD on oxygen, coronary artery disease status post stenting on antiplatelet therapy, restless leg syndrome, chronic leg pain, chronic back pain living at long-term care facility who presents emergency department for evaluation of leg pain. History is obtained by EMS review and patient at bedside. Over the last 3 months patient has had bilateral lower extremity pain distal to the mid hip bilaterally. It is significantly worse with ambulation causing him to have to sit in a wheelchair for a couple days afterwards. Staff has noticed cramping of his calves frequently. Patient is only intermittently compliant with his multi medical regimen at his long-term care facility. Related Data Home Medications Medication Instructions Recorded Confirmed donepezil 10 mg tablet 10 mg PO HS alzheimers 08/30/19 12/15/22 atorvastatin 40 mg tablet 40 mg PO HS Cholesterol 11/09/19 12/15/22 cyclobenzaprine 10 mg tablet 10 mg PO BID muscle spasms 11/09/19 12/15/22 levetiracetam 500 mg tablet 500 mg PO BID seizures 11/09/19 12/15/22 metop
--- NOTE | 2023-01-19 09:20 | PC.NURSE ---
PT MEDICATED PER EMAR, WARM BLANKET PROVIDED. CALL LIGHT WITHIN REACH. NO NEEDS AT THIS TIME
[2023-01-19 09:29] LABS: Basophils # 0.1 K/mm3 (0-0.2); Basophils % 0.4 % (0.1-2.0); Eosinophils # 0.8 K/mm3 (0.0-0.4); Eosinophils % 4.8 % (0.1-12.0); Hematocrit 40.1 % (42.0-52.0); Hemoglobin 12.7 g/dL (14.1-18.0); Lymphocytes # 1.7 K/mm3 (0.7-4.5); Lymphocytes % 10.2 % (10-50); Mean Corpuscular HGB Conc 31.8 g/dL (31.8-35.4); Mean Corpuscular Hemoglobin 29.8 pg (27.0-31.2); Mean Corpuscular Volume 93.6 fl (80-94); Mean Platelet Volume 8.1 fl (7.4-10.4); Monocytes % 6.1 % (1.7-9.3); Neutrophils # 13.2 K/mm3 (1.8-7.8); Neutrophils % 78.6 % (37.0-80.0); Platelet Count 247 K/mm3 (142-424); Red Blood Count 4.28 M/mm3 (4.60-6.20); Red Cell Distribution Width 13.3 % (11.5-17.5); White Blood Count 16.8 K/mm3 (4.8-10.8)
[2023-01-19 09:31] LABS: MANUAL DIFFERENTIAL MANUAL DIFFERENTIAL (MANUAL DIFF)
[2023-01-19 09:41] LABS: Eosinophils % 3 % (0-3); Lymphocytes % 11 % (10-50); Monocytes % 7 % (2-9); Neutrophils % 79 % (42-76); Platelet Estimate Normal; RBC Morphology Normal; Total Cells Counted 100
--- NOTE | 2023-01-19 09:42 | PC.NURSE ---
VASCULAR LAB AT BEDSIDE
[2023-01-19 09:45] LABS: Alanine Aminotransferase 25 U/L (12-78); Albumin Level 4.3 g/dl (3.5-5.0); Albumin/Globulin Ratio 1.3 (1.1-1.8); Alkaline Phosphatase 84 U/L (38-126); Anion Gap 11.3 mEq/L (5-15); Aspartate Amino Transferase 35 U/L (17-59); Bilirubin,Total 0.4 mg/dl (0.2-1.3); Blood Urea Nitrogen 32 mg/dl (9-20); Calcium 9.5 mg/dl (8.4-10.2); Carbon Dioxide 34 mmol/L (22.0-30.0); Chloride 101 mmol/L (98-107); Creatine Kinase 34 U/L (55-170); Creatinine Clearance Estimated 37 mL/min (50-200); Estimated Glomerular Filt Rate 38 ml/min (>60); GFR (African American) 46 ML/MIN (>60); Globulin 3.4 g/dL (1.3-3.2); Glucose 198 mg/dl (74-100); Sodium 140 mmol/L (136-145); Total Protein,Serum 7.7 g/dl (6.3-8.2)
[2023-01-19 09:48] LABS: Potassium 6.3 mmoL/L (3.5-5.1)
--- NOTE | 2023-01-19 09:55 | PC.NURSE ---
0948 CRITICAL K+ 6.3 RECEIVED FROM RUSS IN LAB. PT NAME AND R/V 0954 DR TREVIZO NOTIFIED OF CRITICAL K+ 6.3. ORDERS RECEIVED TO HAVE REPEAT K+ DRAWN, EKG, GIVE NS 1000ML BOLUS AND VERIFY 1 AMP D50, 5 UNITS INSULIN AND 2 GRAMS CALCIUM GLUCONATE WITH PHARMACY. R/V 1000 MEDS VERIFIED WITH JEREMY FROM PHARMACY
--- NOTE | 2023-01-19 10:13 | ECG_ITS ---
APPROVED REPORT Exam: Resting ECG HR:86 bpm ECG Measurements Heart Rate 86 AXES NH 171 P 22 QRSd 137 QRS 108 QT 374 T 57 QTc 417 Conclusion SINUS RHYTHM RIGHT AXIS DEVIATION [QRS AXIS > 100] RIGHT BUNDLE BRANCH BLOCK [120+ ms QRS DURATION, UPRIGHT V1, 40+ ms S IN I/aVL/V4/V5/V6] ABNORMAL ECG UNCONFIRMED REPORT Electronically signed by : Boom Coats MD 01/21/2023 21:28:13
[2023-01-19 10:32] LABS: Potassium 6.2 mmoL/L (3.5-5.1)
--- NOTE | 2023-01-19 10:34 | XR_ITS ---
FINAL REPORT CLINICAL HISTORY: weak, chronic shortness of breath COMPARISON: 05/04/2022 FINDINGS: A portable view of the chest was obtained. Cardiac and mediastinal silhouettes are within normal limits. The lungs are clear. There is no pleural effusion or pneumothorax. IMPRESSION: No acute process on this portable exam. Reviewed, Interpreted and Dictated by Louisa Parks MD Transcribed by Zeinab Muro Authenticated and [facility]
--- NOTE | 2023-01-19 10:43 | PC.NURSE ---
covid swab sent to lab
[2023-01-19 10:47] LABS: Coronavirus 19, PCR Not Detected (NotDetected); Influenza A, PCR Not Detected (NotDetected); Influenza B, PCR Not Detected (NotDetected)
--- NOTE | 2023-01-19 11:28 | PC.NURSE ---
rounded on pt nothing needed let pt know we were calling report and he should be up to the floor soon, call light at bs
--- NOTE | 2023-01-19 11:48 | PC.NURSE ---
REPORT GIVEN TO JODY WATERS
--- NOTE | 2023-01-19 12:16 | PC.NURSE ---
arrived to floor by w/c from ED
--- NOTE | 2023-01-19 12:27 | HMH.PHAINT1 ---
Pharmacy Intervention Comments: Patient's home medications reviewed and verified by external pharmacy. -Phillip Jimenez, Pharm Student
[2023-01-19 14:36] LABS: Anion Gap 8.3 mEq/L (5-15); Blood Urea Nitrogen 27 mg/dl (9-20); Calcium 9.2 mg/dl (8.4-10.2); Carbon Dioxide 31 mmol/L (22.0-30.0); Chloride 103 mmol/L (98-107); Creatinine Clearance Estimated 51 mL/min (50-200); Estimated Glomerular Filt Rate 41 ml/min (>60); GFR (African American) 49 ML/MIN (>60); Glucose 263 mg/dl (74-100); Sodium 136 mmol/L (136-145)
[2023-01-19 14:42] LABS: Potassium 6.3 mmoL/L (3.5-5.1)
--- NOTE | 2023-01-19 15:17 | EXP.HP ---
History of Present Illness *Admission Date: 01/19/23 *History of present illness: 63 year old male with a past medical history of hypertension, insulin-dependent diabetes, copd, cigarette nicotine dependence, cad s/p stenting on antiplatelet therapy, chronic leg and back pain, who is a resident of [facility] presented to the ED for evaluation for bilateral burning leg pain. 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 In the ED ABIs were normal and US arterial lower extremity did not reveal any significant obstructive peripheral vascular disease. Workup revealed K 6.2. He states that besides his leg pain he has no other symptoms. No palpitations or chest pain. No recent fever, chills, shortness of breath, abdominal pain, diarrhea and dysuriea. The patient hasn't had any recent changes to her medications and states that he has been eating and drinking well. Initial vitals: BP 209/73 - P 89 - RR 17 - T 98.5degrees F - SpO2 91% RA Initial workup: CBC with 16.8K WBCs CMP with K 6.2, Cr 1.8 (cr was 1.6 on 05/06/22) a1c 7.0 CK 34 covid/flu pcr studies are negative cxr- no acute process US arterial lower ext: no evidence of significant obstructive peripheral vascular disease LOUIS RLE 1.1 LLE 0.9 EKG: NSR HR 86, no peaked t waves or p wave flattening PFSH PFSH Disclaimer: The information contained in this section may have been updated after the patient was seen, as this information can be updated by other users. Medical History Back pain Carotid bruit COPD (chronic obstructive pulmonary disease) COPD (chronic obstructive pulmonary disease) Dementia Diabetes mellitus Diabetes mellitus with diabetic neuropathy Dyspnea on exertion Family history of asthma Glaucoma Mixed simple and mucopurulent chronic bronchitis NSTEMI (non-ST elevated myocardial infarction) Patient's noncompliance with dietary regimen Screening for lung cancer Seizure Shortness of breath Smoking greater than 30 pack years Tobacco abuse counseling Tobacco abuse disorder Tobacco dependence Surgical History History of cardiac cath History of colonoscopy Family History Other No significant family history Social History Smoking Status: Current every day smoker tobacco type: cigarettes packs per day: 1 alcohol intake: never substance use type: denies use current occupational status: disabled Travel in the last 8 weeks: None household members: other housing: fpc current occupational exposures/hazards: No caffeine: Yes Review of Systems Review of Systems Review of systems:: pertinent systems reviewed and negative unless documented below *Musculoskeletal Musculoskeletal: Reports back pain and Reports muscle weakness Comments: pain in bilateral lower extremities Meds Home Medications and Allergies Home Medications Medication Instructions Recorded Confirmed Type donepezil 10 mg tablet 10 mg PO HS Memory 08/30/19 01/19/23 History atorvastatin 40 mg tablet 40 mg PO HS Cholesterol 11/09/19 01/19/23 History cyclobenzaprine 10 mg tablet 10 mg PO BID muscle spasms 11/09/19 01/19/23 History levetiracetam 500 mg tablet 500 mg PO BID Seizures 11/09/19 01/19/23 History metoprolol tartrate 25 mg tablet 25 mg PO BID Blood Pressure 11/09/19 01/19/23 History omeprazole 20 mg capsule,delayed 20 mg PO DAILY Acid Reflux 11/09/19 01/19/23 History release acetaminophen 500 mg tablet 500 mg PO Q4HP PRN pain/fever 03/25/22 01/19/23 History docusate sodium 100 mg capsule 100 mg PO BID PRN Constipation 03/25/22 01/19/23 History insulin lispro protamine-lispro 40 unit SQ 1630 Diabetes 03/25/22 01/19/23 History 100 unit/mL (75-25) subcutaneous pen (Humalo
[2023-01-19 15:21] LABS: POC Glucose,Bedside 259 (70-110)
--- NOTE | 2023-01-19 17:46 | PC.NURSE ---
PT IS RESTING IN BED. ALERT AND ORIENTED X4. EATING AND DRINKING WELL. LUNG SOUNDS HAVE SCATTERED WHEEZES. ABDOMEN SOFT/ROUND WITH ACTIVE BOWEL SOUNDS. AMBULATES TO THE BATHROOM WITH WALKER. SCATTERED ABRASIONS NOTED TO BLE. WILL CONTINUE TO MONITOR.
[2023-01-19 19:38] LABS: Anion Gap 9.1 mEq/L (5-15); Blood Urea Nitrogen 27 mg/dl (9-20); Carbon Dioxide 30 mmol/L (22.0-30.0); Chloride 103 mmol/L (98-107); Creatinine Clearance Estimated 55 mL/min (50-200); Estimated Glomerular Filt Rate 44 ml/min (>60); GFR (African American) 53 ML/MIN (>60); Glucose 198 mg/dl (74-100); Potassium 5.1 mmoL/L (3.5-5.1); Sodium 137 mmol/L (136-145)
[2023-01-19 21:08] LABS: POC Glucose,Bedside 142 (70-110)
[2023-01-20] VITALS: BP 132/56; PULSE 60; PULSE 61; RESP 20; TEMP 37; O2SAT 91
--- NOTE | 2023-01-20 03:56 | PC.NURSE ---
NO ACUTE CHANGES THIS SHIFT. PT HAS RESTED WELL. HAS C/O PAIN X1 THIS SHIFT AND HAS BEEN MEDICATED PER SEP. SEIZURE PADS IN PLACE FOR PT SAFETY. PT'S POTASSIUM IS NOW 5.1. VSS. NO OTHER NEEDS VOICED AT THIS TIME.
[2023-01-20 04:00] VITALS: BP 163/79; PULSE 60; PULSE 72; RESP 20; TEMP 36.6; O2SAT 93; BMI 32.1
--- NOTE | 2023-01-20 05:37 | PC.NURSE ---
THIS RN IS AWARE THAT PT REFUSED A BATH THIS SHIFT WHEN ASKED X3 BY STAFF.
[2023-01-20 05:52] LABS: POC Glucose,Bedside 83 (70-110)
[2023-01-20 07:06] LABS: Basophils # 0.1 K/mm3 (0-0.2); Basophils % 0.3 % (0.1-2.0); Eosinophils # 0.6 K/mm3 (0.0-0.4); Hematocrit 34.5 % (42.0-52.0); Lymphocytes # 2.5 K/mm3 (0.7-4.5); Lymphocytes % 18.3 % (10-50); Mean Corpuscular HGB Conc 32.9 g/dL (31.8-35.4); Mean Corpuscular Hemoglobin 30.3 pg (27.0-31.2); Mean Corpuscular Volume 92.2 fl (80-94); Mean Platelet Volume 7.5 fl (7.4-10.4); Monocytes # 0.9 K/mm3 (0.1-1.0); Monocytes % 6.3 % (1.7-9.3); Neutrophils # 9.8 K/mm3 (1.8-7.8); Neutrophils % 71.1 % (37.0-80.0); Platelet Count 224 K/mm3 (142-424); Red Blood Count 3.74 M/mm3 (4.60-6.20); Red Cell Distribution Width 13.3 % (11.5-17.5); White Blood Count 13.8 K/mm3 (4.8-10.8)
[2023-01-20 07:18] LABS: Anion Gap 7.4 mEq/L (5-15); Calcium 9.2 mg/dl (8.4-10.2); Carbon Dioxide 32 mmol/L (22.0-30.0); Chloride 104 mmol/L (98-107); Glucose 91 mg/dl (74-100); Potassium 4.4 mmoL/L (3.5-5.1); Sodium 139 mmol/L (136-145)
[2023-01-20 07:23] LABS: Blood Urea Nitrogen 25 mg/dl (9-20)
[2023-01-20 07:24] LABS: Creatinine Clearance Estimated 51 mL/min (50-200); Estimated Glomerular Filt Rate 41 ml/min (>60); GFR (African American) 49 ML/MIN (>60)
[2023-01-20 07:59] LABS: Hemoglobin 11.4 g/dL (14.1-18.0)
[2023-01-20 08:00] VITALS: BP 162/73; PULSE 83; PULSE 90; RESP 18; TEMP 36.8; O2SAT 92
--- NOTE | 2023-01-20 08:20 | SW/DCPLANNER ---
Addendum entered by Tabby Giles 01/20/23 14:38: I have arranged [facility] [employer] for this patient. Addendum entered by Tabby Giles 01/20/23 12:00: I have updated Aliya monson/ Autumn Melara that patient will discharge today. I will arrange [employer] once patient is ready for discharge. Original Note: This patient currently resides at [facility] level of care. I will continue to follow up iona/ Aliya at [facility] until patient is ready for discharge. Discharge date is unknown at this time.
[2023-01-20 08:25] LABS: POC Glucose,Bedside 116 (70-110)
--- NOTE | 2023-01-20 09:50 | HMH.OTEV ---
OT Inpatient Evaluation Rehab OT IP Evaluation Start: 01/19/23 16:07 Freq: ONCE Status: Active Protocol: Document 01/20/23 09:45 [facility] (Rec: 01/20/23 09:50 [facility] [id number]) Rehab OT IP Assessment Subjective History Pt oriented x 3 on arrival. Pt agreeable to engage in therapy evaluation. Pt is a 63 year old male with a past medical history of hypertension, insulin- dependent diabetes, copd, cigarette nicotine dependence, cad s/p stenting on antiplatelet therapy, chronic leg and back pain, who is a resident of [facility] presented to the ED for evaluation for bilateral burning leg pain. Pt admitted on 01/19/23 due to weakness and hyperkalemia. Prior to being at the hospital, he claims he was independent with all ADLs such as feeding, bathing, and dressing. However, he was dependent upon staff for completion of IADLs . Pt did use a cane during ambulation. Subjective I feel better than I did yesterday. Objective Patient Orientation Person,Place,Birthday Upper Extremity Gross ROM WFL Bed Mobility bed mobility-scooting,bed mobility - supine/sit,bed mobility - rolling Assist Level Supervision/Stand by Transfer Training Sit/Stand Transfer Assist Level Supervision/Stand by Chair Transfer Ability Supervision/Stand by Chair Transfer Technique Sit to/from Ambulatory Chair Transfer Assistive Devices Rolling Walker Lower Body Dressing Ability Standby Assistance Rehab OT IP prob,goals,plan Problems Date of Evaluation: 01/20/23 Rehab Potential Rehab Potential Innapropriate for Skilled Therapy Discharge Plan OT Discharge Plan At this time, pt appears to be at his baseline with functional transfers and ADL independence. Pt can return to [facility] once medically
--- NOTE | 2023-01-20 10:57 | HMH.PTEV ---
Physical Therapy Evaluation Rehab PT IP Evaluation Start: 01/19/23 16:07 Freq: ONCE Status: Active Protocol: Document 01/20/23 09:30 [facility] (Rec: 01/20/23 10:57 [facility] [id number]) Subjective/History History History 63 yowm adm to [facility] with general weakness and hyperkalemia. He reports he lives at a local SNF, he uses a RW for ambulation, and he is generally able to perform all ADLs independently. Subjective Subjective Pt has no c/o this am, I feel a lot better than when I came in. Rehab PT IP Eval Objective Appearance Patient Behavior Appropriate Patient Orientation Person,Place,Time Difficulty following instructions none Speech Pattern Clear Ambulation Patient Able to Ambulate Yes Ambulation Observation IP General Gait Pattern Observation No Deviations/Normal Ambulation Distance (feet) 50 Ambulation Assistive Device Rolling Walker Ambulation Ability Independent Balance Ability to Arise Able, uses arms to help Sitting Balance Steady, safe Standing Balance Steady, wide stance Dynamic Sitting Balance Ability Good Dynamic Standing Balance Ability Good Transfers Bed Transfer Ability Independent Chair Transfer Ability Independent Sit to Stand Bed Transfer Ability Independent Sit to Stand Chair Transfer Ability Independent ROM All Extremities PT ROM Status WFL MMT All Extremities PT MMT WFL Rehab PT IP prob,goals,plan Problems Date of Evaluation: 01/20/23 Discharge Plan PT Discharge Plan Pt is appropriate to return to SNF once medically stable and he appears to be at baseline for all mobility at this time. G -code Required No Eval Complexity Eval Charge Codes 79675 - High Complexity PHYSICIAN CERTIFICATION: I certify the specified therapy services for Mayur Ridley are required, authorized, and reviewed every 30 days.
[2023-01-20 11:34] VITALS: BP 150/71; PULSE 69; RESP 18; TEMP 36.9; O2SAT 94
--- NOTE | 2023-01-20 12:06 | EXP.DC.SUM ---
General Admission date:: 01/19/23 Discharge date: 01/20/23 HPI HPI HPI: 63 year old male with a past medical history of hypertension, insulin-dependent diabetes, copd, cigarette nicotine dependence, cad s/p stenting on antiplatelet therapy, chronic leg and back pain, who is a resident of [facility] presented to the ED for evaluation for bilateral burning leg pain. 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 In the ED ABIs were normal and US arterial lower extremity did not reveal any significant obstructive peripheral vascular disease. Workup revealed K 6.2. He states that besides his leg pain he has no other symptoms. No palpitations or chest pain. No recent fever, chills, shortness of breath, abdominal pain, diarrhea and dysuriea. The patient hasn't had any recent changes to her medications and states that he has been eating and drinking well. Initial vitals: BP 209/73 - P 89 - RR 17 - T 98.5degrees F - SpO2 91% RA Initial workup: CBC with 16.8K WBCs CMP with K 6.2, Cr 1.8 (cr was 1.6 on 05/06/22) a1c 7.0 CK 34 covid/flu pcr studies are negative cxr- no acute process US arterial lower ext: no evidence of significant obstructive peripheral vascular disease LOUIS RLE 1.1 LLE 0.9 EKG: NSR HR 86, no peaked t waves or p wave flattening Hospital Course Hospital Course Hospital Course: #Hyperkalemia #Bilateral leg pain #Hypertensive urgency #generalized weakness EKG was without peaked t waves or p wave flattening. His only new symptom was weakness which subsided after we corrected his potassium with lokelma and insulin. on day of discharge k was 4.4 It's unclear what caused the patient's hyperkalemia. Possibly could be medication induced. I discontinued his losartan and started norvasc. He will need a BMP to follow up on his potassium level in 3 days. He will be discharging back to [facility]. 35 minutes were spent on this discharge including face to face time with the patient. Exam Data for Last 24 hours Vital signs and Labs for Last 24 Hours: Temp Pulse Resp BP Pulse Ox O2 Del Method 98.5 F 69 18 150/71 H 94 L Room Air 01/20/23 11:34 01/20/23 11:34 01/20/23 11:34 01/20/23 11:34 01/20/23 11:34 01/20/23 10:58 Laboratory Results - last 24 hr 01/19/23 14:01: Sodium 136, Potassium 6.3 H*, Chloride 103, Carbon Dioxide 31 H, Anion Gap 8.3, BUN 27 H, Creatinine 1.70 H, Estimated Creat Clear 51, Estimated GFR 41 L, Est GFR ( Amer) 49 L, Glucose 263 H D, Calcium 9.2 01/19/23 15:06: POC Glucose 259 H 01/19/23 19:19: Sodium 137, Potassium 5.1, Chloride 103, Carbon Dioxide 30, Anion Gap 9.1, BUN 27 H, Creatinine 1.60 H, Estimated Creat Clear 55, Estimated GFR 44 L, Est GFR ( Amer) 53 L, Glucose 198 H D, Calcium 9.0 01/19/23 20:59: POC Glucose 142 H 01/20/23 05:44: POC Glucose 83 01/20/23 06:32: WBC 13.8 H, RBC 3.74 L, Hgb 11.4 L D, Hct 34.5 L, MCV 92.2, MCH 30.3, MCHC 32.9, RDW 13.3, Plt Count 224, MPV 7.5, Neut % (Auto) 71.1, Lymph % (Auto) 18.3, Stoddard % (Auto) 6.3, Eos % (Auto) 4.0, Baso % (Auto) 0.3, Neut # (Auto) 9.8 H, Lymph # (Auto) 2.5, Stoddard # (Auto) 0.9, Eos # (Auto) 0.6 H, Baso # (Auto) 0.1, Sodium 139, Potassium 4.4, Chloride 104, Carbon Dioxide 32 H, Anion Gap 7.4, BUN 25 H, Creatinine 1.70 H, Estimated Creat Clear 51, Estimated GFR 41 L, Est GFR ( Amer) 49 L, Glucose 91 D, Calcium 9.2 01/20/23 08:15: POC Glucose 116 H I & O for Last 24 hours: Intake & Output 01/17/23 01/18/23 01/19/23 01/20/23 23:59 23:59 23:59 23:59 Intake Total 720 / 720 480 / 480 Output Total 200 / 200 0 / 0 Balance 520 / 520 480 / 480 Weight 82.639 kg 82.418 kg Results Data Completed and Pending Labs on day of discharge: Labs from last 24 hours 01/20/23 01/20/23 01/20/23 08:15 06:32 05:44 WBC 13.8 H RBC 3.74 L Hgb 11.4 L D Hct 34.5 L MCV 92.2 MCH 30.3 MCHC 32.9
== END 2023-01-20 15:31 | DRG 641 ==
LOC: ER 10:40 → 2ND 11:01
PROVIDERS: Admitting Provider Internal Medicine; Emergency Provider Emergency Medicine; PCP Emergency Medicine; Visit Provider Internal Medicine
DX: E87.5 Hyperkalemia (principal); I16.0 Hypertensive urgency; J44.9 Chronic obstructive pulmonary disease, unspecified; I25.119 Atherosclerotic heart disease of native coronary artery with unspecified angina pectoris; Z95.5 Presence of coronary angioplasty implant and graft; Z79.4 Long term (current) use of insulin; I25.2 Old myocardial infarction; Z91.199 Patient's noncompliance with other medical treatment and regimen due to unspecified reason; F03.90 Unspecified dementia, unspecified severity, without behavioral disturbance, psychotic disturbance, mood disturbance, and anxiety; F17.210 Nicotine dependence, cigarettes, uncomplicated; E11.40 Type 2 diabetes mellitus with diabetic neuropathy, unspecified; G89.29 Other chronic pain; E11.22 Type 2 diabetes mellitus with diabetic chronic kidney disease; N18.30 Chronic kidney disease, stage 3 unspecified; M79.606 Pain in leg, unspecified
CPT/HCPCS: 36415; 71045; 80048; 80053; 82550; 82962; 83036; 84132; 85007; 85025; 87636; 93005; 93923; 97163; 97165; 99291

== ENCOUNTER → 2023-01-26 09:01 | Outpatient (POV) | payer MEDICAID, SELFPAY ==
[2023-01-26 09:18] VITALS: BP 139/65; PULSE 68; RESP 20; O2SAT 98; BMI 30.1
--- NOTE | 2023-01-26 09:35 | EXP.PAIN.SOA ---
[facility] Pain Management SOAP Note Subjective:: Patient is a pleasant 63-year-old male who presents today for follow-up. We are currently treating the patient for degenerative disc disease of lumbar spine with lumbar radiculopathy symptoms, lumbar spondylosis. Today he rates his pain an 8 out of 10. Patient denies any new trauma or injury. Patient denies any change to location or type of pain he experiences. He does state that he is having worsening pain in his low back and bilateral lower extremities. He does describe this as an aching, throbbing sensation that is worse with increased activity. He does state it interferes with his ability perform activities of daily living such as cooking and cleaning. Patient has previously had lumbar epidural injections that provided upwards of 80% improvement lasting 3 months. He is interested in repeating these injections at today's visit. His Kyler is [id number]. Its been reviewed and appropriate. Review of Systems: General: No recent weight changes, no fever, no sleep disturbances Respiratory: No cough, no shortness of air, no recurring pulmonary infections Cardiovascular/peripheral vascular: No chest pain, no palpitations, no edema, no shortness of breath Gastrointestinal: No new onset incontinence, normal bowel movements reported Genitourinary: No new onset incontinence Musculoskeletal: Low back pain, bilateral leg pain Psychiatric: [Normal mood/affect] Neurological: [Denies weakness in extremities], [denies balance issues] Objective:: Physical Exam: General: Alert and oriented x3, no acute distress, pleasant and cooperative Lungs: Respirations even and unlabored, symmetrical chest expansion Eyes: PERRL Musculoskeletal: Flexion and extension of lumbar [spine] somewhat guarded secondary to pain, [antalgic gait noted] Neurological: Speech clear, no gross sensory deficit Assessment:: Degenerative disc disease of lumbar spine with lumbar radiculopathy symptoms, lumbar spondylosis Plan:: Patient is experiencing worsening pain in his low back and legs with limited range of motion. I have discussed with the patient that he may benefit from a lumbar epidural steroid injection. Risk and benefits were discussed with the patient and he would like to proceed forward with this plan of care. Patient is currently on Plavix and will need to come off this medication 7 days prior to his injection. We will contact his doctor to confirm this is not an issue. Patient will be scheduled for an LESI at L4-L5. Patient has been instructed to contact the clinic with any concerns before the next appointment. Dr. Villarreal has reviewed this note and agrees with this plan of care. This note was dictated using voice recognition software and make contain errors or omissions. [facility] Disclaimer: The information contained in this section may have been updated after the patient was seen, as this information can be updated by other users. Medical History (Updated 01/24/23 @ 00:00 by Alejandro Hager) Back pain Carotid bruit COPD (chronic obstructive pulmonary disease) COPD (chronic obstructive pulmonary disease) Dementia Diabetes mellitus Diabetes mellitus with diabetic neuropathy Dyspnea on exertion Family history of asthma Glaucoma Mixed simple and mucopurulent chronic bronchitis NSTEMI (non-ST elevated myocardial infarction) Patient's noncompliance with dietary regimen Screening for lung cancer Seizure Shortness of breath Smoking greater than 30 pack years Tobacco abuse counseling Tobacco abuse disorder Tobacco dependence Surgical History History of cardiac cath History of colonoscopy Family History Other No significant family history Social History Smoking Status: Current every day smoker tobacco type: cigarettes packs per day: 1 alcohol intake: never substance use ty
== END ==
PROVIDERS: PCP Emergency Medicine; Visit Provider Nurse Practitioner Family
DX: M51.16 Intervertebral disc disorders with radiculopathy, lumbar region (principal); M47.26 Other spondylosis with radiculopathy, lumbar region
CPT/HCPCS: 99212; G0463

== ENCOUNTER 2023-02-13 08:46 | Day surgery (SDC) | payer MEDICAID, SELFPAY ==
[2023-02-13 08:57] VITALS: BP 150/70; PULSE 71; RESP 18; TEMP 36.2; O2SAT 92; BMI 30.1
--- NOTE | 2023-02-13 09:09 | EXP.PAIN.PRO ---
Procedure Date: 02/13/23 Time: 09:03 Anesthesiologist:: Nomi Navarro CRNA Complications:: None Pre-procedure Diagnosis:: Degenerative disc disease lumbar spine multilevels. Lumbar radiculopathy. Lumbar spondylosis. Post-procedure Diagnosis:: Same. Indications for Procedure:: Patient is a very pleasant 63-year-old male that comes our clinic today for lumbar epidural steroid injection at L4-5 level. Patient is had this injection in the past with significant proved in terms of her overall low back pain as well as bilateral hip and leg radicular symptoms. He rates his pain today 02/12 Procedure Details:: Procedure: Lumbar epidural steroid injection under fluoroscopy Informed consent was obtained and the risks and benefits of the procedure were explained to the patient. The patient was taken to the procedure room and noninvasive monitors placed, including noninvasive blood pressure cuff and pulse oximeter. The back was viewed using C-arm Fluoroscopy and prepped using Chloraprep as a cleansing solution and the L4-L5 interspace was palpated. Skin and subcutaneous tissues were anesthetized using lidocaine 1.5% and a 25-gauge needle. After this, an 18-gauge Touhy epidural needle was placed into the L4-L5 interspace and advanced using fluoroscopic guidance and loss of resistance to air until the epidural space was encountered. After confirmation of needle placement in the epidural space, with dye, a solution containing normal saline, 3 mL and Depo-Medrol 80 mg were incrementally injected into the lumbar epidural space. The patient tolerated the procedure well with no complications. The patient was observed in the Pain Clinic and then discharged home neurologically intact. Plan and Disposition:: Patient was discharged without incident.
[2023-02-13 09:15] VITALS: BP 160/66; PULSE 73; RESP 18; O2SAT 92
[2023-02-13 09:19] VITALS: BP 185/77; PULSE 78; RESP 18; O2SAT 94
[2023-02-13 09:20] VITALS: BP 185/77; PULSE 78; RESP 18; O2SAT 94
== END 2023-02-13 09:15 | disposition home or self-care (01) ==
PROVIDERS: PCP Emergency Medicine; Visit Provider Nurse Anesthetist, Certified Registered
DX: M51.16 Intervertebral disc disorders with radiculopathy, lumbar region (principal); M47.26 Other spondylosis with radiculopathy, lumbar region
CPT/HCPCS: 62323; J1040

== ENCOUNTER → 2023-03-02 14:38 | Outpatient (CLI) | payer MEDICAID, SELFPAY ==
--- NOTE | 2023-03-02 14:39 | CT_ITS ---
FINAL REPORT CLINICAL HISTORY: lung cancer screening, smoker for 50 years currently smokes 6 cigs per day, copd, mother had lung cancer COMPARISON: 12/05/2021 FINDINGS: CT CHEST LOW DOSE SCREENING HISTORY: Screening exam for lung cancer. Current smoker, 50 pack year smoking history DOSE: CTDIvol: 2.9 mGy, DLP: 100.2 none mGy*cm COMPARISON: 12/05/2021. TECHNIQUE: Axial CT without IV contrast administration using low dose protocol FINDINGS: There is an irregular nodule, new, in the posterior right upper lobe, measuring 9 mm and best seen on axial image #27 series 4. There is a separate focus in the inferior posterior right upper lobe measuring 1 cm, best seen on axial image #36 of series 4. The small nodules previously seen on the prior CT of 2021 in the right lower lobe and left lower lobe are not seen on today's exam. No pleural or pericardial effusion is seen . No adenopathy or mass lesion is present . IMPRESSION: 2 new irregular nodular opacities are noted in the right upper lobe as described, the largest measuring 1 cm in diameter. The previous nodules in the right lower lobe noted December 2021 are not clearly seen on today's exam. LUNG RADS CATEGORY 0 RECOMMENDATION: 1 month LDCT follow up, referral to pulmonary nodule clinic. Reviewed, Interpreted and Dictated by Jorgito Gutierrez MD Transcribed by Xuan Goodwin Authenticated and [facility]
== END ==
PROVIDERS: PCP Emergency Medicine; Visit Provider Internal Medicine Pulmonary Disease
DX: Z87.891 Personal history of nicotine dependence (principal); Z12.2 Encounter for screening for malignant neoplasm of respiratory organs
CPT/HCPCS: 71271

== ENCOUNTER → 2023-03-04 08:32 | Outpatient (POV) | payer MEDICAID, SELFPAY ==
[2023-03-04 09:41] VITALS: BP 152/73; PULSE 67; RESP 18; O2SAT 97
--- NOTE | 2023-03-04 10:06 | EXP.PAIN.SOA ---
[facility] Pain Management SOAP Note Subjective:: Patient is a pleasant 63-year-old male who presents today for follow-up of lumbar epidural steroid injection L4-L5 on 02/13/2023. We are currently treating the patient for degenerative disc disease of lumbar spine with lumbar radiculopathy symptoms, lumbar spondylosis. Today he rates his pain a 8 out of 10. Patient denies any new trauma or injury. He does state that he has had at least 50% improvement following this injection however he has started a experiencing worsening pain in his low back along the right side and into his right hip. Patient describes this as a burning, aching sensation that is worse with increased activity. He states it is often aggravated by certain movements such as prolonged sitting or standing. He does state the pain interferes with his ability perform activities of daily living. Patient is a resident at [facility]. Patient's Kyler is [id number]. Its been reviewed and appropriate. Review of Systems: General: No recent weight changes, no fever, no sleep disturbances Respiratory: No cough, no shortness of air, no recurring pulmonary infections Cardiovascular/peripheral vascular: No chest pain, no palpitations, no edema, no shortness of breath Gastrointestinal: No new onset incontinence, normal bowel movements reported Genitourinary: No new onset incontinence Musculoskeletal: Low back pain, right hip pain Psychiatric: [Normal mood/affect] Neurological: [Denies weakness in extremities], [denies balance issues] Objective:: Physical Exam: General: Alert and oriented x3, no acute distress, pleasant and cooperative Lungs: Respirations even and unlabored, symmetrical chest expansion Eyes: PERRL Musculoskeletal: Flexion and extension of lumbar [spine] somewhat guarded secondary to pain, [antalgic gait noted] extreme point tenderness along right SI with positive right Vicky's, Soumya's, Gaenslen's, compression and distraction exam Neurological: Speech clear, no gross sensory deficit Assessment:: Degenerative disc disease of lumbar spine with lumbar radiculopathy symptoms, lumbar spondylosis right-sided sacroiliitis Plan:: Patient is experiencing worsening pain in his low back along the right side and into his right hip. Patient had limited range of motion of his lumbar spine along with extreme point tenderness at his right SI and a positive right Vicky's, Soumya's, Gaenslen's, compression and distraction exam during today's visit. I have discussed with the patient that he may benefit from a right SI injection. Risk and benefits were explained to the patient and he would like to proceed forward with this plan of care. Patient will be scheduled for a right SI injection. Patient has been instructed to contact the clinic with any concerns before the next appointment. Dr. Villarreal has reviewed this note and agrees with this plan of care. This note was dictated using voice recognition software and make contain errors or omissions. [facility] Disclaimer: The information contained in this section may have been updated after the patient was seen, as this information can be updated by other users. Medical History Back pain Carotid bruit COPD (chronic obstructive pulmonary disease) COPD (chronic obstructive pulmonary disease) Dementia Diabetes mellitus Diabetes mellitus with diabetic neuropathy Dyspnea on exertion Family history of asthma Glaucoma Mixed simple and mucopurulent chronic bronchitis NSTEMI (non-ST elevated myocardial infarction) Patient's noncompliance with dietary regimen Screening for lung cancer Seizure Shortness of breath Smoking greater than 30 pack years Tobacco abuse counseling Tobacco abuse disorder Tobacco dependence Surgical History History of cardiac cath History of colonoscopy Family History Other No sig
== END ==
PROVIDERS: Visit Provider Nurse Practitioner Family
DX: M51.16 Intervertebral disc disorders with radiculopathy, lumbar region (principal); M47.26 Other spondylosis with radiculopathy, lumbar region; M46.1 Sacroiliitis, not elsewhere classified
CPT/HCPCS: 99212; G0463

== ENCOUNTER 2023-03-17 07:19 | Day surgery (SDC) | payer MEDICAID, SELFPAY ==
[2023-03-17 08:09] VITALS: BP 172/75; PULSE 73; RESP 18; TEMP 36.6; O2SAT 91; BMI 30.1
[2023-03-17 08:18] VITALS: BP 171/76; PULSE 78; RESP 18; O2SAT 94
[2023-03-17 08:19] VITALS: BP 171/76; PULSE 70; RESP 18; O2SAT 95
--- NOTE | 2023-03-17 08:23 | EXP.PAIN.PRO ---
Procedure Date: 03/17/23 Time: 08:15 Anesthesiologist:: Nomi Navarro CRNA Complications:: None Pre-procedure Diagnosis:: Right sacroiliitis Post-procedure Diagnosis:: Same Indications for Procedure:: Patient is a pleasant 63-year-old male comes our clinic today for right sacroiliac joint injection. He has extreme point tenderness upon examination over the right sacroiliac joint. He is responded very well to right sacroiliac joint injections in the past. He rates his pain today 8/10. Procedure Details:: Procedure: Right sacroliliac joint injection under fluoroscopy Informed consent was obtained and the risk and benefits of the procedure were explained to the patient.~ The patient was taken to the procedure room and noninvasive monitors were placed including noninvasive blood pressure cuff and pulse oximeter.~ The patient was placed prone on the procedure table.~ The~ right hip was cleansed using Betadine as a cleansing solution.~ C-arm fluorosocpy was used to view the right SI joint.~ The skin and subcutaneous tissues were anesthetized using Lidocaine 1.5% and a 25-gauge needle.~ After this, a 22-gauge spinal needle was inserted under fluoroscopic guidance into the inferior aspect of the right SI joint.~ Omnipaque dye was injected and a good spread was seen throughout the joint.~ After this, approximately 5 mL of bupivacaine 0.25% and Depo-Medrol 40 mg was incrementally injected into the sacroiliac joint.~ The patient tolerated the procedure well with no complications.~ The patient was observed in the Pain Clinic, then discharged home neurologically intact.~ Plan and Disposition:: Same.
[2023-03-17 08:34] VITALS: BP 192/75; PULSE 72; RESP 20
== END 2023-03-17 08:36 | disposition home or self-care (01) ==
PROVIDERS: PCP Emergency Medicine; Visit Provider Nurse Anesthetist, Certified Registered
DX: M46.1 Sacroiliitis, not elsewhere classified (principal)
CPT/HCPCS: 27096; G0260; J1040

== ENCOUNTER 2023-03-26 10:58 | Day surgery (SDC) | payer MEDICAID, SELFPAY ==
[2023-03-26 11:08] VITALS: BP 179/71; PULSE 67; RESP 18; TEMP 36.1; O2SAT 95
[2023-03-26 11:48] VITALS: O2SAT 95
[2023-03-26 12:23] VITALS: BP 171/80; PULSE 61; RESP 16; O2SAT 94
[2023-03-26 12:33] VITALS: BP 181/76; PULSE 61; RESP 16; O2SAT 93
[2023-03-26 12:43] VITALS: BP 175/84; PULSE 69; RESP 18; O2SAT 93
[2023-03-26 12:53] VITALS: BP 168/71; PULSE 58; RESP 18; O2SAT 94
--- NOTE | 2023-03-26 13:00 | SUR.PHASEII ---
Checked sugar on pt. 67. Gave 2 orange juice with sugar to pt. Will reassess.
--- NOTE | 2023-03-26 13:11 | SUR.PHASEII ---
Called report to Nichelle at [place]. Stated someone would contact them with a new appointment for colonoscopy. Email sent to Roya VERA. Provided pt with lunch tray as well. Pt currently eating. Will recheck sugar after he is done.
[2023-03-26 13:39] LABS: POC Glucose,Bedside 63 (70-110)
[2023-03-26 13:39] LABS: POC Glucose,Bedside 132 (70-110)
[2023-03-27 07:35] LABS: POC Glucose,Bedside 75 (70-110)
== END 2023-03-26 13:25 | disposition home or self-care (01) ==
PROVIDERS: PCP Emergency Medicine; Visit Provider Internal Medicine Gastroenterology
PROC: 0DJD8ZZ Inspection of Lower Intestinal Tract, Via Natural or Artificial Opening Endoscopic (ICD-10-PCS; CPT 45378; principal; 2023-03-26 11:00)
DX: Z53.09 Procedure and treatment not carried out because of other contraindication (principal); E11.649 Type 2 diabetes mellitus with hypoglycemia without coma; R19.5 Other fecal abnormalities
CPT/HCPCS: 45378; 82962

== ENCOUNTER → 2023-04-01 08:35 | Outpatient (POV) | payer MEDICAID, SELFPAY ==
--- NOTE | 2023-04-01 09:12 | EXP.PAIN.SOA ---
[facility] Pain Management SOAP Note Subjective:: Patient is a pleasant 63-year-old male who presents today for follow-up of right SI injection on 03/17/2023. We are currently treating the patient for degenerative disc disease of lumbar spine with lumbar radiculopathy symptoms, lumbar spondylosis, sacroiliitis. Today he rates his pain a 3 out of 10. Patient denies any new trauma or injury. He states that he has had at least 80% improvement following this injection and that it is still providing good relief. Patient states he is able to move around easier with decreased pain symptoms. Patient does also state today that his back is still continuing to do well from his last lumbar epidural steroid injection back in February. Patient's Kyler is [id number]. Its been reviewed and appropriate. Review of Systems: General: No recent weight changes, no fever, no sleep disturbances Respiratory: No cough, no shortness of air, no recurring pulmonary infections Cardiovascular/peripheral vascular: No chest pain, no palpitations, no edema, no shortness of breath Gastrointestinal: No new onset incontinence, normal bowel movements reported Genitourinary: No new onset incontinence Musculoskeletal: Low back pain Psychiatric: [Normal mood/affect] Neurological: [Denies weakness in extremities], [denies balance issues] Objective:: Physical Exam: General: Alert and oriented x3, no acute distress, pleasant and cooperative Lungs: Respirations even and unlabored, symmetrical chest expansion Eyes: PERRL Musculoskeletal: Flexion and extension of lumbar [spine] somewhat guarded secondary to pain, [antalgic gait noted] Neurological: Speech clear, no gross sensory deficit Assessment:: Degenerative disc disease of lumbar spine with lumbar radiculopathy symptoms, lumbar spondylosis, sacroiliitis Plan:: Patient has had significant improvement following his right SI injection and does not require any additional injective therapy at this time. I have counseled the patient that he can call our office for his next scheduled follow-up and when he feels like he is starting to experience more pain and needs injective therapy. Patient has been instructed to contact the clinic with any concerns before the next appointment. Dr. Villarreal has reviewed this note and agrees with this plan of care. This note was dictated using voice recognition software and make contain errors or omissions. [facility] Disclaimer: The information contained in this section may have been updated after the patient was seen, as this information can be updated by other users. Medical History Back pain Carotid bruit COPD (chronic obstructive pulmonary disease) COPD (chronic obstructive pulmonary disease) Dementia Diabetes mellitus Diabetes mellitus with diabetic neuropathy Dyspnea on exertion Family history of asthma Glaucoma Lung nodule Mixed simple and mucopurulent chronic bronchitis NSTEMI (non-ST elevated myocardial infarction) Patient's noncompliance with dietary regimen Screening for lung cancer Seizure Shortness of breath Smoking greater than 30 pack years Tobacco abuse counseling Tobacco abuse disorder Tobacco dependence Surgical History History of cardiac cath History of colonoscopy Family History Other No significant family history Social History Smoking Status: Current every day smoker tobacco type: cigarettes packs per day: 1 alcohol intake: never substance use type: denies use current occupational status: other Travel in the last 8 weeks: None household members: other housing: [facility] current occupational exposures/hazards: No caffeine: Yes
[2023-04-01 11:06] VITALS: BP 154/69; PULSE 66; RESP 20; O2SAT 95; BMI 30.1
== END ==
PROVIDERS: PCP Emergency Medicine; Visit Provider Nurse Practitioner Family
DX: M51.16 Intervertebral disc disorders with radiculopathy, lumbar region (principal); M47.26 Other spondylosis with radiculopathy, lumbar region; M46.1 Sacroiliitis, not elsewhere classified
CPT/HCPCS: 99212; G0463

== ENCOUNTER → 2023-04-10 13:31 | Outpatient (CLI) | payer MEDICAID, SELFPAY ==
[2023-04-10 15:35] LABS: Alanine Aminotransferase 27 U/L (12-78); Albumin Level 3.8 g/dl (3.5-5.0); Albumin/Globulin Ratio 1.3 (1.1-1.8); Alkaline Phosphatase 82 U/L (38-126); Anion Gap 9.7 mEq/L (5-15); Aspartate Amino Transferase 26 U/L (17-59); Bilirubin,Total 0.2 mg/dl (0.2-1.3); Blood Urea Nitrogen 30 mg/dl (9-20); Calcium 9.2 mg/dl (8.4-10.2); Carbon Dioxide 35 mmol/L (22.0-30.0); Chloride 101 mmol/L (98-107); Estimated Glomerular Filt Rate 44 ml/min (>60); GFR (African American) 53 ML/MIN (>60); Glucose 171 mg/dl (74-100); Potassium 4.7 mmoL/L (3.5-5.1); Sodium 141 mmol/L (136-145); Total Protein,Serum 6.8 g/dl (6.3-8.2)
[2023-04-10 15:52] LABS: Basophils # 0.1 K/mm3 (0-0.2); Basophils % 0.5 % (0.1-2.0); Eosinophils # 0.5 K/mm3 (0.0-0.4); Eosinophils % 4.7 % (0.1-12.0); Hematocrit 40.3 % (42.0-52.0); Lymphocytes # 3.1 K/mm3 (0.7-4.5); Lymphocytes % 28.9 % (10-50); Mean Corpuscular HGB Conc 32.2 g/dL (31.8-35.4); Mean Corpuscular Hemoglobin 30.4 pg (27.0-31.2); Mean Corpuscular Volume 94.4 fl (80-94); Mean Platelet Volume 8.5 fl (7.4-10.4); Monocytes # 0.8 K/mm3 (0.1-1.0); Monocytes % 7.1 % (1.7-9.3); Neutrophils # 6.3 K/mm3 (1.8-7.8); Neutrophils % 58.9 % (37.0-80.0); Platelet Count 263 K/mm3 (142-424); Red Blood Count 4.26 M/mm3 (4.60-6.20); Red Cell Distribution Width 13.8 % (11.5-17.5); White Blood Count 10.8 K/mm3 (4.8-10.8)
[2023-04-10 18:39] LABS: Microscopic, Urine URINE MICROSCOPIC (MICROSCOPIC)
[2023-04-10 18:57] LABS: Appearance,Urine CLEAR (Clear); Bilirubin,Urine Negative (Negative); Blood, Urine Negative (Negative); Color,Urine YELLOW (Yellow); Glucose,Urine (UA) Negative (Negative); Ketones,Urine Negative (Negative); Leukocyte Esterase,Urine Negative (Negative); Nitrate,Urine Negative (Negative); Protein,Urine 3+ (Negative); Specific Gravity, Urine 1.025 (1.005-1.030); Urobilinogen,Urine 0.2 EU/dl (0.2)
[2023-04-10 20:17] LABS: RBC,Urine Occasional #/hpf (0-3)
== END ==
PROVIDERS: PCP Emergency Medicine; Visit Provider Emergency Medicine
DX: R06.09 Other forms of dyspnea (principal); I25.10 Atherosclerotic heart disease of native coronary artery without angina pectoris; Z79.899 Other long term (current) drug therapy
CPT/HCPCS: 80053; 81001; 85025

== ENCOUNTER 2023-04-16 13:48 | Emergency (ER) | payer MEDICAID, SELFPAY ==
[2023-04-16] VITALS (7 sets, daily range): BP systolic 166–194; BP diastolic 68–82; PULSE 60–85; RESP 7–20; TEMP 36.7–36.8; O2SAT 94–98; BMI 33.3
--- NOTE | 2023-04-16 13:59 | XR_ITS ---
FINAL REPORT TECHNIQUE: Single view chest CLINICAL HISTORY: sob COMPARISON: 01/03/2023 FINDINGS: A single view of the chest was obtained. The heart and mediastinum are within normal limits. There is mild bibasilar atelectasis or scarring. There is no pneumothorax. Osseous structures are unremarkable. IMPRESSION: Mild bibasilar atelectasis or scarring. Reviewed, Interpreted and Dictated by Reza Munoz III, MD Transcribed by Sangeetha Park Authenticated and [facility]
[2023-04-16 14:02] LABS: POC Glucose,Bedside 259 (70-110)
--- NOTE | 2023-04-16 14:07 | PC.NURSE ---
Notified RT of VBG order
--- NOTE | 2023-04-16 14:07 | PC.NURSE ---
RAD at for CXR
--- NOTE | 2023-04-16 14:08 | HMH.EDGENADL ---
Discharge Plan Disposition Patient Disposition: Home, Self-Care Prescriptions Prescriptions: No Action famotidine 20 mg tablet 20 mg PO HS furosemide 20 mg tablet 30 mg PO TID donepezil 10 mg tablet 10 mg PO HS acetaminophen 500 mg tablet 500 mg PO Q4HP PRN (Reason: pain/fever) docusate sodium 100 mg capsule 100 mg PO BID PRN (Reason: Constipation) pyridoxine (vitamin B6) 50 mg tablet 250 mg PO DAILY insulin lispro protamin-lispro [Humalog Mix 75-25 KwikPen] 100 unit/mL (75-25) insulin pen 40 unit SQ 1630 memantine 10 mg tablet 10 mg PO BID melatonin 10 mg capsule 10 mg PO HS PRN (Reason: Sleep) ziprasidone HCl 80 mg capsule 80 mg PO BID Rx Instructions: give with food (meal/snack) sennosides 8.6 mg tablet 8.6 mg PO BID gabapentin 300 mg capsule 300 mg PO TID Qty: 90 5RF oxycodone-acetaminophen 10-325 mg tablet 1 tab PO QID Qty: 120 0RF Farxiga 10 mg tablet 10 mg PO DAILY Qty: 30 2RF clopidogrel [Plavix] 75 mg tablet 75 mg PO DAILY Levemir FlexTouch U100 Insulin 100 unit/mL (3 mL) Insulin Pen 30 unit SQ HS brimonidine-timolol [Combigan] 0.2-0.5 % Drops 1 drp Eye-Both BID albuterol sulfate 1.25 mg/3 mL Solution For Nebulization 1.25 mg INHALATION Q4HP PRN (Reason: Shortness Of Breath) aspirin [Aspirin Childrens] 81 mg Tablet,Chewable 81 mg PO DAILY insulin lispro protamin-lispro [Humalog Mix 75-25 KwikPen] 100 unit/mL (75-25) Insulin Pen 45 unit SQ 0800 lactulose 10 gram/15 mL Solution 20 g PO BID budesonide-formoterol [Symbicort] 160-4.5 mcg/actuation HFA aerosol inhaler 2 puff inhalation BID artificial tear(llgvm-[id number]) 0.1-0.3-0.2 % Drops 1 drp Eye-Both BID ergocalciferol (vitamin D2) [Vitamin D2] 1,250 mcg (50,000 unit) Capsule 1,250 mcg PO WEEKLY cholecalciferol (vitamin D3) 50 mcg (2,000 unit) Tablet 50 mcg PO DAILY guaifenesin [Mucus Relief ER] 600 mg Tablet Extended Release 12hr 600 mg PO BID albuterol sulfate 90 mcg/actuation HFA aerosol inhaler 2 inh inhalation QID PRN (Reason: COPD) hydralazine 25 mg tablet 25 mg PO TID cyclobenzaprine 10 MG tablet 10 mg PO BID atorvastatin 40 MG tablet 40 mg PO HS levetiracetam 500 MG tablet 500 mg PO BID metoprolol tartrate 25 MG tablet 25 mg PO BID amlodipine 5 mg tablet 5 mg PO DAILY Referrals Follow up/Referrals: Darrel Shukla MD [Primary Care Provider] - See instructions Activity Restrictions/Add. Instructions Additional Instructions/Restrictions: At this time it was felt you are safe to be discharged home. If new or worsening symptoms please do not hesitate to return the emergency department. If symptoms persist please follow-up with your family doctor as you are able. Clinical Impressions Clinical Impression: Weakness Discharge ED Provider: Gonzalo Wolfe General Adult HPI <Cordell Hernández MD - Last Filed: 04/16/23 15:18> General Chief complaint: Altered Mental Status Stated complaint: swelling in both legs Time Seen by Provider: 04/16/23 13:50 Mode of Arrival: Wheelchair Source of Information: Patient and Medical Record Limitations: Altered Mental Status Description of Symptoms (Recalled from ER Triage Doc. by RN): pt was sent over from cardiology office due to not acting like his usual self, pt has hx of K+ issues as well as DM, upon triage fbs was 259, vitals were stable, +3 BLE edema, pt cc is altered mental status and generalized weakness History of Present Illness HPI narrative: Patient is a 63-year-old male with past medical history of COPD not on oxygen, coronary artery disease, CKD, previous hyperkalemia, dementia, insulin-dependent diabetes who presents emergency department for evaluation of altered mental status. I was contacted by cardiology when he presented to his follow-up appointment today who states
[2023-04-16 14:12] LABS: VBG Base Excess -0.9 mmol/L (-2.4-2.3); VBG HCO3 24.8 mmol/L (23-30); VBG Oxygen Saturation 73.2 % (50-70); VBG PCO2 46.9 mmol/L (35-51); VBG PH 7.34 mmol/L (7.31-7.41); VBG PO2 38.8 mmol/L (28-40); VBG Total CO2 26.3 mmol/L (23-27)
[2023-04-16 14:13] LABS: Basophils % 0.4 % (0.1-2.0); Eosinophils # 0.4 K/mm3 (0.0-0.4); Eosinophils % 3.8 % (0.1-12.0); Hematocrit 36.2 % (42.0-52.0); Hemoglobin 12.6 g/dL (14.1-18.0); Lymphocytes # 2.8 K/mm3 (0.7-4.5); Lymphocytes % 27.6 % (10-50); Mean Corpuscular HGB Conc 34.7 g/dL (31.8-35.4); Mean Corpuscular Hemoglobin 32.2 pg (27.0-31.2); Mean Corpuscular Volume 92.7 fl (80-94); Mean Platelet Volume 7.7 fl (7.4-10.4); Monocytes # 0.7 K/mm3 (0.1-1.0); Monocytes % 6.7 % (1.7-9.3); Neutrophils # 6.2 K/mm3 (1.8-7.8); Neutrophils % 61.5 % (37.0-80.0); Platelet Count 242 K/mm3 (142-424)
[2023-04-16 14:21] LABS: Alanine Aminotransferase 31 U/L (12-78); Albumin Level 3.8 g/dl (3.5-5.0); Albumin/Globulin Ratio 1.2 (1.1-1.8); Alkaline Phosphatase 66 U/L (38-126); Anion Gap 12.5 mEq/L (5-15); Aspartate Amino Transferase 44 U/L (17-59); Bilirubin,Total 0.4 mg/dl (0.2-1.3); Blood Urea Nitrogen 29 mg/dl (9-20); Calcium 8.9 mg/dl (8.4-10.2); Carbon Dioxide 31 mmol/L (22.0-30.0); Chloride 100 mmol/L (98-107); Creatinine Clearance Estimated 60 mL/min (50-200); Estimated Glomerular Filt Rate 47 ml/min (>60); GFR (African American) 57 ML/MIN (>60); Globulin 3.3 g/dL (1.3-3.2); Glucose 224 mg/dl (74-100); Magnesium 1.7 mg/dl (1.6-2.3); Potassium 5.5 mmoL/L (3.5-5.1); Sodium 138 mmol/L (136-145); Total Protein,Serum 7.1 g/dl (6.3-8.2)
--- NOTE | 2023-04-16 14:24 | ECG_ITS ---
APPROVED REPORT Exam: Resting ECG HR:66 bpm ECG Measurements Heart Rate 66 AXES RI 175 P 39 QRSd 150 QRS 93 QT 446 T 76 QTc 459 Conclusion SINUS RHYTHM RIGHT BUNDLE BRANCH BLOCK [120+ ms QRS DURATION, UPRIGHT V1, 40+ ms S IN I/aVL/V4/V5/V6] ABNORMAL ECG UNCONFIRMED REPORT Electronically signed by : Boom Coats MD 04/18/2023 11:04:58
[2023-04-16 14:30] LABS: Coronavirus 19, PCR Not Detected (NotDetected); Influenza A, PCR Not Detected (NotDetected); Influenza B, PCR Not Detected (NotDetected)
[2023-04-16 14:31] LABS: NT Pro Brain Natriuretic Pep. 256 pg/mL (0-125)
--- NOTE | 2023-04-16 14:40 | PC.NURSE ---
Pt made aware of need for urine sample. Advised he was unable to go at this time.
[2023-04-16 14:44] LABS: Troponin I < 0.01 ng/ml (0.00-0.034)
[2023-04-16 14:48] LABS: Lactic Acid 1.5 mmol/L (0.7-2.1)
--- NOTE | 2023-04-16 15:12 | PC.NURSE ---
Pt advised he is still unable to void at this time
[2023-04-16 15:21] LABS: Ammonia < 9 umol/L (9-30)
[2023-04-16 15:24] LABS: Microscopic, Urine URINE MICROSCOPIC (MICROSCOPIC)
--- NOTE | 2023-04-16 15:24 | XR_ITS ---
FINAL REPORT CLINICAL HISTORY: left ankle pain & swelling COMPARISON: None FINDINGS: LEFT ANKLE: Three views of the left ankle were obtained. There is no acute fracture or dislocation. The joint spaces and mortise are intact. Soft tissue swelling is present in the ankle. Vascular calcifications are noted in the soft tissues. IMPRESSION: No acute bony abnormality. Soft tissue swelling present. Reviewed, Interpreted and Dictated by Reza Munoz III, MD Transcribed by Xuan Goodwin Authenticated and [facility]
--- NOTE | 2023-04-16 15:25 | PC.NURSE ---
Pt reports doesn't feel like he needs to void. Bladder scan per ER MD Hernández request, shows 193 mL. Pt agreeable to in/out cath for specimen collection, ER states okay to in/out cath. specimen obtained and sent to lab.
[2023-04-16 15:38] LABS: Appearance,Urine CLEAR (Clear); Bilirubin,Urine Negative (Negative); Blood, Urine Negative (Negative); Color,Urine YELLOW (Yellow); Glucose,Urine (UA) 1+ (Negative); Ketones,Urine Negative (Negative); Leukocyte Esterase,Urine Negative (Negative); Nitrate,Urine Negative (Negative); Protein,Urine 3+ (Negative); Specific Gravity, Urine 1.025 (1.005-1.030); Urobilinogen,Urine 0.2 EU/dl (0.2)
--- NOTE | 2023-04-16 15:44 | PC.NURSE ---
RAD at BS
[2023-04-16 15:45] LABS: Squamous Epithelial Cell,Urine Occasional #/hpf (0-5); WBC,Urine Occasional #/hpf (0-3)
[2023-04-16 16:34] LABS: Acetone, Serum (Rapid) None Detected (None Detect)
--- NOTE | 2023-04-16 17:08 | PC.NURSE ---
Rounded on pt. Pt resting quietly in bed. No needs voiced at this time. Call light within reach.
[2023-04-16 17:11] LABS: Troponin I < 0.01 ng/ml (0.00-0.034)
--- NOTE | 2023-04-16 17:24 | PC.NURSE ---
Called report to Alexa VERA at [facility] and answered all questions.
--- NOTE | 2023-04-16 17:30 | PC.NURSE ---
[facility] notified of need of transport back to [place]
== END 2023-04-16 18:09 | disposition home or self-care (01) ==
PROVIDERS: Emergency Medicine; Emergency Provider Emergency Medicine; PCP Emergency Medicine
DX: E87.5 Hyperkalemia; I45.19 Other right bundle-branch block; N18.9 Chronic kidney disease, unspecified; E11.65 Type 2 diabetes mellitus with hyperglycemia; R53.1 Weakness; J44.9 Chronic obstructive pulmonary disease, unspecified; F17.210 Nicotine dependence, cigarettes, uncomplicated; I25.10 Atherosclerotic heart disease of native coronary artery without angina pectoris; F03.90 Unspecified dementia, unspecified severity, without behavioral disturbance, psychotic disturbance, mood disturbance, and anxiety; I11.9 Hypertensive heart disease without heart failure; E11.40 Type 2 diabetes mellitus with diabetic neuropathy, unspecified; G40.909 Epilepsy, unspecified, not intractable, without status epilepticus; Z79.4 Long term (current) use of insulin
CPT/HCPCS: 71045; 73610; 80053; 81001; 82009; 82140; 82803; 82962; 83605; 83735; 83880; 84484; 85025; 87636; 93005; 96374; 99285

== ENCOUNTER → 2023-04-22 15:30 | Outpatient (CLI) | payer MEDICAID, SELFPAY ==
[2023-04-22 17:47] LABS: Basophils # 0.1 K/mm3 (0-0.2); Basophils % 0.4 % (0.1-2.0); Eosinophils # 0.3 K/mm3 (0.0-0.4); Eosinophils % 1.8 % (0.1-12.0); Hematocrit 36.5 % (42.0-52.0); Hemoglobin 12.4 g/dL (14.1-18.0); Lymphocytes # 2.4 K/mm3 (0.7-4.5); Lymphocytes % 16.6 % (10-50); Mean Corpuscular HGB Conc 34.1 g/dL (31.8-35.4); Mean Corpuscular Hemoglobin 32.5 pg (27.0-31.2); Mean Corpuscular Volume 95.5 fl (80-94); Mean Platelet Volume 8.2 fl (7.4-10.4); Neutrophils # 10.7 K/mm3 (1.8-7.8); Neutrophils % 74.1 % (37.0-80.0); Platelet Count 253 K/mm3 (142-424); Red Blood Count 3.82 M/mm3 (4.60-6.20); Red Cell Distribution Width 14.1 % (11.5-17.5); White Blood Count 14.5 K/mm3 (4.8-10.8)
[2023-04-22 18:14] LABS: Alanine Aminotransferase 24 U/L (12-78); Albumin Level 3.9 g/dl (3.5-5.0); Albumin/Globulin Ratio 1.3 (1.1-1.8); Alkaline Phosphatase 79 U/L (38-126); Anion Gap 16.6 mEq/L (5-15); Aspartate Amino Transferase 24 U/L (17-59); Bilirubin,Total 0.3 mg/dl (0.2-1.3); Blood Urea Nitrogen 30 mg/dl (9-20); Calcium 9.1 mg/dl (8.4-10.2); Carbon Dioxide 31 mmol/L (22.0-30.0); Chloride 101 mmol/L (98-107); Estimated Glomerular Filt Rate 34 ml/min (>60); GFR (African American) 41 ML/MIN (>60); Globulin 2.9 g/dL (1.3-3.2); Glucose 160 mg/dl (74-100); Potassium 4.6 mmoL/L (3.5-5.1); Sodium 144 mmol/L (136-145); Total Protein,Serum 6.8 g/dl (6.3-8.2)
== END ==
PROVIDERS: PCP Emergency Medicine; Visit Provider Emergency Medicine
DX: R60.0 Localized edema (principal)
CPT/HCPCS: 80053; 85025

== ENCOUNTER → 2023-06-04 15:00 | Outpatient (CLI) | payer MEDICAID, SELFPAY ==
--- NOTE | 2023-06-04 15:05 | CT_ITS ---
FINAL REPORT TECHNIQUE: Axial images were obtained through the chest without contrast. The sagittal and coronal reformatted images were obtained and reviewed. This study was performed with techniques to keep radiation doses as low as reasonably achievable (ALARA). Individualized dose reduction techniques using automated exposure control or adjustment of mA and/or kV according to the patient's size were employed. CLINICAL HISTORY: 3-month follow-up right upper lobe nodule COMPARISON: 03/02/2023 FINDINGS: There is trace free fluid surrounding the ascending aorta, new since prior. There is extensive dense coronary artery calcification. There is no evidence of mediastinal mass or adenopathy. The previously identified 2 nodular opacities in the posterior right upper lobe have resolved. There are several new nodular opacities seen in the anterior right upper lobe with a 6 mm focus well seen on image 61 of series 3. In addition, there is some new linear and nodular density in the medial right upper lobe. On the coronal images, this focus measures 3.2 cm in craniocaudal dimension best seen on image number 46 of series 601. There is a nodular focus in the periphery of the right upper lobe measuring 9 mm in diameter well seen on image 130 of series 3. Other smaller nodular densities are seen in both lungs. There is abnormal thickening of the mucosa in the distal esophagus. IMPRESSION: Previously noted nodular densities in the right upper lobe have resolved. Interval development of multiple new densities as described. Given the time course and behavior, findings are favored to be inflammatory rather than neoplastic. Bronchoscopy may be of value. In addition, a three-month follow-up CT is recommended. Fluid around the ascending aorta of uncertain significance. New since previous. Please correlate with any acute chest symptoms. Dense coronary artery calcification. Abnormal mucosal thickening in the distal esophagus, may be due to infectious or reflux esophagitis. Reviewed, Interpreted and Dictated by Jorgito Gutierrez MD Transcribed by Bekah Lizarraga Authenticated and [facility]
== END ==
PROVIDERS: PCP Physician Assistant; Visit Provider Internal Medicine Pulmonary Disease
DX: R91.8 Other nonspecific abnormal finding of lung field (principal)
CPT/HCPCS: 71250